=== PATIENT | female | born 1955 | race African-American/Black ===

== ENCOUNTER 2020-05-08 15:06 | Outpatient (REF) | payer MEDICARE, MEDICAID, SELFPAY ==
[2020-05-08 16:11] LABS: Estimated Average Glucose 160 mg/dL; Hemoglobin A1c % 7.2 %
== END 2020-05-08 15:07 | disposition home or self-care (01) ==
LOC: HO.LAB 15:06
PROVIDERS: Absent Provider Internal Medicine Endocrinology, Diabetes & Metabolism; PCP Internal Medicine; Visit Provider Internal Medicine
DX: E11.65 Type 2 diabetes mellitus with hyperglycemia (principal)
CPT/HCPCS: 36415; 83036

== ENCOUNTER 2020-09-12 16:25 | Outpatient (REF) | payer MEDICARE, MEDICAID, SELFPAY ==
[2020-09-12 16:48] LABS: MANUAL DIFF FLAG NO
[2020-09-12 16:51] LABS: Basophils Percent Auto 0.6 % (0-2); Eosinophils Absolute Auto 0.1 X10*3/uL (0.0-0.4); Eosinophils Percent Auto 2.8 % (0-4); Hematocrit 36.6 % (37-47); Hemoglobin 12.4 g/dl (12.0-16.0); Lymphocytes Absolute Auto 2.1 X10*3/uL (1.2-4.9); Lymphocytes Percent Auto 45.5 % (20-40); Mean Corpuscular HGB Conc 33.9 g/dl (31.0-35.0); Mean Corpuscular Hemoglobin 29.7 pg (27.0-33.0); Mean Corpuscular Volume 87.8 fL (80-98); Mean Platelet Volume 9.8 fL (9.4-12.3); Monocytes Absolute Auto 0.5 X10*3/uL (0.1-1.2); Neutrophils Absolute Auto 1.9 X10*3/uL (2.0-8.3); Neutrophils Percent Auto 40.1 % (45-73); Platelet Count 244 X10*3/uL (160-400); Red Blood Count 4.17 X10*6/uL (4.20-5.50); White Blood Count 4.6 X10*3/uL (4.8-10.8)
[2020-09-12 17:15] LABS: Alanine Aminotransferase 14 U/L (0-31); Albumin Level 4.3 g/dL (3.5-5.0); Alkaline Phosphatase 70 U/L (39-117); Anion Gap 12 (12-20); Aspartate Amino Transferase 17 U/L (5-31); Bilirubin Total 0.6 mg/dL (0.0-1.0); Calcium 9.9 mg/dL (8.4-10.2); Carbon Dioxide 26 mmol/L (22-29); Chloride 107 mmol/L (96-108); Cholesterol 180 mg/dL; Estimated Glomerular Filt Rate > 60; Glucose Fasting 125 mg/dL (60-99); HDL Cholesterol 74 mg/dL; LDL Cholesterol Calculated 92 mg/dl; Potassium 4.2 mmol/L (3.3-5.1); Sodium 141 mmol/L (135-145); Total Protein 7.2 g/dL (6.5-8.0); Triglycerides 73 mg/dL
[2020-09-12 17:24] LABS: Blood Urea Nitrogen 15 mg/dL (9-16)
== END 2020-09-12 16:26 | disposition home or self-care (01) ==
LOC: HO.LAB 16:25
PROVIDERS: PCP Internal Medicine; Visit Provider Nurse Practitioner Family
DX: I10 Essential (primary) hypertension (principal); E78.5 Hyperlipidemia, unspecified; Z13.1 Encounter for screening for diabetes mellitus
CPT/HCPCS: 36415; 80053; 80061; 85025

== ENCOUNTER 2021-01-09 10:29 | Outpatient (REF) | payer MEDICARE, MEDICAID, SELFPAY ==
--- NOTE | ~2021-01-09 | US_ITS ---
EXAMINATION: US ABDOMEN COMPLETE CLINICAL INFORMATION: Unspecified abdominal pain. COMPARISON: None TECHNIQUE: Real-time imaging of the abdominal viscera. FINDINGS: PANCREAS: Normal. ABDOMINAL AORTA: The proximal, mid, and distal segments are normal in caliber. INFERIOR VENA CAVA: Visualized portions are normal. LIVER: The liver is normal in size. The liver contour is normal. The liver echotexture is normal. No focal hepatic lesion. There is no intrahepatic biliary duct dilatation seen. GALLBLADDER: The gallbladder is physiologically distended without evidence of stones, sludge, polyps, wall thickening or pericholecystic fluid. COMMON BILE DUCT: Normal in caliber measuring 0.5 cm in diameter. RIGHT KIDNEY: Normal. No hydronephrosis. No renal calculi or focal parenchymal lesions. The kidney measures 11.0 cm in maximum dimension. LEFT KIDNEY: There is a 1.1 x 1 x 1.4 cm cyst in the lower pole. No hydronephrosis or renal calculi. The kidney measures 9.5 cm in maximum dimension. SPLEEN: Normal. The spleen measures 9.0 cm in maximum dimension. FREE FLUID: None. US/US abdomen complete IMPRESSION: Small left renal cyst otherwise unremarkable exam.
== END 2021-01-09 10:30 | disposition home or self-care (01) ==
LOC: HO.US 10:29
PROVIDERS: PCP Internal Medicine; Visit Provider Internal Medicine
DX: R10.9 Unspecified abdominal pain (principal)
CPT/HCPCS: 76700

== ENCOUNTER 2021-04-22 13:38 | Outpatient (REF) | payer MEDICARE, MEDICAID, SELFPAY ==
[2021-04-22 14:35] LABS: COVID-19 Test Negative (Negative); IDNOW Serial# 16C4AD1C
== END 2021-04-22 13:39 | disposition home or self-care (01) ==
LOC: HO.LAB 13:38
PROVIDERS: Visit Provider Internal Medicine
DX: Z20.822 Contact with and (suspected) exposure to COVID-19 (principal)
CPT/HCPCS: 87635; C9803

== ENCOUNTER 2021-04-24 13:11 | Outpatient (REF) | payer MEDICARE, MEDICAID, SELFPAY ==
[2021-04-24 14:11] LABS: Hematocrit 38.1 % (37.0-47.0); Hemoglobin 13.2 g/dl (12.0-16.0); Mean Corpuscular HGB Conc 34.6 g/dl (31.0-35.0); Mean Corpuscular Hemoglobin 30.3 pg (27.0-33.0); Mean Corpuscular Volume 87.4 fL (80.0-98.0); Mean Platelet Volume 10.2 fL (9.4-12.3); Platelet Count 247 X10*3/uL (160-400); Red Blood Count 4.36 X10*6/uL (4.20-5.50); Red Cell Distribution Width 12.5 % (11.0-16.0)
[2021-04-24 14:35] LABS: Estimated Average Glucose 151 mg/dL; Hemoglobin A1c % 6.9 %
[2021-04-24 14:45] LABS: Alanine Aminotransferase 11 U/L (0-31); Albumin Level 4.2 g/dL (3.5-5.0); Alkaline Phosphatase 67 U/L (39-117); Anion Gap 14 (12-20); Aspartate Amino Transferase 13 U/L (5-31); Bilirubin Direct 0.2 mg/dL (0.0-0.5); Bilirubin Total 0.5 mg/dL (0.0-1.0); Blood Urea Nitrogen 15 mg/dL (9-16); Calcium 9.8 mg/dL (8.4-10.2); Carbon Dioxide 24 mmol/L (22-29); Chloride 106 mmol/L (96-108); Cholesterol 223 mg/dL; Estimated Glomerular Filt Rate > 60; Glucose Random 131 mg/dL (60-115); HDL Cholesterol 81 mg/dL; LDL Cholesterol Calculated 127 mg/dl; Potassium 3.7 mmol/L (3.3-5.1); Sodium 140 mmol/L (135-145); Total Protein 7.4 g/dL (6.5-8.0); Triglycerides 78 mg/dL
[2021-04-30 15:51] LABS: Vitamin D 25-OH, D2 <4 ng/mL; Vitamin D 25-OH, D3 19 ng/mL; Vitamin D 25-OH, Total 19 ng/mL (30-100)
== END 2021-04-24 13:12 | disposition home or self-care (01) ==
LOC: HO.LAB 13:11
PROVIDERS: PCP Internal Medicine; Visit Provider Internal Medicine
DX: E11.65 Type 2 diabetes mellitus with hyperglycemia (principal); E78.2 Mixed hyperlipidemia; I10 Essential (primary) hypertension; R07.9 Chest pain, unspecified
CPT/HCPCS: 36415; 80048; 80061; 80076; 82306; 83036; 84443; 85027

== ENCOUNTER 2021-04-30 14:07 | Outpatient (REF) | payer MEDICARE, MEDICAID, SELFPAY ==
[2021-04-30 14:33] LABS: Binax Internal Control QC Valid; Binax Now Covid-19 Ag Negative (Negative)
[2021-04-30 15:48] LABS: Creatinine Urine 82.52 mg/dL; Microalbum/Creatinine Ratio Ur 13.3 ug/mg cr
== END 2021-04-30 14:08 | disposition home or self-care (01) ==
LOC: HO.LAB 14:07
PROVIDERS: Internal Medicine; Visit Provider Internal Medicine
DX: Z20.822 Contact with and (suspected) exposure to COVID-19 (principal); E11.65 Type 2 diabetes mellitus with hyperglycemia; E78.2 Mixed hyperlipidemia; I10 Essential (primary) hypertension
CPT/HCPCS: 82043; C9803

== ENCOUNTER 2021-11-24 13:46 | Outpatient (REF) | payer MEDICARE, MEDICAID, SELFPAY ==
[2021-11-24 14:44] LABS: COVID-19 Test Negative (Negative)
== END 2021-11-24 13:47 | disposition home or self-care (01) ==
LOC: HO.LAB 13:46
PROVIDERS: Visit Provider Internal Medicine
DX: Z20.822 Contact with and (suspected) exposure to COVID-19 (principal)
CPT/HCPCS: 87635; C9803

== ENCOUNTER 2021-12-12 12:01 | Outpatient (REF) | payer MEDICARE, MEDICAID, SELFPAY ==
[2021-12-12 13:20] LABS: COVID-19 Test Negative (Negative); IDNOW Serial# 9DB6401D
== END 2021-12-12 12:02 | disposition home or self-care (01) ==
LOC: HO.LAB 12:01
PROVIDERS: Visit Provider Internal Medicine
DX: Z20.822 Contact with and (suspected) exposure to COVID-19 (principal)
CPT/HCPCS: 87635; C9803

== ENCOUNTER 2022-04-21 14:46 | Outpatient (REF) | payer MEDICARE, MEDICAID, SELFPAY ==
[2022-04-21 15:25] LABS: Hematocrit 38.5 % (37.0-47.0); Hemoglobin 13.3 g/dl (12.0-16.0); Mean Corpuscular HGB Conc 34.5 g/dl (31.0-35.0); Mean Corpuscular Volume 86.7 fL (80.0-98.0); Mean Platelet Volume 9.8 fL (9.4-12.3); Platelet Count 310 X10*3/uL (160-400); Red Blood Count 4.44 X10*6/uL (4.20-5.50); Red Cell Distribution Width 12.6 % (11.0-16.0); White Blood Count 8.1 X10*3/uL (4.8-10.8)
[2022-04-21 16:08] LABS: Alanine Aminotransferase 10 U/L (0-31); Albumin Level 4.2 g/dL (3.5-5.0); Alkaline Phosphatase 71 U/L (39-117); Anion Gap 17 (12-20); Aspartate Amino Transferase 14 U/L (5-31); Bilirubin Direct 0.3 mg/dL (0.0-0.5); Bilirubin Total 0.7 mg/dL (0.0-1.0); Blood Urea Nitrogen 24 mg/dL (9-16); Calcium 9.7 mg/dL (8.4-10.2); Carbon Dioxide 26 mmol/L (22-29); Chloride 100 mmol/L (96-108); Cholesterol 189 mg/dL; Estimated Glomerular Filt Rate 50; Glucose Random 219 mg/dL (60-115); HDL Cholesterol 70 mg/dL; LDL Cholesterol Calculated 101 mg/dl; Potassium 3.8 mmol/L (3.3-5.1); Sodium 139 mmol/L (135-145); Total Protein 7.6 g/dL (6.5-8.0); Triglycerides 93 mg/dL
[2022-04-21 16:13] LABS: Thyroid Stimulating Hormone 0.41 uIU/mL (0.32-4.0)
== END 2022-04-21 14:47 | disposition home or self-care (01) ==
LOC: HO.LAB 14:46
PROVIDERS: PCP Internal Medicine; Visit Provider Internal Medicine
DX: E11.65 Type 2 diabetes mellitus with hyperglycemia (principal); I10 Essential (primary) hypertension; E78.2 Mixed hyperlipidemia; E78.5 Hyperlipidemia, unspecified
CPT/HCPCS: 36415; 80048; 80061; 80076; 84443; 85027

== ENCOUNTER 2022-10-14 16:03 | Emergency (ER) | payer MEDICARE, MEDICAID, SELFPAY ==
--- NOTE | ~2022-10-14 | XR_ITS ---
EXAMINATION: XR TIBIA AND FIBULA, LEFT CLINICAL INFORMATION: Mid calf swelling. COMPARISON: None available. TECHNIQUE: AP and lateral views of the left tibia and fibula were obtained. FINDINGS: The bones and soft tissues are normal. No fracture. No osseous lesions. XR/XR tibia fibula LT 2V IMPRESSION: Unremarkable left tibia and fibula.
--- NOTE | 2022-10-14 16:40 | ED_ITS ---
HPI - General Adult General Chief complaint: Extremity Injury, Lower Stated complaint: Bump on left leg Time Seen by Provider: 10/14/22 19:11 Source: patient Mode of arrival: ambulatory Limitations: no limitations History of Present Illness HPI narrative: Patient is a 67-year-old female with a past medical history of hypercholesterolemia, diabetes, hyperlipidemia presenting with left lower extremity pain. Patient reports that she hit her leg on her car approximately 3 weeks ago and developed a bump on her anterior shabazz of her left leg. Patient reports she is able to ambulate without issues but the bump is tender to palpation. Patient denies fever, chills, night sweats, headache, vision changes, nausea, vomiting, chest pain, shortness of breath, numbness, tingling. Related Data Home Medications Medication Instructions Recorded Confirmed glipizide 5 mg tablet 10 mg PO BID 04/24/21 10/07/22 Previous Rx's Medication Instructions Recorded metformin 1,000 mg tablet 1,000 mg PO BID #180 tabs 12/16/20 metoprolol succinate 50 mg 50 mg PO BID #180 tabs 05/13/22 tablet,extended release 24 hr hydrochlorothiazide 25 mg tablet 25 mg PO QAM #90 tabs 07/07/22 simvastatin 10 mg tablet 10 mg PO BEDTIME #90 tabs 07/07/22 ketorolac 10 mg tablet 10 mg PO TID PRN pain 5 days #15 10/14/22 tabs Allergies Allergy/AdvReac Type Severity Reaction Status Date / Time No Known Allergies Allergy Verified 10/14/22 16:41 Review of Systems Review of Systems: Constitutional : No Weight loss, No Fever, No Chills, No Fatigue, No Malaise ENT/Mouth : No sore throat, No Rhinorrhea Eyes: No Eye Pain, No Swelling, No Redness Cardiovascular : No Chest Pain, No SOB, No Dyspnea on Exertion, No Orthopnea, No Edema, No Palpitations Respiratory : No Cough, No Sputum, No Wheezing Gastrointestinal : No Nausea, No Vomiting, No Diarrhea, No Constipation, No abdominal Pain, No Hematochezia, No Melena Genitourinary : No Dysuria, No Urinary Frequency, No Hematuria, Musculoskeletal : No joint pain, No Myalgias, No Joint Swelling +shabazz pain Skin : No Skin Lesions, No rash Neuro : No Weakness, No Numbness, No Dizziness, No Headache Psych : No Anxiety/Panic, No Depression All other systems reviewed and are negative Yes all other systems are reviewed and are negative [facility] Past Medical History Attestation statement: The following information was validated with the patient. Source: old records reviewed and nursing notes reviewed Medical History (Updated 10/14/22 @ 19:28 by JUSTIN Guevara) Adult general medical exam Benign essential HTN Hypercholesterolemia with hypertriglyceridemia Hyperlipidemia Screening for diabetes mellitus Type 2 diabetes mellitus with hyperglycemia Surgical History History of colonoscopy History of eye surgery History of partial hysterectomy Family History Family History Father No problems noted. Mother No problems noted. Sister No problems noted. Social History Social History Housing: House Alcohol intake: never Patient Tobacco Use Status: Never used Tobacco e-Cigarette/Vaping Use: Never Used Second Hand Smoke Exposure: No Advance Directives: No Advance Directives Information Provided: Yes service: No Current occupational status: retired Cognitive needs: No Hearing needs: No Vision needs: No Physical Exam ED Vital Signs: Vital Signs - 24 hr 10/14/22 16:41 Temperature 97.3 F Pulse Rate 72 Respiratory Rate 16 Blood Pressure 134/72 Pulse Oximetry 99 Oxygen Delivery Method Room Air BMI result Body Mass Index 23.6 vss Appearance: Alert.? Oriented X3.? No acute distress.? Head: Normocephalic, atraumatic, no step-offs or deformities Eyes: Pupils equal, round and reactive to light.? ENT: External ears normal. No pain with manipulation of external ears bilaterally. No mastoid tenderness. Neck: Normal inspection.? Neck supple.? CVS: Normal heart rate and rhythm.? Pulses normal.? Respiratory: No respiratory distress.? Breath sounds normal.? Abdomen: Soft and nontender.? Skin: Skin warm and dry.? Normal skin color.? Normal skin turgor.? Extremities: No lower extremity edema.? No calf ttp. 5/5 strength to bilateral upper and lower extremities +small bump on left anterior shabazz ttp Neuro: Oriented X 3.? No motor deficit.? No sensory deficit. CN 2-12 intact Course Course Course Narrative: This is a rapid medical exam: Additional HPI, ROS, PE not included below will be deferred to primary provider. Patient is a 67-year-old female with history of T2DM, hypercholesterolemia, hypertriglyceridema, HTN presenting to the emergency department with complaint of pain and swelling to left lower leg for the past 3 weeks. She reports initially injuring her leg by bumping it against the edge of her car. States she iced the area for the first week, has not used any OTC medications. Denies any numbness or tingling. Ambulating without difficulty. Mild swelling to mid anterior lower leg on left side, area is tender to palpation. No ecchymosis, erythema or warmth. Plan: x-ray Reevaluation(s) Reevaluation #1: X-ray unremarkable. Patient discharged Toradol. Educated patient on diagnosis and treatment plan, answered all question, patient verbalizes understanding. At this time patient will be discharged home, advised to return with new or worsening symptoms. Educated on worrisome signs and symptoms and when to return. At this time I feel comfortable discharge home. Medications Administered Discontinued Medications Generic Name Dose Route Start Last Admin Trade Name Freq PRN Reason Stop Dose Admin Ketorolac Tromethamine 30 mg 10/14/22 19:27 10/14/22 19:44 Ketorolac Tromethamine 15 Mg/Ml Vial IM 10/14/22 19:28 30 mg ONCE ONE Administration Medical Decision Making Medical Decision Making MDM Narrative: 67-year-old female with left lower extremity pain. Physical exam revealed small bump on left anterior shabazz. Tender to palpation. 3/10 pain Likely bone contusion. Unlikely fracture, dislocation, threatened limb, neurovascular compromise. plan: X-ray Differential Diagnosis Differential Diagnoses: The differential diagnosis associated with the presentation includes Likely bone contusion. Unlikely fracture, dislocation, threatened limb, neurovascular compromise. Admission/Observation Consideration of admission/observation: Escalation of care including admission/observation considered Unlikely Independent Interpretation I performed an independent interpretation of an: Plain X-Ray (The bones and soft tissues are normal. No fracture. No osseous lesions.) Radiology Impression Discussion of test interpretation with radiology: I have reviewed the radiologist's reading. Radiologist Impression: The bones and soft tissues are normal. No fracture. No osseous lesions. Prescription Management I considered prescription management with: Pain Medication Core Measures AMI core measures followed: Yes Measure exclusions: not indicated Critical Care Time Critical Care Time Critical Care Time: No Discharge Plan Discharge Clinical Impression: Contusion, Pain in left shabazz Patient Disposition: Home, Self-Care Instructions: Leg Pain (ED), Bone Bruise (ED) Additional Instructions: Take your medications as prescribed. If you were prescribed antibiotics today, it is important that you take your medication to their entirety, do not skip any doses, do not finish them early. Follow-up with your primary care provider this week. Return to the emergency department with new or worsening symptoms. Such as fevers, chills, chest pain, shortness of breath, nausea, vomiting, dizziness, headache, vision changes, lethargy In case of emergency call 911 Toradol has been sent to your pharmacy, you tolerated this well in the department. Please take this as prescribed do not take this with ibuprofen, or other NSAIDs, do not mix this with alcohol. Side effects of this medication including increased risk for bleeding and possible kidney injury. XR/XR tibia fibula LT 2V IMPRESSION: Unremarkable left tibia and fibula. Prescriptions: New ketorolac 10 mg tablet 10 mg PO TID PRN (Reason: pain) 5 Days Qty: 15 0RF No Action metoprolol succinate 50 mg tablet extended release 24 hr 50 mg PO BID Qty: 180 1RF hydrochlorothiazide 25 mg tablet 25 mg PO QAM Qty: 90 1RF simvastatin 10 mg tablet 10 mg PO BEDTIME Qty: 90 1RF metformin 1,000 mg tablet 1,000 mg PO BID Qty: 180 1RF glipizide 5 mg tablet 10 mg PO BID Referrals: [facility] [place] [Provider Group] - 2 weeks Jeremy Yip MD [Primary Care Provider] - 2 days Interventions: ED Discharge Assessment Last Done: 10/14/22 19:48 Discharge Date/Time: 10/14/22 19:48
[2022-10-14 16:41] VITALS: BP 134/72; PULSE 72; RESP 16; TEMP 36.3; O2SAT 99; BMI 23.6
[2022-10-14] MEDS: Ketorolac Tromethamine 15 MG/ML VIAL 30 MG IM (19:44)
== END 2022-10-14 19:48 | disposition home or self-care (01) ==
PROVIDERS: Emergency Provider Emergency Medicine Emergency Medical Services; PCP Internal Medicine
DX: M79.662 Pain in left lower leg (principal); S80.12XA Contusion of left lower leg, initial encounter; W22.09XA Striking against other stationary object, initial encounter; Y93.89 Activity, other specified; Y92.810 Car as the place of occurrence of the external cause; Y99.9 Unspecified external cause status
CPT/HCPCS: 73590; 96372; 99283; 99284; J1885

== ENCOUNTER 2023-04-08 14:00 | Outpatient (AMB) | payer MEDICARE, MEDICAID, SELFPAY ==
--- NOTE | 2023-04-08 14:17 | MHC.PC.OV ---
Vital Signs 04/08/23 14:20 04/08/23 14:36 Height 5 ft 5 in Weight 140 lb 2 oz BMI 23.3 BP 142/62 H 122/60 Blood Pressure Location Lt brachial Lt brachial Position Sitting Sitting Pulse 85 Pulse Source Pulse Oximeter Pulse Oximetry (%) 99 Oxygen Delivery Method Room Air Intake Visit Reasons: 6mth f/u Intake Note: Patient is here to follow up on DM, HTN, Hyperlipidemia. Formwork Carpenter Required: No Radioactivity Technician: Not Required per policy Accompanied by: Self / Same As Patient Allergies No Known Allergies Allergy (Verified 04/11/23 09:02) Medication List - Last Reconciled 04/11/23 by Jeremy Yip MD glipizide 10 mg PO BID hydrochlorothiazide 25 mg PO QAM metformin 1,000 mg PO BID metoprolol succinate ER 50 mg PO BID simvastatin 10 mg PO BEDTIME Tobacco use date assessed: 04/08/23 Fall risk assessment: No Falls in past year Last assessed Fall Risk: 04/08/23 Dental Screening Dental Screen Date: 04/08/23 Did you have a dental visit in the last 12 months?: No Did you have a dental problem in the last 6 months where you did not have access to dental care?: No Was dental information given to patient?: No HPI 6mth f/u HPI Details 67-year-old female presents to the office to discuss her chronic medical conditions. Patient over the last month has been very lows with her diet. Has been consuming a lot of sugars and simple carbohydrates. She does not check her blood sugars routinely. Able to function and do her activities of daily living. Patient is scheduled for a colonoscopy. [facility] Medical History Adult general medical exam Screening for diabetes mellitus Hyperlipidemia Type 2 diabetes mellitus with hyperglycemia Hypercholesterolemia with hypertriglyceridemia Benign essential HTN Surgical History History of colonoscopy History of partial hysterectomy History of eye surgery Family History Father No problems noted. Mother No problems noted. Sister No problems noted. Social History Housing: House Alcohol intake: never Patient Tobacco Use Status: Never used Tobacco e-Cigarette/Vaping Use: Never Used Second Hand Smoke Exposure: No service: No Current occupational status: retired Cognitive needs: No Hearing needs: No Vision needs: No Questionnaire PHQ-9 Over the last 2 weeks, how often have you been bothered by any of the following problems? 1. Little interest or pleasure in doing things: not at all 2. Feeling down, depressed, or hopeless: not at all 3. Trouble falling or staying asleep, or sleeping too much: not at all 4. Feeling tired or having little energy: not at all 5. Poor appetite or overeating: not at all 6. Feeling bad about yourself - or that you are a failure or have let yourself or your family down: not at all 7. Trouble concentrating on things, such as reading the newspaper or watching television: not at all 8. Moving or speaking so slowly that other people could have noticed. Or the opposite - being so fidgety or restless that you have been moving around a lot more than usual: not at all 9. Thoughts that you would be better off or of hurting yourself in some way: not at all Total score: 0 Depression Screening Interpretation: Negative Depression Screening Done: Yes Source: Developed by Drs. Javier Marmolejo, Miya Abernathy, Blayne Price and colleagues, with an educational lindsay from [employer]. Thrive Questionnaire Date Thrive assessed: 04/08/23 I am a: Patient What is your living situation today?: I have a steady place to live Within the past 12 months, did the food you bought not last and you didn't have the money to get more?: Never true Within the past 12 months, did you worry whether your food would run out before you got money to buy more?: Never true Do you have trouble paying for medicines?: No Do you have trouble getting transportation to medical appointments?: No Do you have trouble paying your heating and electricity bill?: No Do you have trouble taking care of your child, family member or friend?: No Do you have trouble with day-to-day activities such as bathing, preparing meals, shopping, managing finances, etc.?: No Are you currently unemployed and looking for a job?: No Are you interested in more education?: No Currently or been in a relationship where the following occur: no concerns reported AUDIT C Alcohol Use Questionnaire (AUDIT-C) 1. How often do you have a drink containing alcohol?: Never Total Score: 0 JEROME-7 AMB Questionnaire JEROME-7 Date JEROME - 7 assessed: 04/08/23 Feeling nervous, anxious, or on edge: 0 = Not at all Not being able to stop or control worryin = Not at all Worrying too much about different things: 0 = Not at all Trouble relaxin = Not at all Being so restless that it is hard to sit still: 0 = Not at all Becoming easily annoyed or irritable: 0 = Not at all Feeling afraid as if something awful might happen: 0 = Not at all Total JEROME-7 score (0-4 normal; 5-9 mild; 10-14 moderate; 15-21 severe): 0 Source: Developed by Drs. Javier Marmolejo, Miya Abernathy, Blayne Price and colleagues, with an educational lindsay from [employer]. Physical exam (Primary Care) Vital Signs: Last Vital Signs Pulse 85 04/08/23 14:20 BP 122/60 04/08/23 14:36 Pulse Ox 99 04/08/23 14:20 Oxygen Delivery Method Room Air 04/08/23 14:20 Care Plan Goal for BP management: Blood pressure is in range. Continue current medications. BMI result Body Mass Index 23.3 Tobacco/Smoking Status: Tobacco use Status Tobacco use date assessed 04/08/23 04/08/23 14:37 Patient Tobacco Use Status Never used Tobacco 04/08/23 14:37 e-Cigarette/Vaping Use Never Used 04/08/23 14:37 PHQ-9: PHQ-9 Score PHQ-9: Total score 0 04/09/23 13:25 Depression Screening Interpretation: Negative Thrive Assessment: Date of Thrive Assessment Date Thrive assessed 04/08/23 04/08/23 14:37 Currently or been in a relationship where the following occur: no concerns reported Const General: cooperative and healthy appearing Nutritional Appearance: well nourished Orientation/consciousness: patient oriented x3 Limitations: no limitations HENMT Head: Yes normal to inspection Eyes General: appearance normal, both eyes and all related structures Neck Neck: Yes normal visual inspection Chest Chest palpation & inspection: normal palpation of entire chest wall Resp Effort & Inspection: normal respiratory effort Neuro General: patient oriented x3 Office Procedures Flu Questionnaire Does the patient have a severe egg allergy?: No Does the patient have severe life threatening allergies?: No Does the patient have a fever or illness today?: No Has the patient ever had Guillain-[place] Syndrome?: No Has the patient ever had any past reaction to a flu shot?: No Results AMB Hemoglobin A1c AMB Hemoglobin A1c 11.1 % Last Edit by PATRICIA Silva on 04/08/23 14:41 Immunizations flu vacc [id number] 6mos up(PF) 60 mcg(15 mcgx4)/0.5 mL IM syringe Performing Provider: Jeremy Yip MD [facility] Administered by: PATRICIA Devries on 04/08/23 15:03 Dose Route Admin Location Dispensed Lot Number Expiration Date NDC Carpenter Labor Supervisor 0.5 mL IM Left Deltoid 0.5 mL [id number] 10/03/23 26439-112-04 [employer] VIS Given Date VIS Provided VIS Publication Date 04/08/23 Single Vaccine 20 Eligibility Eligibility Date Funding Source Not [facility] Eligible 04/08/23 Private Results Reviewed Results Reviewed: Laboratory Last Values Hgb A1c (Clinic) 11.1 % (4.0-6.0) H 04/08/23 14:17 Assessment and Plan Assessment & Plan (1) Type 2 diabetes mellitus with hyperglycemia: Code(s): E11.65 - Type 2 diabetes mellitus with hyperglycemia Qualifiers: Diabetes mellitus long-term insulin use: without intermediate designer use Qualified Code(s): E11.65 - Type 2 diabetes mellitus with hyperglycemia Plan: Patient's hemoglobin A1c is greater than 11. This is very concerning. I offered her new medications. Patient is not interested in taking the weekly injection. Jardiance has been added to the regimen. Patient was warned about the risks of high sugars. She has promised to change her diet and exercise more. She is also agreed to check her blood sugars more often. 20 minutes was spent counseling the patient. Orders: Orders AMB Hemoglobin A1c 04/08/23 E11.65 - Type 2 diabetes mellitus with hyperglycemia Influenza Immunization 04/08/23 Z23 - Encounter for immunization Medications: Refilled hydrochlorothiazide 25 mg PO QAM 90 tabs 1RF simvastatin 10 mg PO BEDTIME 90 tabs 1RF Coding Level of Care Code Est Pt Level 4 (99446) Diagnoses Type 2 diabetes mellitus with hyperglycemia, without long-term current use of insulin E11.65 Diabetes mellitus long-term insulin use: without intermediate designer use
[2023-04-08 14:20] VITALS: BP 142/62; PULSE 85; O2SAT 99; BMI 23.3
[2023-04-08 14:36] VITALS: BP 122/60
== END 2023-04-08 15:03 | disposition home or self-care (01) ==
PROVIDERS: PCP Internal Medicine; Visit Provider Internal Medicine
DX: E11.65 Type 2 diabetes mellitus with hyperglycemia (principal); Z23 Encounter for immunization
CPT/HCPCS: 83036; 90471; 90686; 99214

== ENCOUNTER 2023-08-10 14:01 | Outpatient (REF) | payer MEDICARE, MEDICAID, SELFPAY ==
[2023-08-10 15:32] LABS: Creatinine Urine 53.85 mg/dL; Microalbum/Creatinine Ratio Ur 12.9 ug/mg cr (<30)
[2023-08-10 16:08] LABS: Estimated Average Glucose 206 mg/dL; Hemoglobin A1c % 8.8 % (<6.0)
[2023-08-10 17:01] LABS: Vitamin B12 285 pg/mL (200-900)
[2023-08-10 20:06] LABS: Alanine Aminotransferase 13 U/L (0-31); Anion Gap 18 (12-20); Aspartate Amino Transferase 14 U/L (5-31); Blood Urea Nitrogen 23 mg/dL (9-16); Calcium 9.8 mg/dL (8.4-10.2); Carbon Dioxide 25 mmol/L (22-29); Chloride 102 mmol/L (96-108); Estimated Glomerular Filt Rate 52; Glucose Random 168 mg/dL (60-115); Potassium 3.9 mmol/L (3.3-5.1); Sodium 141 mmol/L (135-145)
[2023-08-10 20:21] LABS: TSH reflex Free T4 0.47 uIU/mL (0.32-4.0)
== END 2023-08-10 14:02 | disposition home or self-care (01) ==
LOC: HO.LAB 14:01
PROVIDERS: PCP Internal Medicine; Visit Provider Internal Medicine Endocrinology, Diabetes & Metabolism
DX: E11.42 Type 2 diabetes mellitus with diabetic polyneuropathy (principal); E04.2 Nontoxic multinodular goiter
CPT/HCPCS: 36415; 80048; 82043; 82570; 82607; 83036; 84443; 84450; 84460

== ENCOUNTER 2023-08-24 14:20 | Outpatient (AMB) | payer MEDICARE, MEDICAID, SELFPAY ==
--- NOTE | 2023-08-24 14:23 | MHC.PC.OV ---
Vital Signs 08/24/23 14:25 Height 5 ft 5 in Weight 134 lb 4 oz BMI 22.3 BP 100/68 Blood Pressure Location Lt brachial Position Sitting Pulse 70 Pulse Source Pulse Oximeter Pulse Oximetry (%) 97 Oxygen Delivery Method Room Air Intake Visit Reasons: medication follow up Intake Note: Patient is here to follow up on DM, HTN, HLD. Tool Radial Drill Press Set Up Operator Required: No Coal Feeder Operator: Not Required per policy Accompanied by: Self / Same As Patient Allergies No Known Allergies Allergy (Verified 08/24/23 14:25) Tobacco use date assessed: 08/24/23 Fall risk assessment: No Falls in past year Last assessed Fall Risk: 08/24/23 Dental Screening Dental Screen Date: 04/08/23 HPI medication follow up HPI Details 68-year-old female presents to the office to discuss chronic medical conditions. Since last office visit patient has been compliant with metformin, glipizide, Jardiance. She has had 1 urinary tract infection after starting Jardiance. Patient reports the blood sugar she has been recording at home is in the 130-150 range. Able to function and do all activities of daily living. [facility] Medical History Adult general medical exam Screening for diabetes mellitus Hyperlipidemia Type 2 diabetes mellitus with hyperglycemia Hypercholesterolemia with hypertriglyceridemia Benign essential HTN Surgical History History of colonoscopy History of partial hysterectomy History of eye surgery Family History Father No problems noted. Mother No problems noted. Sister No problems noted. Social History Housing: House Alcohol intake: never Patient Tobacco Use Status: Never used Tobacco e-Cigarette/Vaping Use: Never Used Second Hand Smoke Exposure: No service: No Current occupational status: retired Cognitive needs: No Hearing needs: No Vision needs: No Questionnaire Thrive Questionnaire Date Thrive assessed: 04/08/23 JEROME-7 AMB Questionnaire JEROME-7 Date JEROME - 7 assessed: 04/08/23 Source: Developed by Drs. Javier Marmolejo, Miya Abernathy, Blayne Price and colleagues, with an educational lindsay from [employer]. Physical exam (Primary Care) Vital Signs: Last Vital Signs Pulse 70 08/24/23 14:25 BP 100/68 08/24/23 14:25 Pulse Ox 97 08/24/23 14:25 Oxygen Delivery Method Room Air 08/24/23 14:25 BMI result Body Mass Index 22.3 Tobacco/Smoking Status: Tobacco use Status Tobacco use date assessed 08/24/23 08/24/23 14:27 Patient Tobacco Use Status Never used Tobacco 08/24/23 14:27 e-Cigarette/Vaping Use Never Used 08/24/23 14:27 Thrive Assessment: Date of Thrive Assessment Date Thrive assessed 04/08/23 08/24/23 14:27 Const General: cooperative and healthy appearing Nutritional Appearance: well nourished Orientation/consciousness: patient oriented x3 Limitations: no limitations HENMT Head: Yes normal to inspection Eyes General: appearance normal, both eyes and all related structures Neck Neck: Yes normal visual inspection Chest Chest palpation & inspection: normal palpation of entire chest wall Resp Effort & Inspection: normal respiratory effort Neuro General: patient oriented x3 Assessment and Plan Assessment & Plan (1) Type 2 diabetes mellitus with hyperglycemia: Code(s): E11.65 - Type 2 diabetes mellitus with hyperglycemia Qualifiers: Diabetes mellitus snf insulin use: without snf use Qualified Code(s): E11.65 - Type 2 diabetes mellitus with hyperglycemia Plan: Hemoglobin has improved from 11to 8.8. Patient is still very reluctant to take injectables. Continue same medications and will check in 3 months. Orders: Orders MM screening mammo BI Today Z12.31 - Encounter for screening mammogram for malignant neoplasm of breast Referrals [facility] [employer]ILD[employer] DES[employer] [facility]IST Referral Z12.4 - Encounter for screening for malignant neoplasm of cervix Medications: Refilled metformin 1,000 mg PO BID 180 tabs 1RF metoprolol succinate ER 50 mg PO BID 180 tabs 1RF glipizide 10 mg (2 x 5 mg) PO BID 60 tabs 0RF Coding Level of Care Code Est Pt Level 4 (93738) Diagnoses Type 2 diabetes mellitus with hyperglycemia, without long-term current use of insulin E11.65 Diabetes mellitus snf insulin use: without superintendent container terminal use
[2023-08-24 14:25] VITALS: BP 100/68; PULSE 70; O2SAT 97; BMI 22.3
== END 2023-08-24 15:07 | disposition home or self-care (01) ==
PROVIDERS: PCP Internal Medicine; Visit Provider Internal Medicine
DX: E11.65 Type 2 diabetes mellitus with hyperglycemia (principal)
CPT/HCPCS: 99214

== ENCOUNTER 2023-11-18 12:08 | Emergency (ER) | payer MEDICARE, MEDICAID, SELFPAY ==
[2023-11-18 12:18] VITALS: BP 119/70; PULSE 97; RESP 16; TEMP 36.9; O2SAT 98; BMI 22.7
--- NOTE | 2023-11-18 12:18 | ED.URI ---
HPI - URI/Sore Throat General Chief Complaint: Upper Respiratory Symptoms Stated Complaint: covid test Time Seen by Provider: 11/18/23 12:48 Source: patient Mode of arrival: ambulatory History of Present Illness ED Provider: Onel Wise PA-C HPI Narrative: 68 yo female with history of DM2, HTN, HLD who presents to the ER for evaluation of fever 100.4, dry cough and runny nose that started yesterday. Nonsmoker, no pulmonary history. No chest pain or SOB. She was at a family function over the weekend and was around a lot of people, but no known sick contacts. She is concerned she may have COVID. MD elicited complaint: fever, cough and rhinorrhea Onset (ago): day(s) (1) Consistency: intermittent Severity: moderate Description of mucous: clear Able to tolerate fluids by mouth: Yes Exacerbating factors: nothing Relieving factors: nothing Associated symptoms: fever and rhinorrhea Treatments prior to arrival: none Related Data Previous Rx's ?Medication ?Instructions ?Recorded empagliflozin 25 mg tablet 25 mg PO DAILY #90 tabs 04/12/23 (Jardiance) hydrochlorothiazide 25 mg tablet 25 mg PO QAM #90 tabs 06/07/23 simvastatin 10 mg tablet 10 mg PO BEDTIME #90 tabs 06/07/23 glipizide 5 mg tablet 10 mg (2 x 5 mg) PO BID #60 tabs 08/24/23 metformin 1,000 mg tablet 1,000 mg PO BID #180 tabs 08/24/23 metoprolol succinate 50 mg 50 mg PO BID #180 tabs 09/16/23 tablet,extended release 24 hr Allergies Allergy/AdvReac Type Severity Reaction Status Date / Time No Known Allergies Allergy Verified 11/18/23 12:20 Review of Systems Review of Systems: Yes all other systems are reviewed and are negative [facility] Past Medical History Medical History Adult general medical exam Screening for diabetes mellitus Hyperlipidemia Type 2 diabetes mellitus with hyperglycemia Hypercholesterolemia with hypertriglyceridemia Benign essential HTN Surgical History History of colonoscopy History of partial hysterectomy History of eye surgery Family History Family History Father No problems noted. Mother No problems noted. Sister No problems noted. Social History Social History Housing: House Alcohol intake: never Patient Tobacco Use Status: Never used Tobacco e-Cigarette/Vaping Use: Never Used Second Hand Smoke Exposure: No Advance Directives: No Advance Directives Information Provided: No service: No Current occupational status: retired Cognitive needs: No Hearing needs: No Vision needs: No Physical Exam Vital Signs: Vital Signs: Last Vital Signs Temp 98.5 F 11/18/23 13:01 Pulse 97 11/18/23 13:01 Resp 16 11/18/23 13:01 BP 119/70 11/18/23 13:01 Pulse Ox 98 11/18/23 13:01 O2 Del Method Room Air 11/18/23 12:18 BMI result Body Mass Index 22.7 Appearance: Alert. Oriented X3. No acute distress. Head: normocephalic, atraumatic. Eyes: Pupils equal, round and reactive to light. ENT: Pharynx normal. No tonsillar swelling or exudate. Neck: Normal inspection. Neck supple. CVS: Normal heart rate and rhythm. Pulses normal. Respiratory: No respiratory distress. Breath sounds normal. Abdomen: Thin, Soft and nontender. +BS x4 Skin: Skin warm and dry. Normal skin color. Normal skin turgor. No rashes. Extremities: No lower extremity edema. No joint swelling. Neuro/psych: Oriented X 3. Grossly normal, nonfocal Medical Decision Making Medical Decision Making MDM Narrative: 68 yo female presenting to the ER for evaluation of fevers, cough, URI sxs since yesterday. VS are stable on arrival to the ER. No productive cough or abnormal breath sounds to suggest PNA. ok to hold off on CXR today. She is breathing comfortably and speaking in complete sentences. no coughing noted. exam is benign. no KENNY with ambulation observed. Found to be COVID + patient counseled on dx and management along with preturn precautions. comfortable with discharge home and outpatient follow up Differential Diagnosis Differential Diagnoses: The differential diagnosis associated with the presentation includes strep, covid, flu, rsv, other viral syndrome, bronchitis, pneumonia Admission/Observation Consideration of admission/observation: Escalation of care including admission/observation considered elderly female with covid, considered obs vs admit however no pulm history and VS are stable. Lab Data MDM Lab Attestation statement: I reviewed the patient's lab results. Labs: Lab Results 11/18/23 Range/Units 12:27 COVID-19 (LEAH) Positive A (Negative) COVID-19 Clin Com See Note External Record Review External record reviewed: Outpatient record and Prior outpatient labs Tests considered The following testing was considered but not selected: CXR considered Prescription Management I considered prescription management with: Pain Medication, Antiviral and Antibiotic Critical Care Time Critical Care Time Critical Care Time: No Discharge Plan Discharge Clinical Impression: COVID-19 Patient Disposition: Home, Self-Care Instructions: COVID-19 (Coronavirus Disease 2019) (ED) Additional Instructions: You were found to be COVID-19 POSITIVE today. Your exam and oxygen levels were normal. Rest. Drink plenty of fluids. Do not go out in public while you are not feeling well. Take over the counter cold/flu medications as needed for your symptoms. Take Tylenol and/or Motrin as needed for fevers and body aches. Follow up with your doctor as needed. If you develop new or worsening symptoms call 911 or come back to the ER for further evaluation. Prescriptions: No Action Jardiance 25 mg tablet 25 mg PO DAILY Qty: 90 1RF hydrochlorothiazide 25 mg tablet 25 mg PO QAM Qty: 90 1RF simvastatin 10 mg tablet 10 mg PO BEDTIME Qty: 90 1RF metoprolol succinate 50 mg tablet extended release 24 hr 50 mg PO BID Qty: 180 1RF metformin 1,000 mg tablet 1,000 mg PO BID Qty: 180 1RF glipizide 5 mg tablet 10 mg PO BID Qty: 60 0RF Interventions: ED Discharge Assessment Last Done: 11/18/23 13:01 Discharge Date/Time: 11/18/23 13:01 Print Language: Greenlandic
[2023-11-18 12:39] LABS: COVID-19 Test Positive (Negative); IDNOW Serial# 08D9AD1C
[2023-11-18 13:01] VITALS: BP 119/70; PULSE 97; RESP 16; TEMP 36.9; O2SAT 98
== END 2023-11-18 13:01 | disposition home or self-care (01) ==
PROVIDERS: Physician Assistant; Emergency Provider Emergency Medicine; PCP Internal Medicine
DX: U07.1 COVID-19 (principal); J02.9 Acute pharyngitis, unspecified; Z79.899 Other long term (current) drug therapy
CPT/HCPCS: 87635; 99282; 99283

== ENCOUNTER 2023-12-16 13:33 | Outpatient (AMB) | payer MEDICARE, MEDICAID, SELFPAY ==
--- NOTE | 2023-12-16 13:36 | AM.OFFVISMDC ---
Intake Vital Signs 12/16/23 13:43 Height 5 ft 4 in Weight 128 lb 6 oz BMI 22.0 BP 110/70 Blood Pressure Location Lt brachial Position Sitting Pulse 82 Pulse Source Pulse Oximeter Pulse Oximetry (%) 100 Oxygen Delivery Method Room Air Intake Visit Reasons: IFEOMA G0439 Intake Note: Patient is here for an Annual Wellness Visit. Quality Analyst/Technical Writer Required: No Ed Educational Aide: Ed Educational Aide offered & declined Accompanied by: Self / Same As Patient Allergies No Known Allergies Allergy (Verified 12/16/23 13:43) HPI SWV G0439 HPI Details 68-year-old female presents to the office requesting an annual wellness visit. In addition patient wishes to discuss her diabetes. She had declined the use of injectables in the last office visit. Patient reports that her blood sugars have improved. She is concerned about her losing weight. She also has irritation around her eye that is recent. Patient had stopped the Jardiance on her own 3 weeks ago. [facility] Medical History Adult general medical exam Screening for diabetes mellitus Hyperlipidemia Type 2 diabetes mellitus with hyperglycemia Hypercholesterolemia with hypertriglyceridemia Benign essential HTN Surgical History History of colonoscopy (~08/20/17) History of partial hysterectomy History of eye surgery Family History Father No problems noted. Mother No problems noted. Sister No problems noted. Social History Housing: House Alcohol intake: never Patient Tobacco Use Status: Never used Tobacco e-Cigarette/Vaping Use: Never Used Second Hand Smoke Exposure: No service: No Current occupational status: retired Cognitive needs: No Hearing needs: No Vision needs: No Questionnaire Medicare Wellness Checkup [age] What gender do you identify with?: female During the past 4 weeks, how much have you been bothered by emotional problems such as feeling anxious, depressed, irritable, sad or downhearted, and blue?: not at all During the past 4 weeks, has your physical & emotional health limited your social activities with family, friends, neighbors, or groups?: not at all During the past 4 weeks, how much bodily pain have you generally had?: very mild pain During the past 4 weeks, was someone available to help you if you needed & wanted help?: yes, as much as I wanted During the past 4 weeks, what was the hardest physical activity you could do for at least 2 minutes?: heavy Can you get to places out of walking distance without help? (For eg., can you travel alone on buses, taxis or drive your car?): Yes Can you go shopping for groceries or clothes without someone's help?: Yes Can you prepare your own meals?: Yes Can you do your housework without help?: Yes Because of any health problems, do you need the help of another person with your personal care needs such as eating, bathing, dressing or getting around the house?: No Can you handle your own money without help?: Yes During the past 4 weeks, how would you rate your health in general?: very good During the past 4 weeks how have things been going for you?: pretty well Are you having difficulties driving your car?: no Do you always fasten your seat belt when you are in a car?: yes, usually During past 4 weeks, have you been bothered by the following: never: Falling or dizzy when standing up, Sexual problems?, Trouble eating well?, Teeth or denture problems? and Problems using the telephone? and seldom: Tiredness or fatigue? Have you fallen 2 or more times in the past year?: No Are you afraid of falling?: Yes Are you a smoker?: no During the past 4 weeks, how many drinks of wine, beer, or other alcoholic beverages did you have?: no alcohol at all Do you exercise for about 20 minutes 3 or more times a week?: yes, some of the time Have you been given information to help with the following?: yes: Keeping track of your medications? and no: Hazards in your house that might hurt you? How often do you have trouble taking medicines the way you have been told to take them?: I always take medicine as prescribed How confident are you that you can control & manage most of your health problems?: very confident What is your race?: Black or Mini Mental State Exam (MMSE) Orientation What is the (year) (season) (date) (day) (month)?: year, season, date and day Where are we (state) (county) (town or city) (hospital) (floor)?: state, county and town or city Attention & Calculation (CHOOSE ONE) Ask pt to begin with 100 & count backward by 7. Stop after 5 repeats. If pt cannot ask them to spell the word WORLD backward.: 93, 86, 79 and 72 Score Score: 11 Activity of Daily Living Bathing - sponge bath, tub bath or shower: receives no assistance (gets in/out by self, if usual bathing means Dressing - getting clothes from closets & drawers, including inner/outer garments & fasteners.: gets clothes & gets completely dressed without help Toileting - going to the 'toilet room' for urine/bowel elimination & cleaning self/arranging clothes: goes to toilet room, cleans self, arranges clothes without help Transfer: moves in & out of bed and chair without help (may use support object) Continence: controls urination/bowel movements completely by self Feeding: feeds self without help Total Score: 0 Using telephone: independent Traveling: independent Shopping: independent Preparing meals: independent Housework: independent Taking medicine: independent Managing money: independent PHQ-9 Over the last 2 weeks, how often have you been bothered by any of the following problems? 1. Little interest or pleasure in doing things: not at all 2. Feeling down, depressed, or hopeless: not at all 3. Trouble falling or staying asleep, or sleeping too much: not at all 4. Feeling tired or having little energy: not at all 5. Poor appetite or overeating: not at all 6. Feeling bad about yourself - or that you are a failure or have let yourself or your family down: not at all 7. Trouble concentrating on things, such as reading the newspaper or watching television: not at all 8. Moving or speaking so slowly that other people could have noticed. Or the opposite - being so fidgety or restless that you have been moving around a lot more than usual: not at all 9. Thoughts that you would be better off or of hurting yourself in some way: not at all Total score: 0 Depression Screening Interpretation: Negative Depression Screening Done: Yes Source: Developed by Drs. Javier Marmolejo, Miya Abernathy, Blayne Price and colleagues, with an educational lindsay from [employer]. Thrive Questionnaire Date Thrive assessed: 12/16/23 I am a: Patient What is your living situation today?: I have a steady place to live Within the past 12 months, did the food you bought not last and you didn't have the money to get more?: Never true Within the past 12 months, did you worry whether your food would run out before you got money to buy more?: Never true Do you have trouble paying for medicines?: No Do you have trouble getting transportation to medical appointments?: No Do you have trouble paying your heating and electricity bill?: No Do you have trouble taking care of your child, family member or friend?: No Do you have trouble with day-to-day activities such as bathing, preparing meals, shopping, managing finances, etc.?: No Are you currently unemployed and looking for a job?: No Are you interested in more education?: No Currently or been in a relationship where the following occur: No concerns reported THRIVE Score: 0 JEROME-7 AMB Questionnaire JEROME-7 Date JEROME - 7 assessed: 04/08/23 Feeling nervous, anxious, or on edge: 0 = Not at all Not being able to stop or control worryin = Not at all Worrying too much about different things: 0 = Not at all Trouble relaxin = Not at all Being so restless that it is hard to sit still: 0 = Not at all Becoming easily annoyed or irritable: 0 = Not at all Feeling afraid as if something awful might happen: 0 = Not at all Total JEROME-7 score (0-4 normal; 5-9 mild; 10-14 moderate; 15-21 severe): 0 Source: Developed by Drs. Javier Marmolejo, Miya Abernathy, Blayne Price and colleagues, with an educational lindsay from [employer]. JEROME-7 Assessment Billing JEROME-7 Assessment Tool: pt declined-do not bill Physical Exam Vital Signs: Last Vital Signs Pulse 82 12/16/23 13:43 BP 110/70 12/16/23 13:43 Pulse Ox 100 12/16/23 13:43 Oxygen Delivery Method Room Air 12/16/23 13:43 BMI result Body Mass Index 22.0 Balance: Normal Romberg: Negative Tandem Walk: Able to Walk and Turn: Able to Rise from sit to stand: Able to Hearing Whisper test: Pass [place] of care and screening document given to the patient. Const General: cooperative and healthy appearing Nutritional Appearance: well nourished Orientation/consciousness: patient oriented x3 Limitations: no limitations HEENT Other: Right and left eyes: Conjunctival congestion. Corneas clear. Anterior chambers clear. Head: Yes normal to inspection Eyes General: appearance normal, both eyes and all related structures Neck Neck: Yes normal visual inspection Chest Chest palpation & inspection: normal palpation of entire chest wall Resp Effort & Inspection: normal respiratory effort Neuro General: patient oriented x3 Results AMB Hemoglobin A1c AMB Hemoglobin A1c 8.2 % Last Edit by PATRICIA Silva on 12/16/23 13:56 Results Reviewed Results Reviewed: Laboratory Last Values Hgb A1c (Clinic) 8.2 % (4.0-6.0) H 12/16/23 13:35 Assessment & Plan Assessment & Plan (1) Benign essential HTN: Code(s): I10 - Essential (primary) hypertension Plan: Blood pressure is in range. Continue current medications. (2) Hypercholesterolemia with hypertriglyceridemia: Code(s): E78.2 - Mixed hyperlipidemia Plan: Cholesterol is in range. Continue current medications. (3) Type 2 diabetes mellitus with hyperglycemia: Code(s): E11.65 - Type 2 diabetes mellitus with hyperglycemia Qualifiers: Diabetes mellitus technician terminal and repeater insulin use: without technician terminal and repeater use Qualified Code(s): E11.65 - Type 2 diabetes mellitus with hyperglycemia Plan: A1c has improved from 8.8-8.1. I encourage patient to take the metformin, glipizide and Jardiance. Our records indicate she has had 4 lb of weight loss. blood work has been ordered. Orders: Orders AMB Hemoglobin A1c Today E11.65 - Type 2 diabetes mellitus with hyperglycemia Basic Metabolic Panel Today E11.65 - Type 2 diabetes mellitus with hyperglycemia, E78.2 - Mixed hyperlipidemia, I10 - Essential (primary) hypertension Microalbumin, Random (w Creat) Today E11.65 - Type 2 diabetes mellitus with hyperglycemia, E78.2 - Mixed hyperlipidemia, I10 - Essential (primary) hypertension C Reactive Protein Today E11.65 - Type 2 diabetes mellitus with hyperglycemia, E78.2 - Mixed hyperlipidemia Complete Blood Count no Diff Today E11.65 - Type 2 diabetes mellitus with hyperglycemia, E78.2 - Mixed hyperlipidemia, I10 - Essential (primary) hypertension Liver Panel Today E11.65 - Type 2 diabetes mellitus with hyperglycemia, E78.2 - Mixed hyperlipidemia, I10 - Essential (primary) hypertension Lipid Panel Today E11.65 - Type 2 diabetes mellitus with hyperglycemia, E78.2 - Mixed hyperlipidemia, I10 - Essential (primary) hypertension Thyroid Stimulating Hormone Today E11.65 - Type 2 diabetes mellitus with hyperglycemia, E78.2 - Mixed hyperlipidemia, I10 - Essential (primary) hypertension UA and rflx microscopic Today E11.65 - Type 2 diabetes mellitus with hyperglycemia, E78.2 - Mixed hyperlipidemia, I10 - Essential (primary) hypertension Erythrocyte Sedimentation Rate Today E11.65 - Type 2 diabetes mellitus with hyperglycemia, E78.2 - Mixed hyperlipidemia Quality Reporting (2019) Depression/Bipolar (159/160/161/177) PHQ-9: Total score: 0 Coding Level of Care Code Medicare Subsequent (G0439) Est Pt Level 4 (19278) Diagnoses Benign essential HTN I10 Hypercholesterolemia with hypertriglyceridemia E78.2 Type 2 diabetes mellitus with hyperglycemia, without long-term current use of insulin E11.65 Diabetes mellitus technician terminal and repeater insulin use: without mcc use Advance Care Planning Advance Care Planning discussion: Exists, not on file Date of discussion: 12/16/23 Who was present: Patient Forms completed: Health Care Proxy and MOLST Actual minutes spent: 5
[2023-12-16 13:43] VITALS: BP 110/70; PULSE 82; O2SAT 100; BMI 22.0
== END 2023-12-16 14:12 | disposition home or self-care (01) ==
PROVIDERS: PCP Internal Medicine; Visit Provider Internal Medicine
DX: Z00.00 Encounter for general adult medical examination without abnormal findings (principal); I10 Essential (primary) hypertension; E78.2 Mixed hyperlipidemia; E11.65 Type 2 diabetes mellitus with hyperglycemia
CPT/HCPCS: 83036; G0439

== ENCOUNTER 2023-12-17 12:12 | Outpatient (REF) | payer MEDICARE, MEDICAID, SELFPAY ==
[2023-12-17 12:39] LABS: Hematocrit 35.8 % (37.0-47.0); Hemoglobin 12.5 g/dl (12.0-16.0); Mean Corpuscular HGB Conc 34.9 g/dl (31.0-35.0); Mean Corpuscular Hemoglobin 30.9 pg (27.0-33.0); Mean Corpuscular Volume 88.6 fL (80.0-98.0); Mean Platelet Volume 10.1 fL (9.4-12.3); Platelet Count 233 X10*3/uL (160-400); Red Blood Count 4.04 X10*6/uL (4.20-5.50); Red Cell Distribution Width 13.6 % (11.0-16.0); White Blood Count 5.7 X10*3/uL (4.8-10.8)
[2023-12-17 13:16] LABS: Alanine Aminotransferase 12 U/L (0-31); Alkaline Phosphatase 60 U/L (39-117); Anion Gap 14 (12-20); Aspartate Amino Transferase 12 U/L (5-31); Bilirubin Direct 0.1 mg/dL (0.0-0.5); Bilirubin Total 0.4 mg/dL (0.0-1.0); Blood Urea Nitrogen 19 mg/dL (9-16); C Reactive Protein < 0.10 mg/dL (< or = 0.50); Calcium 9.7 mg/dL (8.4-10.2); Carbon Dioxide 27 mmol/L (22-29); Chloride 106 mmol/L (96-108); Cholesterol 162 mg/dL (<200); Estimated Glomerular Filt Rate 57; Glucose Random 191 mg/dL (60-115); HDL Cholesterol 74 mg/dL (>40); LDL Cholesterol Calculated 71 mg/dL (<100); Sodium 143 mmol/L (135-145); Triglycerides 86 mg/dL (<150)
[2023-12-17 13:29] LABS: Erythrocyte Sedimentation Rate 25 MM/HR (0-20)
[2023-12-17 13:30] LABS: Thyroid Stimulating Hormone 0.77 uIU/mL (0.32-4.0)
== END 2023-12-17 12:13 | disposition home or self-care (01) ==
LOC: HO.LAB 12:12
PROVIDERS: PCP Internal Medicine; Visit Provider Internal Medicine
DX: E11.65 Type 2 diabetes mellitus with hyperglycemia (principal); E78.2 Mixed hyperlipidemia; I10 Essential (primary) hypertension
CPT/HCPCS: 36415; 80048; 80061; 80076; 84443; 85027; 85652; 86140

== ENCOUNTER 2023-12-22 13:16 | Outpatient (REF) | payer MEDICARE, MEDICAID, SELFPAY ==
[2023-12-22 13:36] LABS: Appearance Urine Clear; Color Urine Yellow; Glucose Urine UA Negative (Negative); Leukocyte Esterase Urine Negative (Negative); Nitrite Urine Negative (Negative); PH 5.5 (5.0-9.0); Specific Gravity - Urine 1.015 (1.005-1.025); Urine Blood Negative (Negative); Urine Ketones Negative (Negative); Urine Protein Negative (Neg-Trace)
[2023-12-22 14:34] LABS: Microalbum/Creatinine Ratio Ur 13.9 ug/mg cr (<30)
== END 2023-12-22 13:17 | disposition home or self-care (01) ==
LOC: HO.LNP 13:16
PROVIDERS: Visit Provider Internal Medicine
DX: E11.65 Type 2 diabetes mellitus with hyperglycemia (principal); E78.2 Mixed hyperlipidemia; I10 Essential (primary) hypertension
CPT/HCPCS: 81003; 82043; 82570

== ENCOUNTER 2023-12-23 10:44 | Outpatient (AMB) | payer MEDICARE, MEDICAID, SELFPAY ==
--- NOTE | 2023-12-23 10:47 | MHC.OFFVIS ---
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 No complaints. Last Pap/HPV was many years ago, no history of abnormal Pap smears the patient is status post hysterectomy for benign myomas and heavy menstrual cycles 30 years ago Last Mammogram was in 10/26 at the [facility] according to the patient no reports available Last Colonoscopy was in April of 2023 according to patient was negative and recommendation was to repeat in 5 years, no reports available No recent DEXA scan [facility] Medical History Adult general medical exam Screening for diabetes mellitus Hyperlipidemia Type 2 diabetes mellitus with hyperglycemia Hypercholesterolemia with hypertriglyceridemia Benign essential HTN Surgical History History of colonoscopy (~08/20/17) History of partial hysterectomy History of eye surgery Family History Father No problems noted. Mother No problems noted. Sister No problems noted. Social History Household Members: Family Housing: House Alcohol intake: never Patient Tobacco Use Status: Never used Tobacco e-Cigarette/Vaping Use: Never Used Second Hand Smoke Exposure: No service: No Current occupational status: retired Cognitive needs: No Hearing needs: No Vision needs: No Female Reproductive History Menstrual Menopause type: natural Total pregnancies: 0 Review of Systems Const All systems reviewed & are unremarkable except as noted in HPI and below Card Reports as per HPI and Reports no additional complaints Resp Reports as per HPI and Reports no additional complaints GI Reports as per HPI and Reports no additional complaints Reports as per HPI Physical Exam Vital Signs: Last Vital Signs BP 118/70 12/23/23 11:12 BMI result Body Mass Index 21.9 Const General: cooperative, healthy appearing and comfortable General: Yes bladder normal to palpation External Female Exam: No lesion Speculum Exam - Vagina: normal appearance of the vagina, normal vaginal discharge and not erythematous Speculum Exam - Cervix: Cervix absent Bimanual exam- vagina & uterus: bladder normal to palpation and uterus absent Bimanual Exam- Adnexa, other: Other (No masses detected) Assessment & Plan Assessment & Plan (1) Well woman exam: Code(s): Z01.419 - Encounter for gynecological examination (general) (routine) without abnormal findings Category: Medical Plan: Co testing not indicated since the patient 's age is above 65 with no history of abnormal Pap smears last 25 years and status post hysterectomy for benign disease. Counseled the patient about the recommended dietary allowance of 1200 mg of Calcium & 800 IU of vitamin D. Instructions given the patient to schedule next screening Mammogram in 10/27. Will order DEXA scan . The patient was instructed to perform monthly self-breast exams and to schedule a 2 week DEXA scan follow-up appointment and an annual exam in a year; All questions answered and the patient verbalized understanding. Orders: Orders XR DEXA axial skeleton Today Z78.0 - Asymptomatic menopausal state Coding Level of Care Code New Pt Prev Care >65yr (03412) Diagnoses Well woman exam Z01.419
[2023-12-23 11:12] VITALS: BP 118/70; BMI 21.9
== END 2023-12-23 11:50 | disposition home or self-care (01) ==
LOC: HO.HWS 10:44
PROVIDERS: PCP Internal Medicine; Visit Provider Obstetrics & Gynecology
DX: Z01.419 Encounter for gynecological examination (general) (routine) without abnormal findings (principal)
CPT/HCPCS: 99387; 99397

== ENCOUNTER → 2023-12-23 10:44 | Outpatient (BNVA) | payer MEDICARE, MEDICAID, SELFPAY | PROVIDERS: PCP Internal Medicine; Visit Provider Obstetrics & Gynecology | DX: Z01.419 Encounter for gynecological examination (general) (routine) without abnormal findings (principal) | CPT/HCPCS: 99387 ==

== ENCOUNTER 2024-01-20 13:27 | Emergency (ER) | payer MEDICARE, MEDICAID, SELFPAY ==
--- NOTE | 2024-01-20 14:16 | ED_ITS ---
HPI - Eye Problem General Chief complaint: Eye Problems Stated complaint: eye problem Time Seen by Provider: 01/20/24 16:36 Source: patient Mode of arrival: ambulatory Limitations: no limitations History of Present Illness ED Provider: trisha HPI Narrative: Patient's history of glaucoma has chronic inflamed both eyes left more than right for last 2 months seen concrete smoother prescribed Pataday which is not working still feeling red specially when she wakes up in the morning no injury no loss of vision patient has been using brimonidine eyedrops for glaucoma Related Data Home Medications ?Medication ?Instructions ?Recorded ?Confirmed brimonidine 0.2 % eye drops 1 drp ophthalmic (eye) 12/16/23 Previous Rx's ?Medication ?Instructions ?Recorded empagliflozin 25 mg tablet 25 mg PO DAILY #90 tabs 04/12/23 (Jardiance) glipizide 5 mg tablet 10 mg (2 x 5 mg) PO BID #60 tabs 08/24/23 metformin 1,000 mg tablet 1,000 mg PO BID #180 tabs 08/24/23 metoprolol succinate 50 mg 50 mg PO BID #180 tabs 09/16/23 tablet,extended release 24 hr hydrochlorothiazide 25 mg tablet 25 mg PO QAM #90 tabs 11/20/23 simvastatin 10 mg tablet 10 mg PO BEDTIME #90 tabs 11/20/23 olopatadine 0.2 % eye drops 1 drp ophthalmic (eye) BEDTIME 01/04/24 (Pataday Once Daily Relief) #2.5 mL latanoprost 0.005 % eye drops 1 drp ophthalmic (eye) QPM #2.5 mL 01/20/24 olopatadine 0.2 % eye drops 1 drp ophthalmic (eye) BEDTIME 01/20/24 (Pataday Once Daily Relief) #2.5 mL tobramycin 0.3 % eye drops 1 drp ophthalmic (eye) Q4H #5 mL 01/20/24 Allergies Allergy/AdvReac Type Severity Reaction Status Date / Time No Known Allergies Allergy Verified 01/20/24 14:21 Review of Systems Review of Systems: Yes all other systems are reviewed and are negative PMFSH Past Medical History Medical History Adult general medical exam Screening for diabetes mellitus Hyperlipidemia Type 2 diabetes mellitus with hyperglycemia Hypercholesterolemia with hypertriglyceridemia Benign essential HTN Surgical History History of colonoscopy (~08/20/17) History of partial hysterectomy History of eye surgery Family History Family History Father No problems noted. Mother No problems noted. Sister No problems noted. Social History Social History Household Members: Family Housing: House Alcohol intake: never Patient Tobacco Use Status: Never used Tobacco e-Cigarette/Vaping Use: Never Used Second Hand Smoke Exposure: No Advance Directives: Yes Advance Directives Information Provided: No Advance Directives on File: No Do you have a plan to hurt others: No Plan service: No Current occupational status: retired Cognitive needs: No Hearing needs: No Vision needs: No Physical Exam Vital Signs: Vital Signs: Last Vital Signs Temp 98.7 F 01/20/24 17:48 Pulse 96 01/20/24 17:48 Resp 18 01/20/24 17:48 BP 150/94 H 01/20/24 17:48 Pulse Ox 100 01/20/24 17:48 O2 Del Method Room Air 01/20/24 17:48 BMI result Body Mass Index 29.0 Appearance: Alert. Oriented X3. No acute distress. EYE: IOP right eye 35 left eye 26 inflamed palpabral conjunctival , no exudate ENT: Pharynx normal. Oral Mucosa moist Neck: Normal inspection. Neck supple. CVS: Normal heart rate and rhythm. Pulses normal. Respiratory: No respiratory distress. Equal air entry bilateral, no wheezing/rales/rhonchi Skin: Skin warm and dry. Normal skin color. Normal skin turgor. Extremities: No lower extremity edema. Neuro: Oriented X 3. Course Course Course Narrative: This is a Rapid Medical Examination (RME) performed by Onel Wise PA-C in triage. Full HPI, ROS, assessment and treatment plan per primary provider in the Main ED. 68 yo female with history of hypertensive retinopathy, glaucoma, hemiretinal vein occlusion 2020, glaucoma presents to the ER for evaluation of painless bilateral eye redness for the last 1.5 - 2 months. no vision changes. no discharge or crusting. she reports itching and feeling like there are leaves in there. redness is worse every morning. she is on drops for the eyes and is supposed to be following up with her eye doctors soon. primary doctor told to her to come to the ER for evaluation. [place] [facility] [place]ations Administered Discontinued Medications Generic Name Dose Route Start Last Admin Trade Name Ladan PRN Reason Stop Dose Admin Latanoprost 1 drop 01/20/24 17:12 01/20/24 17:50 Latanoprost 0.005 % Ophth Monica 2.5 Ml Drops EYE-BOTH 01/20/24 17:13 1 drop ONCE ONE Administration Tobramycin Sulfate 2 drop 01/20/24 17:10 01/20/24 17:49 Tobramycin Sulfate 0.3% Monica Op 5 Ml Btl EYE-BOTH 01/20/24 17:11 2 drop ONCE ONE Administration Medical Decision Making Medical Decision Making [facility] Narrative: Patient with chronic inflammatory conjunctivitis will prescribe tobramycin had IOP pressure high in both eyes already on brimonidine will start patient on latanoprost eyedrops and follow up with concrete smoother as scheduled next week Differential Diagnosis Differential Diagnoses: The differential diagnosis associated with the presentation includes Discharge Plan Discharge Clinical Impression: Bacterial conjunctivitis, Glaucoma Patient Disposition: Home, Self-Care Instructions: Glaucoma (ED), Conjunctivitis (ED) Additional Instructions: Continue your prescribed eyedrops Start using latanoprost eye drops 1 drop in each eye daily Tobramycin eye drops 2 drops every 6 hours Continue olopatadine eyedrops Follow up with your concrete smoother as scheduled Prescriptions: New olopatadine [Pataday Once Daily Relief] 0.2 % drops 1 drp ophthalmic (eye) BEDTIME Qty: 2.5 0RF tobramycin 0.3 % drops 1 drp ophthalmic (eye) Q4H Qty: 5 0RF latanoprost 0.005 % drops 1 drp ophthalmic (eye) QPM Qty: 2.5 0RF No Action Jardiance 25 mg tablet 25 mg PO DAILY Qty: 90 1RF metoprolol succinate 50 mg tablet extended release 24 hr 50 mg PO BID Qty: 180 1RF simvastatin 10 mg tablet 10 mg PO BEDTIME Qty: 90 1RF hydrochlorothiazide 25 mg tablet 25 mg PO QAM Qty: 90 1RF olopatadine [Pataday Once Daily Relief] 0.2 % drops 1 drp ophthalmic (eye) BEDTIME Qty: 2.5 0RF metformin 1,000 mg tablet 1,000 mg PO BID Qty: 180 1RF glipizide 5 mg tablet 10 mg PO BID Qty: 60 0RF brimonidine 0.2 % drops 1 drp ophthalmic (eye) Interventions: ED Discharge Assessment Last Done: 01/20/24 17:48 Discharge Date/Time: 01/20/24 17:54 Print Language: Luxembourger
[2024-01-20 14:17] VITALS: BP 145/83; PULSE 89; RESP 16; TEMP 36.1; O2SAT 99; BMI 29.0
--- NOTE | 2024-01-20 17:28 | PC.NURSE ---
Called pharmacy and spoke to Kathleen about obtaining Latanaprost for the pt. Waiting on pharmacy to bring medicine then pt can be dc.
[2024-01-20 17:48] VITALS: BP 150/94; PULSE 96; RESP 18; TEMP 37.1; O2SAT 100
[2024-01-20] MEDS: Tobramycin Sulfate 0.3% Sol Op 5 ML BTL 2 DROP EYE-BOTH (17:49)
[2024-01-20] MEDS: Latanoprost 0.005 % Ophth Sol 2.5 ML DROPS 1 DROP EYE-BOTH (17:50)
== END 2024-01-20 17:54 | disposition home or self-care (01) ==
PROVIDERS: Emergency Provider Internal Medicine; PCP Internal Medicine
DX: H10.33 Unspecified acute conjunctivitis, bilateral (principal); H57.13 Ocular pain, bilateral; H40.9 Unspecified glaucoma; Z79.899 Other long term (current) drug therapy
CPT/HCPCS: 99282; 99283

== ENCOUNTER 2024-01-26 09:58 | Outpatient (REF) | payer MEDICARE, MEDICAID, SELFPAY ==
--- NOTE | ~2024-01-26 | MM_ITS ---
EXAMINATION: BONE DENSITOMETRY CLINICAL INDICATION: Menopause. COMPARISON: This is the patient's baseline examination. TECHNIQUE: Using a Hello[employer]ax DXA System (software version: 13.1) manufactured by [employer], dual-energy x-ray absorptiometry was performed of the lumbar spine and left hip. The images are of good technical quality. Summary results are attached. FINDINGS: LEFT FEMUR, NECK: BMD 0.802 g/cm2, Z-score -0.8, T-score -1.7, osteopenia. LEFT FEMUR, TOTAL: BMD 0.793 g/cm2, Z-score -1.0, T-score -1.7, osteopenia. AP SPINE L1-L4: BMD 1.153 g/cm2, Z-score 1.0, T-score -0.2, normal. IDENTIFIED RISK FACTORS: Early menopause, hysterectomy, right oophorectomy, secondary osteoporosis, thiazide. HISTORY OF FRACTURE: None listed. MEDICATIONS: None listed. MM/XR DEXA axial skeleton IMPRESSION: 1. DIAGNOSIS: Osteopenia based on the lowest T-score value of -1.7 in the femur neck and total femur applying World Health Organization criteria. 2. 10-YEAR FRACTURE RISK PREDICTION, FRAX: Major osteoporotic fracture (clinical spine, forearm, hip or shoulder) 4.4%. Hip fracture 0.8%. 3. Treatment Recommendations: NOF guidelines recommend consideration for treatment in postmenopausal women and men age 50 and older presenting with the following: -A hip or vertebral (clinical or morphometric) fracture. -T-score less than or equal to -2.5 at the femoral neck or spine after appropriate evaluation to exclude secondary causes. -Low bone mass at the hip or spine and a 10-year fracture probability by FRAX of greater than or equal to 3% for hip fracture or greater than or equal to 20% for major osteoporotic fracture based on the [place] adapted WHO algorithm. 4. Other Recommendations: All treatment decisions require clinical judgment and consideration of individual patient factors, including patient preferences, comorbidities, previous drug use, risk factors not captured in the FRAX model (e.g. frailty, falls, vitamin D deficiency, increased bone turnover, interval significant decline in bone density) and possible under or overestimation of fracture risk by FRAX. Additional medical evaluation for secondary cause of low bone mineral density may be appropriate. FUTURE SCAN RECOMMENDATION: People with diagnosed cases of osteoporosis or at high risk for fracture should have regular bone mineral density tests. For patients eligible for Medicare, routine testing is allowed once every 2 years. The testing frequency can be increased to one year for patients who have rapidly progressing disease, those who are receiving or discontinuing medical therapy to restore bone mass, or have additional risk factors. Electronically signed by: Mikal Napier MD 01/27/2024 12:34 PM EDT
== END 2024-01-26 09:59 | disposition home or self-care (01) ==
LOC: HO.MAMMO 09:58
PROVIDERS: PCP Internal Medicine; Visit Provider Obstetrics & Gynecology
DX: Z13.820 Encounter for screening for osteoporosis (principal); Z78.0 Asymptomatic menopausal state
CPT/HCPCS: 77080

== ENCOUNTER 2024-03-23 08:00 | Outpatient (AMB) | payer MEDICARE, MEDICAID, SELFPAY ==
--- NOTE | 2024-03-23 08:03 | A.OFFPC_ITS ---
Vital Signs 03/23/24 08:05 Height 5 ft 6 in Weight 123 lb 8 oz BMI 19.9 BP 120/72 Blood Pressure Location Lt brachial Position Sitting Pulse 98 Pulse Source Pulse Oximeter Pulse Oximetry (%) 97 Oxygen Delivery Method Room Air Intake Visit Reasons: 3 Month F/U Intake Note: Patient is here to follow up on DM, HLD, HTN. Complaint of red eyes Gaming Host Required: No Sewing Department Supervisor: Not Required per policy Accompanied by: Self / Same As Patient Allergies No Known Allergies Allergy (Verified 03/23/24 08:28) Medication List - Last Reconciled 03/23/24 by Jeremy Yip MD brimonidine 0.2% 1 drp ophthalmic (eye) empagliflozin (Jardiance) 25 mg PO DAILY glipizide 10 mg (2 x 5 mg) PO BID hydrochlorothiazide 25 mg PO QAM latanoprost 0.005% 1 drp ophthalmic (eye) QPM metformin 1,000 mg PO BID metoprolol succinate ER 50 mg PO BID olopatadine 0.2% (Pataday Once Daily Relief) 1 drp ophthalmic (eye) BEDTIME olopatadine 0.2% (Pataday Once Daily Relief) 1 drp ophthalmic (eye) BEDTIME simvastatin 10 mg PO BEDTIME tobramycin 0.3% 1 drp ophthalmic (eye) Q4H Tobacco use date assessed: 03/23/24 Fall risk assessment: No Falls in past year Last assessed Fall Risk: 03/23/24 Dental Screening Dental Screen Date: 04/08/23 [facility] Medical History (Updated 03/23/24 @ 08:29 by Jeremy Yip MD) Allergic conjunctivitis Adult general medical exam Screening for diabetes mellitus Hyperlipidemia Type 2 diabetes mellitus with hyperglycemia Hypercholesterolemia with hypertriglyceridemia Benign essential HTN Surgical History History of colonoscopy (~08/20/17) History of partial hysterectomy History of eye surgery Family History Father No problems noted. Mother No problems noted. Sister No problems noted. Social History Household Members: Family Housing: House Alcohol intake: never Patient Tobacco Use Status: Never used Tobacco e-Cigarette/Vaping Use: Never Used Second Hand Smoke Exposure: No service: No Current occupational status: retired Cognitive needs: No Hearing needs: No Vision needs: No Questionnaire Thrive Questionnaire Date Thrive assessed: 12/16/23 JEROME-7 AMB Questionnaire JEROME-7 Date JEROME - 7 assessed: 04/08/23 Source: Developed by Drs. Javier Marmolejo, Miya Abernathy, Blayne Price and colleagues, with an educational lindsay from [employer]. Physical exam (Primary Care) Vital Signs: Last Vital Signs Pulse 98 03/23/24 08:05 BP 120/72 03/23/24 08:05 Pulse Ox 97 03/23/24 08:05 Oxygen Delivery Method Room Air 03/23/24 08:05 BMI result Body Mass Index 19.9 Tobacco/Smoking Status: Tobacco use Status Tobacco use date assessed 03/23/24 03/23/24 08:10 Patient Tobacco Use Status Never used Tobacco 03/23/24 08:10 e-Cigarette/Vaping Use Never Used 03/23/24 08:10 Thrive Assessment: Date of Thrive Assessment Date Thrive assessed 12/16/23 03/23/24 08:10 Office Procedures Flu Questionnaire Does the patient have a severe egg allergy?: No Does the patient have severe life threatening allergies?: No Does the patient have a fever or illness today?: No Has the patient ever had Guillain-Betterton Syndrome?: No Has the patient ever had any past reaction to a flu shot?: No Results AMB Hemoglobin A1c AMB Hemoglobin A1c 8.1 % Last Edit by PATRICIA Silva on 03/23/24 08:16 Immunizations Fluarix Triv [id number] (PF) 45 mcg (15 mcg x 3)/0.5 mL IM syringe Performing Provider: Jeremy Yip MD [facility] [place] [facility] Administered by: Julissa Mann RN on 03/23/24 08:27 Dose Route Admin Location Dispensed Lot Number Expiration Date [facility] Sealing [employer] Canceling Machine Operator 0.5 mL IM Right Deltoid 0.5 mL [id number] 10/02/24 [id number] [employer] VIS Given Date VIS Provided VIS Publication Date 03/23/24 Single Vaccine 20 Eligibility Eligibility Date Funding Source Not [facility] Eligible 03/23/24 Private Results Reviewed Results Reviewed: Laboratory Last Values Hgb A1c (Clinic) 8.1 % (4.0-6.0) H 03/23/24 08:03 Coding Level of Care Code Est Pt Level 4 (23664) Complex EM visit Add On G2211 Diagnoses Benign essential HTN I10 Hypercholesterolemia with hypertriglyceridemia E78.2 Type 2 diabetes mellitus with hyperglycemia, without long-term current use of insulin E11.65 Diabetes mellitus retirement insulin use: without exterminator termite use Allergic conjunctivitis H10.10 Assessment & Plan Assessment & Plan (1) Benign essential HTN: Code(s): I10 - Essential (primary) hypertension Category: Medical Plan: BP is in range. Continue medications at same dosage. (2) Hypercholesterolemia with hypertriglyceridemia: Code(s): E78.2 - Mixed hyperlipidemia Category: Medical Plan: LDL in range. Continue meds at same dosage. (3) Type 2 diabetes mellitus with hyperglycemia: Code(s): E11.65 - Type 2 diabetes mellitus with hyperglycemia Category: Medical Qualifiers: Diabetes mellitus exterminator termite insulin use: without retirement use Qualified Code(s): E11.65 - Type 2 diabetes mellitus with hyperglycemia Plan: A1c is 8.1. Patient unwilling to consider insulin. (4) Allergic conjunctivitis: Code(s): H10.10 - Acute atopic conjunctivitis, unspecified eye Category: Medical Plan: Continue current regimen of olopatadine. Plan History of Present Illness The patient is a 68-year-old female presenting with diabetes management concerns. She reported good adherence to her medication regimen and noted that her blood glucose levels remain well-controlled, with occasional slight elevations in the morning. Despite this, she has experienced unintentional weight loss, specifically a reduction to approximately 123-125 pounds, raising her concern given her previous weight of 127 pounds a few tests earlier. Concurrently, the patient reported bilateral redness in her eyes persisting over three months. An emergency room evaluation indicated a bacterial presence, which was confirmed by an pin maker with no significant findings beyond potential allergic conjunctivitis. The redness persists, although without discharge, except for some residual crusting attributed possibly to eye drops. Previous interventions include antibiotic and non-antibiotic eye drops. Social History - Reports taking all prescribed medications as directed. - Monitors blood glucose levels regularly, adhering to diabetes management guidelines. - Expresses concern over weight management due to recent unintentional weight loss. Review of Systems - General: Denies sleep disturbances, appetite changes noted with concerns about weight loss. - Eyes: Reports redness but denies discharge other than sleep crusting. Physical Exam General: Appearance normal, redness in both eyes, likely due to allergies Nutritional Appearance: Well nourished, but patient reports weight loss Orientation/consciousness: Patient oriented x3 Limitations: No limitations Head: Normal to inspection Neck: Normal visual inspection Chest: Normal palpation of entire chest wall Respiratory: Normal respiratory effort Neurology: Patient oriented x3 Results - Labs: Blood work from December showed normal results. - Tests: Reports that mammogram was done this year. Plan - Conduct diabetes management follow-up and continue current medication regimen. Reinforce adherence to diet and exercise recommendations. - For weight loss, assess caloric intake and consider dietary supplementation to ensure adequate nutrition. - Prescribe non-antibiotic eye drops to address allergic conjunctivitis symptoms, with instructions to use for one month. - Note that COVID-19 vaccination can be administered; recommend visiting a pharmacy for this service. - Administer influenza vaccination as discussed during the visit. Patient was informed and verbally consented to the use of an ambient scribe for clinic note documentation during this visit. Discussion Notes I discussed with the patient that her diabetes management is effective, with morning blood glucose elevations being minimal and not a major concern. she is still reluctant to start insulin. I reassured her that the unintentional weight loss does not appear to be associated with any underlying sinister pathology. Regarding her ocular symptoms, I indicated that allergic conjunctivitis is a probable diagnosis given the lack of bacterial infection and proposed non- antibiotic eye drops might alleviate the redness, emphasizing that bacterial infections typically resolve more rapidly. We discussed her upcoming influenza vaccination and the COVID-19 vaccine process, explaining the need to visit a pharmacy for the latter. Our follow-up is scheduled in three months to reassess her condition. Patient Instructions - Continue diabetes medications as prescribed. - Monitor and record daily blood glucose levels. - Use prescribed non-antibiotic eye drops daily as directed. - Increase dietary calorie intake to stabilize weight. - Receive influenza vaccination today and plan for COVID-19 vaccination at a pharmacy. - Return for a follow-up appointment in three months to reassess condition. - Contact me if symptoms worsen or there are any new concerns. Orders: Orders AMB Hemoglobin A1c Today E11.65 - Type 2 diabetes mellitus with hyperglycemia Influenza [id number] Immunization Today Z23 - Encounter for immunization
[2024-03-23 08:05] VITALS: BP 120/72; PULSE 98; O2SAT 97; BMI 19.9
== END 2024-03-23 08:31 | disposition home or self-care (01) ==
PROVIDERS: PCP Internal Medicine; Visit Provider Internal Medicine
DX: I10 Essential (primary) hypertension (principal); E78.2 Mixed hyperlipidemia; E11.65 Type 2 diabetes mellitus with hyperglycemia; H10.10 Acute atopic conjunctivitis, unspecified eye; Z23 Encounter for immunization

== ENCOUNTER → 2024-03-23 08:00 | Outpatient (BNVA) | payer MEDICARE, MEDICAID, SELFPAY | PROVIDERS: PCP Internal Medicine; Visit Provider Internal Medicine | DX: Z23 Encounter for immunization (principal); I10 Essential (primary) hypertension; E78.2 Mixed hyperlipidemia; E11.65 Type 2 diabetes mellitus with hyperglycemia; H10.10 Acute atopic conjunctivitis, unspecified eye | CPT/HCPCS: 83036; 90471; 90656; 99212 ==

== ENCOUNTER 2024-05-11 11:37 | Outpatient (REF) | payer MEDICARE, MEDICAID, SELFPAY ==
--- OUTSIDE RECORDS SUMMARY | 2024-05-11 11:48 | XMS_ITS | Clinical Summary ---
Author Organization [facility] ity Address [address] [place] [address] Care Team Providers Care Can Washer Name Role Phone Ale Ledezma Primary Care Provider [phone] Social History Tobacco Use Types Packs/Day Years Used Date Smoking Tobacco: Never Assessed Sex and Gender Information Value Date Recorded Sex Assigned at Not on file Gender Identity Not on file Sexual Orientation Not on file Plan of Treatment Health Maintenance Due Date Last Done Comments Breast Cancer Screening 1955 DTaP,Tdap,and Td Vaccines (1 - Tdap) 1972 Zoster Vaccines (1 of 2) 08/10/2003 Pneumococcal Vaccine: 65+ Ye ars (1 of 1 - PCV) 2018 Colorectal Cancer Screening: Colonoscopy 03/04/2022 Depression Screening 03/04/2022 Falls Risk Assessment 03/04/2022 Hepatitis C Screening 03/04/2022 Osteoporosis Screening (Bone Density Screening) 03/04/2022 Social Influencers of Health Screening 03/04/2022 COVID-19 Vaccine ( - 2023-2 5 season) 2023 Influenza Vaccine (#1) 2023 02/08/2019 RSV Immunization Patients 60 + Years Old (1 - 1-dose 75+ series) 2028 HIB Vaccines Aged Out No longer eligi ble based on patient's age to complete this topic HPV Vaccines Aged Out No longer eligi ble based on patient's age to complete this topic Hepatitis A Vaccines Aged Out No long er eligible based on patient's age to complete this topic Hepatitis B Vaccines Aged Out No long er eligible based on patient's age to complete this topic IPV Vaccines Aged Out No longer eligi ble based on patient's age to complete this topic MMR Vaccines Aged Out No longer eligi ble based on patient's age to complete this topic Meningococcal ACWY Vaccine Aged Out N o longer eligible based on patient's age to complete this topic RSV Immunization Patients Un sabrina 20 months Aged Out No longer eligible b ased on patient's age to complete this topic Varicella Vaccines Aged Out No longer eligible based on patient's age to complete this topic Care Teams Can Washer Relationship Specialty Start Date End Date Ale Ledezma [address] [place] [address] Dr Qian MA PCP - General Internal Medicine 04/13/11
[2024-05-11 12:06] LABS: MANUAL DIFF FLAG NO
[2024-05-11 12:44] LABS: Basophils Percent Auto 0.5 % (0-2); Eosinophils Percent Auto 0.3 % (0-4); Hematocrit 41.2 % (37.0-47.0); Hemoglobin 14.6 g/dl (12.0-16.0); Lymphocytes Percent Auto 31.7 % (20-40); Mean Corpuscular HGB Conc 35.4 g/dl (31.0-35.0); Mean Corpuscular Hemoglobin 31.1 pg (27.0-33.0); Mean Corpuscular Volume 87.8 fL (80.0-98.0); Mean Platelet Volume 9.6 fL (9.4-12.3); Monocytes Absolute Auto 0.4 X10*3/uL (0.1-1.2); Monocytes Percent Auto 6.7 % (2-11); Neutrophils Absolute Auto 3.9 x10*3/uL (2.0-8.3); Neutrophils Percent Auto 60.8 % (45-73); Platelet Count 306 X10*3/uL (160-400); Red Blood Count 4.69 X10*6/uL (4.20-5.50); Red Cell Distribution Width 12.9 % (11.0-16.0); White Blood Count 6.4 X10*3/uL (4.8-10.8)
[2024-05-11 13:04] LABS: C Reactive Protein < 0.10 mg/dL (< or = 0.50); Rheumatoid Factor 74.9 IU/mL (<15.0)
[2024-05-11 13:21] LABS: Erythrocyte Sedimentation Rate 18 MM/HR (0-20)
[2024-05-16 12:43] LABS: Neutrophil Cyto Ab Screen NEGATIVE (NEGATIVE)
[2024-05-16 19:47] LABS: Treponema pallidum Ab FTA ABS Nonreactive (Nonreactive)
[2024-05-16 21:09] LABS: Angiotensin Converting Enzyme 49 U/L (9-67)
[2024-05-17 11:58] LABS: Anti Nuclear Antibody Screen NEGATIVE (NEGATIVE)
== END 2024-05-11 11:38 | disposition home or self-care (01) ==
LOC: HO.LAB 11:37
PROVIDERS: Visit Provider Ophthalmology
DX: H20.9 Unspecified iridocyclitis (principal)
CPT/HCPCS: 36415; 82164; 85025; 85652; 86036; 86038; 86140; 86431; 86780

== ENCOUNTER 2024-05-15 13:35 | Outpatient (REF) | payer MEDICARE, MEDICAID, SELFPAY ==
[2024-05-15 14:26] LABS: Estimated Average Glucose 157 mg/dL; Hemoglobin A1C 199.5682 umol/L; Hemoglobin A1c % 7.1 % (<6.0); Total Hemoglobin (HGBA1C) 3664.2122 umol/L
--- OUTSIDE RECORDS SUMMARY | 2024-05-15 14:47 | XMS_ITS | Clinical Summary ---
Author Organization [facility] ity Address [address] [place] [address] Care Team Providers Care Tawer Name Role Phone Ale Ledezma Primary Care Provider [phone] Social History Tobacco Use Types Packs/Day Years Used Date Smoking Tobacco: Never Assessed Comments Unknown Sex and Gender Information Value Date Recorded Sex Assigned at Not on file Legal Sex Female 1:08 AM EST Gender Identity Not on file Sexual Orientation Not on file Plan of Treatment Health Maintenance Due Date Last Done Comments Breast Cancer Screening 1955 DTaP,Tdap,and Td Vaccines (1 - Tdap) 1960 Pneumococcal Vaccine: 50+ Ye ars (1 of 1 - PCV) 08/10/2003 Zoster Vaccines (1 of 2) 08/10/2003 Colorectal Cancer Screening: Colonoscopy 03/04/2022 Depression Screening [...] patient's age to complete this topic Meningococcal B Vacine Aged Out No lo nger eligible based on patient's age to complete this topic RSV Immunization Patients Un sabrina 20 months Aged Out No longer eligible b ased on patient's age to complete this topic Varicella Vaccines Aged Out No longer eligible based on patient's age to complete this topic Care Teams Tawer Relationship Specialty Start Date End Date Ale Ledezma [address] [place] [address] Dr Qian MA PCP - General Internal Medicine 04/13/11
[2024-05-15 14:57] LABS: Alanine Aminotransferase 15 U/L (0-31); Anion Gap 16 (12-20); Aspartate Amino Transferase 19 U/L (5-31); Blood Urea Nitrogen 22 mg/dL (9-16); Calcium 9.8 mg/dL (8.4-10.2); Carbon Dioxide 28 mmol/L (22-29); Chloride 102 mmol/L (96-108); Estimated Glomerular Filt Rate 49; Glucose Random 171 mg/dL (60-115); Sodium 142 mmol/L (135-145)
[2024-05-15 15:15] LABS: TSH reflex Free T4 0.47 uIU/mL (0.32-4.0)
[2024-05-15 15:19] LABS: Vitamin B12 501 pg/mL (200-900)
== END 2024-05-15 13:36 | disposition home or self-care (01) ==
LOC: HO.LAB 13:35
PROVIDERS: PCP Internal Medicine; Visit Provider Internal Medicine Endocrinology, Diabetes & Metabolism
DX: E11.42 Type 2 diabetes mellitus with diabetic polyneuropathy (principal); E04.2 Nontoxic multinodular goiter
CPT/HCPCS: 36415; 80048; 82607; 83036; 84443; 84450; 84460

== ENCOUNTER 2024-05-26 14:33 | Outpatient (AMB) | payer MEDICARE, MEDICAID, SELFPAY ==
--- NOTE | 2024-05-26 14:36 | MHC.PC.OV ---
Vital Signs 05/26/24 14:42 Height 5 ft 6 in Weight 121 lb 2 oz BMI 19.5 BP 112/76 Blood Pressure Location Lt brachial Position Sitting Pulse 110 H Pulse Source Pulse Oximeter Temp 97.8 F Temp Source Temporal Artery Scan Pulse Oximetry (%) 99 Oxygen Delivery Method Room Air Intake Visit Reasons: f/u LABS Dr Lees General Inspector Required: No Accompanied by: Self / Same As Patient Allergies No Known Allergies Allergy (Verified 05/26/24 16:32) Medication List - Last Reconciled 05/26/24 by Hanh Jacobs PA-C blood sugar diagnostic (FreeStyle Lite Strips) As directed empagliflozin (Jardiance) 25 mg PO DAILY glipizide 10 mg (2 x 5 mg) PO BID hydrochlorothiazide 25 mg PO QAM metformin 1,000 mg PO BID metoprolol succinate ER 50 mg PO BID prednisolone acetate 1% drps ophthalmic (eye) simvastatin 10 mg PO BEDTIME Tobacco use date assessed: 03/23/24 Dental Screening Dental Screen Date: 04/08/23 [facility] Medical History Decreased hearing of left ear Tachycardia Rheumatoid factor positive Allergic conjunctivitis Adult general medical exam Screening for diabetes mellitus Hyperlipidemia Type 2 diabetes mellitus with hyperglycemia Hypercholesterolemia with hypertriglyceridemia Benign essential HTN Surgical History History of colonoscopy (~08/20/17) History of partial hysterectomy History of eye surgery Family History Father No problems noted. Mother No problems noted. Sister No problems noted. Social History Household Members: Family Housing: House Alcohol intake: never Patient Tobacco Use Status: Never used Tobacco e-Cigarette/Vaping Use: Never Used Second Hand Smoke Exposure: No service: No Current occupational status: retired Cognitive needs: No Hearing needs: No Vision needs: No Questionnaire PHQ-9 Over the last 2 weeks, how often have you been bothered by any of the following problems? 1. Little interest or pleasure in doing things: not at all 2. Feeling down, depressed, or hopeless: not at all 3. Trouble falling or staying asleep, or sleeping too much: not at all 4. Feeling tired or having little energy: not at all 5. Poor appetite or overeating: not at all 6. Feeling bad about yourself - or that you are a failure or have let yourself or your family down: not at all 7. Trouble concentrating on things, such as reading the newspaper or watching television: not at all 8. Moving or speaking so slowly that other people could have noticed. Or the opposite - being so fidgety or restless that you have been moving around a lot more than usual: not at all 9. Thoughts that you would be better off or of hurting yourself in some way: not at all Total score: 0 Depression Screening Interpretation: Negative Depression Screening Done: Yes 83183 - PHQ-9 Billing: Yes Source: Developed by Drs. Javier Marmolejo, Miya Abernathy, Blayne Price and colleagues, with an educational lindsay from [employer]. Thrive Questionnaire Date Thrive assessed: 05/26/24 I am a: Patient What is your living situation today?: I have a steady place to live Within the past 12 months, did the food you bought not last and you didn't have the money to get more?: Never true Within the past 12 months, did you worry whether your food would run out before you got money to buy more?: Never true Do you have trouble paying for medicines?: No Do you have trouble getting transportation to medical appointments?: No Do you have trouble paying your heating and electricity bill?: No Do you have trouble taking care of your child, family member or friend?: No Do you have trouble with day-to-day activities such as bathing, preparing meals, shopping, managing finances, etc.?: No Are you currently unemployed and looking for a job?: No Are you interested in more education?: No Please select the resources that you would like help with: None Currently or been in a relationship where the following occur: No concerns reported THRIVE Score: 0 AUDIT C Alcohol Use Questionnaire (AUDIT-C) 1. How often do you have a drink containing alcohol?: Never 3. How often do you have six or more drinks on one occasion?: Never Total Score: 0 Score Reviewed/Action Taken: Yes JEROME-7 AMB Questionnaire JEROME-7 Date JEROME - 7 assessed: 05/26/24 Feeling nervous, anxious, or on edge: 0 = Not at all Not being able to stop or control worryin = Not at all Worrying too much about different things: 0 = Not at all Trouble relaxin = Not at all Being so restless that it is hard to sit still: 0 = Not at all Becoming easily annoyed or irritable: 0 = Not at all Feeling afraid as if something awful might happen: 0 = Not at all Total JEROME-7 score (0-4 normal; 5-9 mild; 10-14 moderate; 15-21 severe): 0 Source: Developed by Drs. Javier Marmolejo, Miya Abernathy, Blayne Price and colleagues, with an educational lindsay from [employer]. JEROME-7 Assessment Billing JEROME-7 Assessment Tool: JEROME-7 Assessment 38686 Physical exam (Primary Care) Vital Signs: Last Vital Signs Temp 97.8 F 05/26/24 14:42 Pulse 110 H 05/26/24 14:42 BP 112/76 05/26/24 14:42 Pulse Ox 99 05/26/24 14:42 Oxygen Delivery Method Room Air 05/26/24 14:42 BMI result Body Mass Index 19.5 Tobacco/Smoking Status: Tobacco use Status Tobacco use date assessed 03/23/24 05/26/24 14:37 Patient Tobacco Use Status Never used Tobacco 05/26/24 14:37 e-Cigarette/Vaping Use Never Used 05/26/24 14:37 PHQ-9: PHQ-9 Score PHQ-9: Total score 0 05/26/24 15:31 Depression Screening Interpretation: Negative Thrive Assessment: Date of Thrive Assessment Date Thrive assessed 05/26/24 05/26/24 14:49 Currently or been in a relationship where the following occur: No concerns reported Office Procedures EKG Details: EKG sinus tachycardia with ventricular rate of 90. No acute ischemic change are noted. Reviewed by Dr. Schmitz [id number], Complete Coding Level of Care Code Est Pt Level 4 (39746) Complex EM visit Add On G2211 Diagnoses Rheumatoid factor positive R76.8 Tachycardia R00.0 Decreased hearing of left ear H91.92 Hyperlipidemia, unspecified hyperlipidemia type E78.5 Hyperlipidemia type: unspecified Type 2 diabetes mellitus with hyperglycemia, without long-term current use of insulin E11.65 Diabetes mellitus senior care insulin use: without senior care use Benign essential HTN I10 Hypercholesterolemia with hypertriglyceridemia E78.2 CPT Codes EKG - CPT: 73415-[id number], Complete ([id number]) Additional Codes JEROME-7 Assessment Billing - JEROME-7 Assessment Tool: JEROME-7 Assessment 69141 ([id number]) PHQ-9 - 67126 - PHQ-9 Billing: Yes ([id number]) Assessment & Plan Assessment & Plan (1) Rheumatoid factor positive: Code(s): R76.8 - Other specified abnormal immunological findings in serum Category: Medical Plan: Patient denies any other complaints related to this. Will refer to Rheumatology. Condition is chronic and stable continue to monitor. (2) Tachycardia: Code(s): R00.0 - Tachycardia, unspecified Category: Medical Plan: Sinus tachycardia with EKG. Dr. Glass reviewed this EKG with myself. No acute ischemic change are noted. Condition is chronic and stable continue to monitor. (3) Decreased hearing of left ear: Code(s): H91.92 - Unspecified hearing loss, left ear Category: Medical Plan: No cerumen impaction on my exam. Will refer to ENT for further evaluation management. Condition is chronic and stable continue to monitor. (4) Hyperlipidemia: Code(s): E78.5 - Hyperlipidemia, unspecified Category: Medical Qualifiers: Hyperlipidemia type: unspecified Qualified Code(s): E78.5 - Hyperlipidemia, unspecified Plan: LDL<70 patient currently on simvastatin 10 mg at bedtime. Condition is chronic and stable continue to monitor. (5) Type 2 diabetes mellitus with hyperglycemia: Code(s): E11.65 - Type 2 diabetes mellitus with hyperglycemia Category: Medical Qualifiers: Diabetes mellitus senior care insulin use: without intermodal truck driver use Qualified Code(s): E11.65 - Type 2 diabetes mellitus with hyperglycemia Plan: Patient currently on Jardiance 25 mg daily, glipizide 10 mg p.o. b.i.d., metformin 1000 mg p.o. b.i.d., baby aspirin 81 mg daily. Goal a1c <7.0 today at 7.1 will keep same regimen. Condition is chronic and stable continue to monitor. (6) Benign essential HTN: Code(s): I10 - Essential (primary) hypertension Category: Medical Plan: Patient currently on hydrochlorothiazide 25 mg daily, metoprolol 50 mg extended release p.o. b.i.d.. Goal 130/80. Condition is chronic and stable continue to monitor. (7) Hypercholesterolemia with hypertriglyceridemia: Code(s): E78.2 - Mixed hyperlipidemia Category: Medical Plan: Patient currently on simvastatin 10 mg at bedtime. Goal LDL <70. Condition is chronic and stable continue to monitor. Plan Plan Patient was informed and verbally consented to the use of an ambient scribe for clinic note documentation during this visit. 1. Type 2 Diabetes Mellitus Glycemic control to be managed with Jardiance 25 mg, glipizide 10 mg twice daily, and metformin 1000 mg twice daily. HbA1c noted improved to 7.1% from prior levels. 2. Presbyopia Continuation of current ophthalmic drops; prednisone drops were the only active prescription. Other drops were or discontinued as confirmed. 3. Hyperlipidemia Managed with simvastatin 10 mg daily. 4. Rheumatoid Factor Elevation Referral to rheumatology for further evaluation given elevated rheumatoid factor; urgent referral requested to expedite rheumatology evaluation. 5. Tachycardia EKG was obtained revealed sinus tachycardia. Reviewed by Dr. Glass. No acute ischemic change are noted. Condition is chronic and stable continue to monitor. 6. For decreased hearing to the left ear will refer to ENT for further evaluation and management. Orders: Orders AMB EKG-In Office Today R00.0 - Tachycardia, unspecified Referrals Rheumatology Referral R76.8 - Other specified abnormal immunological findings in serum Ear/Nose/Throat Referral H91.92 - Unspecified hearing loss, left ear Medications: New ferrous sulfate 325 mg PO DAILY 90 tabs 0RF aspirin (Adult Low Dose Aspirin) 81 mg PO DAILY 90 tabs 1RF Refilled empagliflozin (Jardiance) 25 mg PO DAILY 90 tabs 1RF empagliflozin (Jardiance) 25 mg PO DAILY 90 tabs 0RF Patient Instructions: Patient Instructions - Expect a call from rheumatology for scheduling your consultation. - Continue with your current medication regimen as prescribed. - Monitor your heart rate and seek immediate care if you experience any unusual palpitations or symptoms. - Report any changes in your joint or body pain. - For your medications, ensure [facility] delivers them and report any discrepancies. - Follow up as scheduled with Dr. De Luna. - Maintain a record of your ocular symptoms and report any new changes to your eye dog day care attendant. - follow-up with ear nose and throat doctor for decreased hearing of your left ear Scribe Plan - Not visible on output: History of Present Illness The patient is a 68-year-old female presenting with concerns related to recent laboratory findings. She was previously evaluated with extensive laboratory tests on May 11, which revealed an elevated rheumatoid facto obtain by Dr. Bhatia the machine tank operator. He recommended having the patient follow-up with PCP regarding this blood work. Despite this laboratory finding, the patient denies any joint or body pains. The tests, conducted due to ocular complaints, also involved assessments for lupus, syphilis, and vitamin levels. Her antinuclear antibodies (NOELLE) test was negative, ruling out lupus. Syphilis serology was negative, while vitamin B12, thyroid-stimulating hormone (TSH), and angiotensin-converting enzyme levels were within normal limits. C-reactive protein (CRP) and liver function tests (ALT, AST) were also normal. Hemoglobin A1c was 7.1, which had improved from 8.8 in the previous year. She was not under hospital tray service worker care previously. The ocular issue possibly incited the rheumatology workup model of care. Patient also reported decreased hearing from the left ear and was concerned for possible cerumen impaction. Social History - Relies on [employer] service for medication deliveries and refills. Review of Systems - Cardiovascular: Reports intermittent palpitations. - Gastrointestinal: Denies constipation. - Musculoskeletal: Denies joint pain or body pain. - Ocular: Reports past issues with vision. Physical Exam Appearance: Alert. Oriented X3. No acute distress. Head: Normal external exam. Normocephalic. Atraumatic. Eyes: Pupils are equal, round, and reactive to light. Extraocular movements intact. Conjunctiva and sclera normal. Eyelids normal. Ears: External auditory canal normal. Tympanic membranes normal. Bilateral ears have cerumen although they are not impacted at this time. Throat: Pharynx normal. Uvula midline. Moist mucous membranes. Neck: Normal inspection. Neck supple. Full range of motion. No adenopathy. Thyroid Normal. No meningeal signs. No neck mass noted. Cardiovascular: Heart rate is 110. Heart sounds slightly irregular. No murmurs noted. Pulses normal throughout. Respiratory: No respiratory distress. Painless inspiration. Breath sounds normal. No wheezes/rales/rhonchi noted. Chest nontender. No accessory muscle usage noted or decreased air movement noted. Abdomen: Soft and nontender. Bowel sounds normal in all 4 quadrants. No distention noted. No organomegaly noted. No visible injury noted. Back: No costovertebral angle tenderness. Full range of motion noted. Skin: Skin warm and dry. Normal skin color. Normal skin turgor. No rashes/lesions/lacerations noted. Extremities: No lower extremity edema. Extremities exhibit normal range of motion. Extremities nontender. Neuro: Oriented X 3. No motor deficit. No sensory deficit. Reflexes normal. Results - Labs: Elevated rheumatoid factor, negative NOELLE and syphilis serology, normal B12, TSH, CRP, ALT, AST. - Glycemic Control: HbA1c at 7.1%. - EKG sinus tachycardia with a ventricular rate of 90. No acute ischemic change are noted. Plan Patient was informed and verbally consented to the use of an ambient scribe for clinic note documentation during this visit. 1. Type 2 Diabetes Mellitus Glycemic control to be managed with Jardiance 25 mg, glipizide 10 mg twice daily, and metformin 1000 mg twice daily. HbA1c noted improved to 7.1% from prior levels. 2. Presbyopia Continuation of current ophthalmic drops; prednisone drops were the only active prescription. Other drops were or discontinued as confirmed. 3. Hyperlipidemia Managed with simvastatin 10 mg daily. 4. Rheumatoid Factor Elevation Referral to rheumatology for further evaluation given elevated rheumatoid factor; urgent referral requested to expedite rheumatology evaluation. 5. Tachycardia EKG was obtained revealed sinus tachycardia. Reviewed by Dr. Glass. No acute ischemic change are noted. Condition is chronic and stable continue to monitor. 6. For decreased hearing to the left ear will refer to ENT for further evaluation and management. Discussion Notes I informed the patient about the concerns regarding elevated rheumatoid factor, and I have referred her to rheumatology for further evaluation since the factor was high and symptomatic rheumatologic conditions were ruled out. Discussions included her improved glycemic control shown by the reduced HbA1c levels. I recommended an EKG due to the apparent irregular heartbeat and tachycardia to exclude atrial fibrillation. EKG was negative for ischemia or atrial fibrillation revealed tachycardia otherwise no acute ischemic changes. Reviewed by Dr. Glass. I assured her that once the tests and consultations are completed, we will address all emergent needs. We discussed the continuation of her current medications and the importance of compliance. Patient Instructions - Expect a call from rheumatology for scheduling your consultation. - Continue with your current medication regimen as prescribed. - Monitor your heart rate and seek immediate care if you experience any unusual palpitations or symptoms. - Report any changes in your joint or body pain. - For your medications, ensure [facility] delivers them and report any discrepancies. - Follow up as scheduled with Dr. De Luna. - Maintain a record of your ocular symptoms and report any new changes to your eye dog day care attendant. - follow-up with ear nose and throat doctor for decreased hearing of your left ear
[2024-05-26 14:42] VITALS: BP 112/76; PULSE 110; TEMP 36.6; O2SAT 99; BMI 19.5
--- OUTSIDE RECORDS SUMMARY | 2024-05-26 14:53 | XMS_ITS | Clinical Summary ---
Author Organization [facility] ity Address [address] [place] [address] Care Team Providers Care Oil Well Directional Surveyor Name Role Phone Ale Ledezma Primary Care Provider [phone] Social History Tobacco Use Types Packs/Day Years [...] DTaP,Tdap,and Td Vaccines (1 - Tdap) 1972 Pneumococcal Vaccine: 50+ Ye ars (1 of [...] age to complete this topic Care Teams Oil Well Directional Surveyor Relationship Specialty Start Date End Date Ale Ledezma [address] [place] [address] Dr Qian MA PCP - General Internal Medicine 04/13/11
== END 2024-05-26 15:28 | disposition home or self-care (01) ==
PROVIDERS: PCP Internal Medicine; Visit Provider Physician Assistant Medical
DX: R00.0 Tachycardia, unspecified (principal)

== ENCOUNTER → 2024-05-26 14:33 | Outpatient (BNVA) | payer MEDICARE, MEDICAID, SELFPAY | PROVIDERS: PCP Internal Medicine; Visit Provider Physician Assistant Medical | DX: R76.8 Other specified abnormal immunological findings in serum (principal); R00.0 Tachycardia, unspecified; H91.92 Unspecified hearing loss, left ear; E78.5 Hyperlipidemia, unspecified; E11.65 Type 2 diabetes mellitus with hyperglycemia; E78.2 Mixed hyperlipidemia; I10 Essential (primary) hypertension | CPT/HCPCS: 93005; 96127; 99212 ==

== ENCOUNTER 2024-07-20 13:32 | Outpatient (AMB) | payer MEDICARE, MEDICAID, SELFPAY ==
--- NOTE | 2024-07-20 13:33 | A.OFFPC_ITS ---
Vital Signs 07/20/24 13:34 Height 5 ft 6 in Weight 125 lb 8 oz BMI 20.3 BP 112/60 Blood Pressure Location Lt brachial Position Sitting Pulse 64 Pulse Source Pulse Oximeter Temp 96.9 F Temp Source Temporal Artery Scan Pulse Oximetry (%) 96 Oxygen Delivery Method Room Air Intake Visit Reasons: 3 month f/u - see comments Intake Note: Patient is here to follow up on DM. Engine Repairer Required: No Nurse Anesthesia Program Director: Not Required per policy Accompanied by: Self / Same As Patient Allergies No Known Allergies Allergy (Verified 07/20/24 13:34) Tobacco use date assessed: 07/20/24 Fall risk assessment: No Falls in past year Last assessed Fall Risk: 07/20/24 Dental Screening Dental Screen Date: 07/20/24 Did you have a dental visit in the last 12 months?: Yes Did you have a dental problem in the last 6 months where you did not have access to dental care?: No Was dental information given to patient?: Patient has dentist [facility] Medical History Decreased hearing of left ear Tachycardia Rheumatoid factor positive Allergic conjunctivitis Adult general medical exam Screening for diabetes mellitus Hyperlipidemia Type 2 diabetes mellitus with hyperglycemia Hypercholesterolemia with hypertriglyceridemia Benign essential HTN Surgical History History of colonoscopy (~08/20/17) History of partial hysterectomy History of eye surgery Family History Father No problems noted. Mother No problems noted. Sister No problems noted. Social History Household Members: Family Housing: House Alcohol intake: never Patient Tobacco Use Status: Never used Tobacco e-Cigarette/Vaping Use: Never Used Second Hand Smoke Exposure: No service: No Current occupational status: retired Cognitive needs: No Hearing needs: No Vision needs: No Questionnaire Thrive Questionnaire Date Thrive assessed: 05/26/24 JEROME-7 AMB Questionnaire JEROME-7 Date JEROME - 7 assessed: 05/26/24 Source: Developed by Drs. Javier Marmolejo, Miya Abernathy, Blayne Price and colleagues, with an educational lindsay from [employer]. Physical exam (Primary Care) Vital Signs: Last Vital Signs Temp 96.9 F 07/20/24 13:34 Pulse 64 07/20/24 13:34 BP 112/60 07/20/24 13:34 Pulse Ox 96 07/20/24 13:34 Oxygen Delivery Method Room Air 07/20/24 13:34 BMI result Body Mass Index 20.3 Tobacco/Smoking Status: Tobacco use Status Tobacco use date assessed 07/20/24 07/20/24 13:49 Patient Tobacco Use Status Never used Tobacco 07/20/24 13:49 e-Cigarette/Vaping Use Never Used 07/20/24 13:49 Thrive Assessment: Date of Thrive Assessment Date Thrive assessed 05/26/24 07/20/24 13:49 Coding Level of Care Code Est Pt Level 4 (73049) Complex EM visit Add On G2211 Diagnoses Urinary incontinence R32 Assessment & Plan Assessment & Plan (1) Urinary incontinence: Code(s): R32 - Unspecified urinary incontinence Plan: Advised her to keep the appt with the urologist. Continue Jardiance. Benefits from medication surpass the side effects including frequent urination Plan History of Present Illness The patient is a 68-year-old female presenting with routine management concerns for her current health issues. She experiences elevated intraocular pressure, managed through ophthalmologic care, requiring glaucoma eye drops. She reports urinary incontinence involving frequent urination, which is partially managed by fluid intake control and wearing absorbent pads during outings. Her diabetes is managed, with her medication, Jardiance, benefiting both her glycemic control and cardiovascular health. She associates her occasional abdominal pain, likely linked to diverticulitis, with dietary indiscretions. Preventive care is up-to-date with a pending mammogram in August or September. Social History - Patient actively manages her diabetes and sees healthcare providers regularly. - Employs strategies such as managing fluid intake to partially mitigate urinary incontinence. - Driving is self-reported as part of regular activity. Review of Systems - Ophthalmology: Reports increased intraocular pressure. - Genitourinary: Reports urinary incontinence, characterized by frequency. - Endocrinology: Denies any excessive blood sugar levels. - Gastrointestinal: Reports history of diverticulitis with occasional associated pain. - Overall systems: Denies any current abdominal pain. Physical Exam General: Cooperative and healthy appearing Nutritional Appearance: Well nourished Orientation/consciousness: Patient oriented x3 Limitations: No limitations Head: Normal to inspection General: Appearance normal, both eyes and all related structures Neck: Normal visual inspection Chest: Normal palpation of entire chest wall Respiratory: Normal respiratory effort Neurology: Patient oriented x3 Results Plan I advised continuation of glaucoma management with eye drops, emphasizing their necessity due to increased intraocular pressure. The patient will consult with a university demonstrator to evaluate her urinary incontinence, temporarily managing the condition through fluid control. Jardiance remains part of her diabetes management plan due to its benefits for heart and blood glucose control. A routine mammogram is scheduled for August or September, ensuring preventive health care compliance. No current medication refills were necessary, and we will re- evaluate her condition in six months. Patient was informed and verbally consented to the use of an ambient scribe for clinic note documentation during this visit. Discussion Notes I explained that the increased intraocular pressure necessitates resuming glaucoma drops, as advised by her options advisor. For her urinary incontinence, we agreed on awaiting further assessment by her university demonstrator but advised managing symptoms with controlled fluid intake. We reviewed the benefits of continuing Jardiance for her diabetes and heart health. I confirmed that her blood sugar levels are in good range. We discussed the importance of maintaining her preventive care schedule, including the upcoming mammogram. Follow-up in six months was agreed upon to assess any changes or needs for medication adjustments. Patient Instructions - Continue using glaucoma eye drops as previously instructed by the eye doctor. - Manage fluid intake to help control urinary incontinence until upcoming university demonstrator visit. - Continue Jardiance for diabetes and cardiovascular health as prescribed. - Schedule and attend a mammogram in August or September. - Follow-up in six months for routine evaluation and care management.
[2024-07-20 13:34] VITALS: BP 112/60; PULSE 64; TEMP 36.1; O2SAT 96; BMI 20.3
--- OUTSIDE RECORDS SUMMARY | 2024-07-20 16:34 | XMS_ITS | Clinical Summary ---
Author Organization [facility] ity Address [address] [place] [address] Care Team Providers Care Transportation Museum Helper Name Role Phone Ale eLdezma Primary Care Provider [phone] Social History Tobacco Use Types Packs/Day Years [...] Influencers of Health Screening 03/04/2022 COVID-19 Vaccine (2023-2 5 season) 2023 Influenza Vaccine (Season Ended) 2024 02/09/20 19 RSV Immunization Adult Patie nts (1 - 1-dose 75+ series) 2028 HIB [...] age to complete this topic Meningococcal B Vaccine Aged Out No l onger eligible based on patient's age to complete this topic RSV Immunization Patients Un sabrina 20 months Aged Out No longer eligible b ased on patient's age to complete this topic Varicella Vaccines Aged Out No longer eligible based on patient's age to complete this topic Care Teams Transportation Museum Helper Relationship Specialty Start Date End Date Ale Ledezma [address] [place] [address] Dr Qian MA PCP - General Internal Medicine 04/13/11
== END 2024-07-20 14:02 | disposition home or self-care (01) ==
LOC: HO.HMCH 13:32
PROVIDERS: PCP Internal Medicine; Visit Provider Internal Medicine
DX: R32 Unspecified urinary incontinence (principal)

== ENCOUNTER → 2024-07-20 13:32 | Outpatient (BNVA) | payer MEDICARE, MEDICAID, SELFPAY | PROVIDERS: PCP Internal Medicine; Visit Provider Internal Medicine | DX: R32 Unspecified urinary incontinence (principal); E11.9 Type 2 diabetes mellitus without complications | CPT/HCPCS: 99212 ==

== ENCOUNTER 2024-07-27 08:25 | Outpatient (AMB) | payer MEDICARE, MEDICAID, SELFPAY ==
--- NOTE | 2024-07-27 08:27 | A.OFFVIS_ITS ---
Vital Signs 07/27/24 08:34 Height 5 ft 6 in Weight 126 lb 12.253 oz BMI 20.5 BP 112/64 Blood Pressure Location Lt brachial Position Sitting Pulse 69 Pulse Source Pulse Oximeter Pulse Oximetry (%) 99 Oxygen Delivery Method Room Air Intake Visit Reasons: abnormal labs/New Patient Intake Note: Patient presents for abnormal labs. Allergies No Known Allergies Allergy (Verified 07/27/24 08:31) Medication List - Last Reconciled 07/27/24 by Mabel Mann MD aspirin (Adult Low Dose Aspirin) 81 mg PO DAILY blood sugar diagnostic (FreeStyle Lite Strips) As directed empagliflozin (Jardiance) 25 mg PO DAILY ferrous sulfate 325 mg PO DAILY glipizide 10 mg (2 x 5 mg) PO BID hydrochlorothiazide 25 mg PO QAM metformin 1,000 mg PO BID metoprolol succinate ER 50 mg PO BID simvastatin 10 mg PO BEDTIME timolol 0.5% 1 drp ophthalmic (eye) DAILY HPI Comments Details: Patient is a 68-year-old female with diabetes, hypertension, hyperlipidemia, and glaucoma here today for evaluation of a positive rheumatoid factor Patient is currently seeing Dr. Jed Bhatia for hemiretinal vein occlusion, glaucoma and cataracts. Was being treated for her glaucoma and developed red eye. There was no pain associated with the right eye. Initially this was thought to be due to an allergy. She was subsequently given steroid eyedrops for the red eye improvement however her glaucoma worsened and there were stopped. Because of her red eye she was sent to do testing and her rheumatoid factor was positive and so she was referred to Rheumatology for further evaluation. Patient denies prolonged morning stiffness, joint pain involving the hands, feet or any other joints. She says sometimes that she gets shoulder pain but the pain is usually intermittent in nature. No family history of autoimmune disease such as rheumatoid arthritis or lupus [facility] Medical History Decreased hearing of left ear Tachycardia Rheumatoid factor positive Allergic conjunctivitis Adult general medical exam Screening for diabetes mellitus Hyperlipidemia Type 2 diabetes mellitus with hyperglycemia Hypercholesterolemia with hypertriglyceridemia Benign essential HTN Surgical History History of colonoscopy (~08/20/17) History of partial hysterectomy History of eye surgery Family History Father No problems noted. Mother No problems noted. Sister No problems noted. Social History Household Members: Family Housing: House Alcohol intake: never Patient Tobacco Use Status: Never used Tobacco e-Cigarette/Vaping Use: Never Used Second Hand Smoke Exposure: No service: No Current occupational status: retired Cognitive needs: No Hearing needs: No Vision needs: No Review of Systems Const Details: Review of Systems Constitutional: Denies fever, chills, weight loss ENT: Denies vision changes, dental caries, dry mouth GI: Denies nausea, vomiting, diarrhea, abdominal pain, change in BM Pulm: Denies SOB, KENNY, hemoptysis, wheezing Cards: Denies chest pain, palpitations Skin: Denies Raynaud's, rash, nail changes, photosensitivity, ADMINISTRATIVE SUPPORT TECHNICIAN: Denies headaches, weakness, paresthesias, recurrent falls MSK: as per HPI All other systems reviewed and are unremarkable except noted above Physical Exam Vital Signs: Last Vital Signs Pulse 69 07/27/24 08:34 BP 112/64 07/27/24 08:34 Pulse Ox 99 07/27/24 08:34 Oxygen Delivery Method Room Air 07/27/24 08:34 BMI result Body Mass Index 20.5 Vital signs reviewed Physical Examination CONSTITUITIONAL Patient alert and cooperative. Well appearing and in no apparent painful distress HEENT Conjunctiva and sclera clear. ?Pupils equal round and reactive to light. ?No lymphadenopathy. ? CHEST/RESPIRATORY SYSTEM Normal respiratory effort and able to speak in complete sentences. ?Clear to auscultation bilaterally. ?No crackles, rales, rhonchi, wheezes heard. CARDIAC SYSTEM Regular rate and rhythm. ?S1 and S2 heard no murmurs. ?Radial pulses intact bilaterally MSK Hands: ?Able to make a fist. No synovitis noted to the MCPs, PIPs or DIPs. ?No tenderness to palpation of these joints. Heberden nodes noted? Wrists: ?Full range of motion at the wrists without pain. ?No tenderness to palpation or synovitis noted to the wrists. Elbows: Full range of motion without pain. No tenderness, weakness, swelling, increased warmth or erythema. Shoulders: Full range of active range of motion without pain. No tenderness, weakness, swelling, increased warmth or erythema. Hips: Full range of motion without pain. Hip bursa: No tenderness to palpation Knees: ?Full range of motion. ?No tenderness, swelling, increased warmth or erythema.? Crepitations felt bilaterally Ankles: Full range of motion. ?No tenderness, swelling, increased warmth or erythema.? Feet: ?Negative squeeze test. ?No tenderness to palpation or swelling of the MTPs. Tender points:?No tenderness to palpation of the bilateral trapezius, supraspinatus, greater trochanters, anterior costochondral junctions, bilateral gluteal areas, bilateral suboccipital muscle insertions SKIN Skin intact without rashes. Results Reviewed Results Reviewed: Laboratory Tests 12/17/23 05/11/24 05/15/24 12:24 12:05 13:50 WBC 6.4 RBC 4.69 Hgb 14.6 Hct 41.2 Plt Count 306 D ESR 25 H 18 Sodium 142 Potassium 4.0 Chloride 102 Carbon Dioxide 28 BUN 22 H Creatinine 1.11 AST 19 ALT 15 C-Reactive Protein < 0.10 Angiotensin Convert Enz 49 Immunology Labs 05/11/24 12:05 Rheumatoid Factor 74.9 H NOELLE Screen NEGATIVE DEXA 01/2024 FINDINGS: LEFT FEMUR, NECK: BMD 0.802 g/cm2, Z-score -0.8, T-score -1.7, osteopenia. LEFT FEMUR, TOTAL: BMD 0.793 g/cm2, Z-score -1.0, T-score -1.7, osteopenia. AP SPINE L1-L4: BMD 1.153 g/cm2, Z-score 1.0, T-score -0.2, normal. 10-YEAR FRACTURE RISK PREDICTION, FRAX: Major osteoporotic fracture (clinical spine, forearm, hip or shoulder) 4.4%. Hip fracture 0.8%. Assessment & Plan Assessment & Plan (1) Rheumatoid factor positive: Code(s): R76.8 - Other specified abnormal immunological findings in serum Category: Medical Plan: #RF positive Patient is a 68-year-old female with a several ocular issues including sloan retinal vein occlusion, glaucoma and cataracts who is here today for evaluation of a positive rheumatoid factor in the setting of red eye. At this time I need more information on her red eye given that she has a known joint symptoms concerning for active rheumatoid arthritis. I will say it is unusual to have eye manifestations in the absence of joint manifestations for rheumatoid arthritis. We will reach out to her ophthalmologists and have patient follow up in 2 weeks Plan - Reach out to Ophthalmology - XR hands, wrists and shoulders - RTC 2 weeks Plan I spent 45 minutes reviewing the record and labs, taking a history, examining the patient, discussing the treatment plan, ordering diagnostic work up, contacting ophthalmology and documenting in the medical record Orders: Orders XR hand LT min 3V Today R76.8 - Other specified abnormal immunological findings in serum XR hand RT min 3V Today R76.8 - Other specified abnormal immunological findings in serum XR wrist RT min 3V Today R76.8 - Other specified abnormal immunological findings in serum XR wrist LT min 3V Today R76.8 - Other specified abnormal immunological findings in serum XR shoulder RT min 2V Today M25.519 - Pain in unspecified shoulder XR shoulder LT min 2V Today M25.519 - Pain in unspecified shoulder Coding Level of Care Code New Pt Level 4 (50639) Diagnoses Rheumatoid factor positive R76.8
[2024-07-27 08:34] VITALS: BP 112/64; PULSE 69; O2SAT 99; BMI 20.5
--- OUTSIDE RECORDS SUMMARY | 2024-07-27 08:46 | XMS_ITS | Clinical Summary ---
Author Organization [facility] ity Address [address] [place] [address] Care Team Providers Care Planishing Hammer Operator Name Role Phone Ale Ledezma Primary Care Provider [phone] Social History Tobacco Use Types Packs/Day Years [...] age to complete this topic Care Teams Planishing Hammer Operator Relationship Specialty Start Date End Date Ale Ledezma [address] [place] [address] Dr Qian MA PCP - General Internal Medicine 04/13/11
== END 2024-07-27 09:02 | disposition home or self-care (01) ==
LOC: HO.RHE 08:26
PROVIDERS: PCP Internal Medicine; Visit Provider Student in an Organized Health Care Education/Training Program
DX: R76.8 Other specified abnormal immunological findings in serum (principal)
CPT/HCPCS: 99204

== ENCOUNTER → 2024-07-27 08:25 | Outpatient (BNVA) | payer MEDICARE, MEDICAID, SELFPAY | PROVIDERS: PCP Internal Medicine; Visit Provider Student in an Organized Health Care Education/Training Program | DX: R76.8 Other specified abnormal immunological findings in serum (principal) | CPT/HCPCS: 99202 ==

== ENCOUNTER 2024-08-07 14:45 | Outpatient (REF) | payer MEDICARE, MEDICAID, SELFPAY ==
--- NOTE | ~2024-08-07 | XR_ITS ---
EXAMINATION: XR HAND, RIGHT XR HAND, LEFT CLINICAL INFORMATION: R76.8 - Other specified abnormal immunological findings in serum COMPARISON: None TECHNIQUE: PA, lateral, and oblique views of the each hand. FINDINGS: RIGHT HAND/WRIST: No fracture, dislocation, or suspicious bone lesion. There is normal alignment. There is normal bone mineralization. No periarticular osteopenia. There is no periarticular erosion identified. Joint spaces are maintained. No chondrocalcinosis present. Normal soft tissues. LEFT HAND/WRIST: No fracture, dislocation, or suspicious bone lesion. There is normal alignment. There is normal bone mineralization. No periarticular osteopenia. There is no periarticular erosion identified. Joint spaces are maintained. No chondrocalcinosis present. Normal soft tissues. XR/XR Hand Bilat min 3v IMPRESSION: Normal radiographs of the hands. There is no evidence of inflammatory arthropathy. Electronically signed by: Lokesh Beck MD 08/07/2024 03:36 PM EDT
--- NOTE | ~2024-08-07 | XR_ITS ---
EXAMINATION: XR SHOULDER 2 OR MORE VIEWS BILATERAL HISTORY: M25.519 - Pain in unspecified shoulder COMPARISON: There are no prior studies available for comparison. FINDINGS: Ten views of the bilateral shoulders are submitted. Osseous mineralization is normal. There is no fracture or dislocation. The glenohumeral and acromioclavicular joint spaces are maintained. There are surgical clips in the left neck. The soft tissues are otherwise unremarkable. XR/XR Shoulder Daryl min 2V IMPRESSION: Unremarkable examination of the bilateral shoulders. Electronically signed by: Javier Wu MD 08/07/2024 03:31 PM EDT
--- NOTE | ~2024-08-07 | XR_ITS ---
EXAMINATION: XR WRIST, RIGHT XR WRIST, LEFT CLINICAL INFORMATION: R76.8 - Other specified abnormal immunological findings in serum COMPARISON: None TECHNIQUE: PA, lateral, oblique, and scaphoid views of the each wrist. FINDINGS: RIGHT WRIST: No fracture, dislocation, or suspicious bone lesion. There is normal alignment. There is normal bone mineralization. No periarticular osteopenia. There is no periarticular erosion identified. There is no erosion of the ulnar styloid. Joint spaces are maintained. No chondrocalcinosis present. Normal soft tissues. LEFT WRIST: No fracture, dislocation, or suspicious bone lesion. There is normal alignment. There is normal bone mineralization. No periarticular osteopenia. There is no periarticular erosion identified. There is no erosion of the ulnar styloid. Joint spaces are maintained. No chondrocalcinosis present. Normal soft tissues. XR/XR Wrist Daryl min 3V IMPRESSION: 1. Normal right wrist radiographs. No evidence of inflammatory arthropathy. 2. Normal left wrist radiographs. No evidence of arthropathy. Electronically signed by: Lokesh Beck MD 08/07/2024 03:33 PM EDT
--- OUTSIDE RECORDS SUMMARY | 2024-08-07 16:20 | XMS_ITS | Clinical Summary ---
Author Organization [facility] ity Address [address] [place] [address] Care Team Providers Care Paint Spray Tender Name Role Phone Ale Ledezma Primary Care Provider [phone] Social History Tobacco Use Types Packs/Day Years [...] age to complete this topic Care Teams Paint Spray Tender Relationship Specialty Start Date End Date Ale Ledezma [address] [place] [address] Dr Qian MA PCP - General Internal Medicine 04/13/11
== END 2024-08-07 14:46 | disposition home or self-care (01) ==
LOC: HO.XRAY 14:45
PROVIDERS: PCP Internal Medicine; Visit Provider Student in an Organized Health Care Education/Training Program
DX: R76.8 Other specified abnormal immunological findings in serum (principal)
CPT/HCPCS: 73030; 73110; 73130

== ENCOUNTER → 2024-08-07 14:49 | Outpatient (BNV) | payer MEDICARE, MEDICAID, SELFPAY | PROVIDERS: PCP Internal Medicine; Visit Provider Radiology Diagnostic Radiology | DX: M25.511 Pain in right shoulder (principal); M25.512 Pain in left shoulder; R76.8 Other specified abnormal immunological findings in serum | CPT/HCPCS: 73110; 73130 ==

== ENCOUNTER 2024-08-10 11:40 | Outpatient (AMB) | payer MEDICARE, MEDICAID, SELFPAY ==
--- NOTE | 2024-08-10 11:44 | MHC.OFFVIS ---
Vital Signs 08/10/24 11:49 Height 5 ft 6 in Weight 124 lb 12.506 oz BMI 20.1 BP 112/62 Blood Pressure Location Lt brachial Position Sitting Pulse 80 Pulse Source Pulse Oximeter Pulse Oximetry (%) 98 Oxygen Delivery Method Room Air Intake Visit Reasons: abnormal labs/ 2 wk f/u Intake Note: Patient presents for abnormal labs/2 weeks follow up. Allergies No Known Allergies Allergy (Verified 08/10/24 11:48) HPI Comments Details: Patient is a 68-year-old female with diabetes, hypertension, hyperlipidemia, and glaucoma here today for follow up evaluation of a positive rheumatoid factor in the setting of eye disease Interval History: Patient last seen 07/27/2024 with me. At that time she was establishing care for the evaluation of a positive rheumatoid factor in the setting of eye disease. Patient did not have any clinical evidence of synovitis, and her history did not include prolonged morning stiffness or joint pain. After the visit I reached out to her ophthalmologists and there was no concern for scleritis or iritis or any other inflammatory disease based on the notes received. No change in her symptoms Current Rheumatology Medication(s): [facility] Medical History Decreased hearing of left ear Tachycardia Rheumatoid factor positive Allergic conjunctivitis Adult general medical exam Screening for diabetes mellitus Hyperlipidemia Type 2 diabetes mellitus with hyperglycemia Hypercholesterolemia with hypertriglyceridemia Benign essential HTN Surgical History History of colonoscopy (~08/20/17) History of partial hysterectomy History of eye surgery Family History Father No problems noted. Mother No problems noted. Sister No problems noted. Social History Household Members: Family Housing: House Alcohol intake: never Patient Tobacco Use Status: Never used Tobacco e-Cigarette/Vaping Use: Never Used Second Hand Smoke Exposure: No service: No Current occupational status: retired Cognitive needs: No Hearing needs: No Vision needs: No Review of Systems Const Details: Review of Systems Constitutional: Denies fever, chills, weight loss ENT: Denies vision changes, eye pain or eye redness, dental caries, dry mouth GI: Denies nausea, vomiting, diarrhea, abdominal pain, change in BM Pulm: Denies SOB, KENNY, hemoptysis, wheezing Cards: Denies chest pain, palpitations Skin: Denies Raynaud's, rash, nail changes, photosensitivity, REVERSE UNIT OPERATOR: Denies headaches, weakness, paresthesias, recurrent falls MSK: as per HPI All other systems reviewed and are unremarkable except noted above Physical Exam Vital signs reviewed Physical Examination CONSTITUITIONAL Patient alert and cooperative. Well appearing and in no apparent painful distress HEENT Conjunctiva and sclera clear. ?Pupils equal round and reactive to light. ?No lymphadenopathy. ? CHEST/RESPIRATORY SYSTEM Normal respiratory effort and able to speak in complete sentences. ?Clear to auscultation bilaterally. ?No crackles, rales, rhonchi, wheezes heard. CARDIAC SYSTEM Regular rate and rhythm. ?S1 and S2 heard no murmurs. ?Radial pulses intact bilaterally MSK Hands: ?Able to make a fist. No synovitis noted to the MCPs, PIPs or DIPs. ?No tenderness to palpation of these joints. Heberden nodes noted? Wrists: ?Full range of motion at the wrists without pain. ?No tenderness to palpation or synovitis noted to the wrists. Elbows: Full range of motion without pain. No tenderness, weakness, swelling, increased warmth or erythema. Shoulders: Full range of active range of motion without pain. No tenderness, weakness, swelling, increased warmth or erythema. Hips: Full range of motion without pain. Hip bursa: No tenderness to palpation Knees: ?Full range of motion. ?No tenderness, swelling, increased warmth or erythema.? Crepitations felt bilaterally Ankles: Full range of motion. ?No tenderness, swelling, increased warmth or erythema.? Feet: ?Negative squeeze test. ?No tenderness to palpation or swelling of the MTPs. Tender points:?No tenderness to palpation of the bilateral trapezius, supraspinatus, greater trochanters, anterior costochondral junctions, bilateral gluteal areas, bilateral suboccipital muscle insertions SKIN Skin intact without rashes. Results Reviewed Results Reviewed: Laboratory Tests 05/11/24 05/15/24 12:05 13:50 WBC 6.4 RBC 4.69 Hgb 14.6 Hct 41.2 Plt Count 306 D ESR 18 Sodium 142 Potassium 4.0 Chloride 102 Carbon Dioxide 28 BUN 22 H Creatinine 1.11 AST 19 ALT 15 C-Reactive Protein < 0.10 Angiotensin Convert Enz 49 Immunology labs 05/11/24 12:05 Rheumatoid Factor 74.9 H NOELLE Screen NEGATIVE ANCA Immunofluorescen NEGATIVE XR Bilateral Shoulders 08/2024 FINDINGS: Ten views of the bilateral shoulders are submitted. Osseous mineralization is normal. There is no fracture or dislocation. The glenohumeral and acromioclavicular joint spaces are maintained. There are surgical clips in the left neck. The soft tissues are otherwise unremarkable. IMPRESSION: Unremarkable examination of the bilateral shoulders. XR Bilateral Wrists 08/2024 FINDINGS: RIGHT WRIST: No fracture, dislocation, or suspicious bone lesion. There is normal alignment. There is normal bone mineralization. No periarticular osteopenia. There is no periarticular erosion identified. There is no erosion of the ulnar styloid. Joint spaces are maintained. No chondrocalcinosis present. Normal soft tissues. LEFT WRIST: No fracture, dislocation, or suspicious bone lesion. There is normal alignment. There is normal bone mineralization. No periarticular osteopenia. There is no periarticular erosion identified. There is no erosion of the ulnar styloid. Joint spaces are maintained. No chondrocalcinosis present. Normal soft tissues. IMPRESSION: 1. Normal right wrist radiographs. No evidence of inflammatory arthropathy. 2. Normal left wrist radiographs. No evidence of arthropathy. XR Bilateral Hands 08/2024 FINDINGS: RIGHT HAND/WRIST: No fracture, dislocation, or suspicious bone lesion. There is normal alignment. There is normal bone mineralization. No periarticular osteopenia. There is no periarticular erosion identified. Joint spaces are maintained. No chondrocalcinosis present. Normal soft tissues. LEFT HAND/WRIST: No fracture, dislocation, or suspicious bone lesion. There is normal alignment. There is normal bone mineralization. No periarticular osteopenia. There is no periarticular erosion identified. Joint spaces are maintained. No chondrocalcinosis present. Normal soft tissues. IMPRESSION: Normal radiographs of the hands. There is no evidence of inflammatory arthropathy. Assessment & Plan Assessment & Plan (1) Rheumatoid factor positive: Code(s): R76.8 - Other specified abnormal immunological findings in serum Category: Medical Plan: #RF positive Patient is a 68-year-old female with a several ocular issues including sloan retinal vein occlusion, glaucoma and cataracts who is here today for follow up evaluation of a positive rheumatoid factor in the setting of red eye. At this time this patient does not have any clinical evidence of RA. Plan - RTC prn Plan I spent 20 minutes reviewing the record and labs, taking a history, examining the patient, discussing the treatment plan, and documenting in the medical record Coding Level of Care Code Est Pt Level 3 (27864) Diagnoses Rheumatoid factor positive R76.8
[2024-08-10 11:49] VITALS: BP 112/62; PULSE 80; O2SAT 98; BMI 20.1
--- OUTSIDE RECORDS SUMMARY | 2024-08-10 13:13 | XMS_ITS | Clinical Summary ---
Author Organization [facility] ity Address [address] [place] [address] Care Team Providers Care Coke Drawer Hand Name Role Phone Ale Ledezma Primary Care Provider [phone] Social History Tobacco Use Types Packs/Day Years [...] age to complete this topic Care Teams Coke Drawer Hand Relationship Specialty Start Date End Date Ale Ledezma [address] [place] [address] Dr Qian MA PCP - General Internal Medicine 04/13/11
== END 2024-08-10 12:01 | disposition home or self-care (01) ==
LOC: HO.RHE 11:40
PROVIDERS: PCP Internal Medicine; Visit Provider Student in an Organized Health Care Education/Training Program
DX: R76.8 Other specified abnormal immunological findings in serum (principal)
CPT/HCPCS: 99213

== ENCOUNTER → 2024-08-10 11:40 | Outpatient (BNVA) | payer MEDICARE, MEDICAID, SELFPAY | PROVIDERS: PCP Internal Medicine; Visit Provider Student in an Organized Health Care Education/Training Program | DX: R76.8 Other specified abnormal immunological findings in serum (principal) | CPT/HCPCS: 99212 ==

== ENCOUNTER 2024-12-26 11:47 | Outpatient (AMB) | payer MEDICARE, MEDICAID, SELFPAY ==
--- NOTE | 2024-12-26 11:52 | MHC.OFFVIS ---
Vital Signs 12/26/24 11:57 Height 5 ft 6 in Weight 124 lb BMI 20.0 Intake Visit Reasons: annual Director Of Student Services: Director Of Student Services Present (mis) Accompanied by: Self / Same As Patient Allergies No Known Allergies Allergy (Verified 12/26/24 11:58) HPI Comments Details: Presenting for annual exam. Complaining of urinary frequency , urgency and urge incontinence, no dysuria Last Pap/HPV was many years ago, no history of abnormal Pap smears the patient is status post hysterectomy for benign myomas and heavy menstrual cycles 30 years ago Last Mammogram was in 10/[address] [facility] according to the patient no reports available Last Colonoscopy was in April of 2023 according to patient was negative and recommendation was to repeat in 5 years, no reports available Last DEXA scan was in 03/28 [facility] Medical History Decreased hearing of left ear Tachycardia Rheumatoid factor positive Allergic conjunctivitis Adult general medical exam Screening for diabetes mellitus Hyperlipidemia Type 2 diabetes mellitus with hyperglycemia Hypercholesterolemia with hypertriglyceridemia Benign essential HTN Surgical History History of colonoscopy (~08/20/17) History of partial hysterectomy History of eye surgery Family History Father No problems noted. Mother No problems noted. Sister No problems noted. Social History Household Members: Family Housing: House Alcohol intake: never Patient Tobacco Use Status: Never used Tobacco e-Cigarette/Vaping Use: Never Used Second Hand Smoke Exposure: No service: No Current occupational status: retired Cognitive needs: No Hearing needs: No Vision needs: No Review of Systems Const All systems reviewed & are unremarkable except as noted in HPI and below Card Reports as per HPI and Reports no additional complaints Resp Reports as per HPI and Reports no additional complaints GI Reports as per HPI and Reports no additional complaints Reports as per HPI Physical Exam Vital Signs: BMI result Body Mass Index 20.0 Const General: cooperative, healthy appearing and comfortable General: Yes bladder normal to palpation External Female Exam: No lesion Speculum Exam - Vagina: normal appearance of the vagina, normal vaginal discharge and not erythematous Speculum Exam - Cervix: Cervix absent Bimanual exam- vagina & uterus: bladder normal to palpation and uterus absent Bimanual Exam- Adnexa, other: Other (No masses detected) Assessment & Plan Assessment & Plan (1) Well woman exam: Code(s): Z01.419 - Encounter for gynecological examination (general) (routine) without abnormal findings Category: Medical Plan: Cotesting not indicated. Instructions given the patient to schedule next screening Mammogram. Counseled the patient about the recommended dietary allowance of 1000 mg of Calcium & 600 IU of vitamin D. The patient was instructed to perform monthly self-breast exams and to schedule an annual exam in a year; All questions answered and the patient verbalized understanding. Instructed the patient to schedule annual exam in a year (2) Urgency incontinence: Code(s): N39.41 - Urge incontinence Category: Medical Plan: Discussed with the patient the different types of Urine incontinence, stress urinary incontinence, intrinsic sphincter deficiency, overactive bladder and its work up. We will refer to Urology. All questions answered, the patient verbalized understanding. Orders: Referrals Urology Referral R32 - Unspecified urinary incontinence Coding Level of Care Code Est Pt Prev Care >65y(29980) Diagnoses Well woman exam Z01.419 Urgency incontinence N39.41
--- OUTSIDE RECORDS SUMMARY | 2024-12-26 14:37 | XMS_ITS | Clinical Summary ---
Author Organization [facility] it Address [address] [place] [address] Care Team Providers Care Manager Case Name Role Phone Ale Ledezma Primary Care Provider [phone] Social History Tobacco Use Types Packs/Day Years [...] 2) 08/10/2003 Colorectal Cancer Screening: Colonoscopy 03/04/2022 Falls Risk Assessment 03/04/2022 Hepatitis C Screening 03/04/2022 Osteoporosis Screening (Bone Density Screening) 03/04/2022 Social Influencers of Health Screening 03/04/2022 Depression Screening 04/05/2024 COVID-19 Vaccine (2023-2 5 season) 2024 Influenza Vaccine (#1) 2024 02/08/2019 RSV Immunization Adult Patie nts (1 - [...] age to complete this topic Care Teams Manager Case Relationship Specialty Start Date End Date Ale Ledezma [address] [place] [address] Dr Qian [place] PCP - General Internal Medicine 04/13/11
--- OUTSIDE RECORDS SUMMARY | 2024-12-26 14:37 | XMS_ITS | Clinical Summary ---
Author Organization [facility] Address [address] [place] [phone] Phone Care Team Providers Care Starter Mechanic Name Role Phone Jeremy Yip MD Primary Care Provid er Allergies No known active allergies Medications hydroCHLOROthia zide (HYDRODIURIL) 25 MG tablet 3 Active metoprolol succinate (TOPROL-XL) 50 MG 24 hr tablet Take 1 tablet by mouth 2 (two) times a day. 3 Active simvastatin (ZOCOR) 10 MG tablet 3 Active aspirin 81 MG EC tablet Take 81 mg by mouth 3 (three) times a week on Wednesday, Wednesday, Wednesday. Active ferrous sulfate 325 mg (65 mg [place] iron) tablet Take 325 mg by mouth daily with breakfast. Active FREESTYLE LITE METER meter kit by Other route as needed. Use as instructed Active JARDIANCE 25 mg tablet Take 25 mg by mouth daily. 4 Active brimonidine (ALPHAGAN) 0.2 % ophthalmic solution Place 1 drop into each eye 2 (two) times a day. 4 Active cyanocobalamin, vitamin B-12, 250 MCG tabletIndicatio ns:Low vitamin B12 level Take 1 tablet (250 mcg total) by mouth daily. 30 tablet 11 4 Active FREESTYLE LITE Strp stripsIndicatio ns:Type 2 diabetes mellitus with peripheral neuropathy USE TO TEST BLOOD SUGAR ONCE EVERY MORNING 100 strip 3 5 Active FREESTYLE 28 gauge lancetsIndicati ons:Type 2 diabetes mellitus with peripheral neuropathy Use 1 lancet twice daily. 200 each 3 5 Active glipiZIDE (GLUCOTROL XL) 5 MG 24 hr tabletIndicatio ns:Type 2 diabetes mellitus with peripheral neuropathy TAKE 1 TO 2 TABLETS BY MOUTH 2 (TWO) TIMES DAILY WITH MEALS 360 tablet 1 5 Active metFORMIN (GLUCOPHAGE) 1000 MG tabletIndicatio ns:Type 2 diabetes mellitus with peripheral neuropathy Take 1 tablet by mouth twice daily with meals. 180 tablet 1 5 Active Active Problems Problem Noted Date Diagnosed Date Low vitamin B12 level 09/03/2023 Assessment & Plan (03/15/2024 1:15 PM EST): On OTC rx. Assessment & Plan (09/03/2023 1:46 PM EDT): Low normal B12, on metformin which can impair absorption. Will add 250 mcg daily. Type 2 diabetes mellitus with peripheral neuropa thy Assessment & Plan (03/15/2024 1:13 PM EST): Control had deteriorate, has improved with the addition of jardiance and improvement in diet. No frequent or severe hypoglycemia. Will be seeing PCP soon/having labs, asked for them to be cc'd here. If control remains sub-optimal, could consider a GPP4 inhibitor in addition to current rx. Could trial a GLP1, in addition to current medications, but would be concerned @ excessive weight loss given she is not overweight. She may ultimately need insulin to optimize control. Continue to work on eating healthy & keeping active.To call or send in BG with problems with glycemic control. Up to date w/ ophtho. Umalb/creat up to date, normal. BP under good control. Assessment & Plan (10/04/2023 5:02 PM EDT): Control has deteriorated based on labs, has improved with the addition of jardiance and improvement in diet. Some hypoglycemia, most often fasting. She is doing ok after most breakfasts & evening meals & spiking up significantly after mid-day meal. Advised to be cautious with carbohydrates mid day. Advised to add snack w/ carb/protein @ hs to avoid spike in glucose. Advised to shift 2nd dose of glipizide to before mid-day meal. If ongoing lows overnight will lower pm dose of glipizide from 2 to 1 tablet daily. Could trial a GLP1, in addition to current medications, but would be concerned @ excessive weight loss given she is not overweight. Continue to work on eating healthy & keeping active.To call or send in BG with problems with glycemic control. Assessment & Plan (09/20/2023 8:20 AM EDT): Placed the freestyle be pro sensor to the back of the patient's right arm. No bleeding or redness at the injection site. Reviewed care of the sensor. Reviewed that if the sensor falls off within 3 days to call the office and will place another one. If the sensor falls off after that period to bring in the sensor in a zip lock bag and we will download the data that is available on the sensor at that time. Will continue with current SMBG testing and current medication regimen. To call or message with any issues managing glucose levels. Assessment & Plan (09/03/2023 1:45 PM EDT): Control has deteriorated based on labs, with some improvement with the addition of jardiance and improvement in diet. No frequent or severe hypoglycemia. Reported SMBG readings are currently good despite HbA1c last month still being high. Will do a be pro 14 day CGM to better evaluate control/guide rx adjustments. Reviewed rationale & goals for control. Reviewed progressive nature of disease. Reviewed options to improve control with risks/benefits. Certainly could trial a GLP1, in addition to current medications, but would be concerned @ excessive weight loss given she is not overweight, however insulin might be preferred agent. Will hold off on further changed until after CGM trial. Continue to work on eating healthy & keeping active. To call or send in BG with problems with glycemic control. Up to date with ophtho. Foot & nail care good. BP under reasonable control. Assessment & Plan (09/02/2022 2:10 PM EDT): Control reasonable, not optimal. No frequent or severe hypoglycemia. Reviewed rationale & goals for control. Given she is close to target, would advise working on improving diet/activity tosee if can get control better w/o adding a 3rd medication. Continue to work on eating healthy & keeping active. To call or send in BG with problems with glycemic control. Up to date with ophtho. Foot & nail care good. Has labs done via PCP, would have results forwarded here. BP under reasonable control. Multinodular goiter Overview (09/02/2022): multiple small nodules w/o suspicious appearance; u/s stable 2019 - [facility] Assessment & Plan (03/15/2024 1:14 PM EST): Has had multiple small (subcm) nodules w/o suspicious appearance; u/s stable 2019 - [facility]. Has been euthyroid. Will continue to monitor exam. Assessment & Plan (10/04/2023 4:57 PM EDT): Has been euthyroid. Will continue to monitor. Assessment & Plan (09/03/2023 1:40 PM EDT): Remains euthyroid. Exam unremarkable. Would monitor TFTs q1-2 yrs. Assessment & Plan (09/02/2022 2:09 PM EDT): Will obtain report of most recent ultrasound & determine if needs ongoing surveillance. Exam unremarkable. Would include TFTs q1-2 yrs with routine labs from PCP. Hyperlipidemia Hypertension Encounters Date Type Department Care Team Description 10/10/2024 Refill [facility] [address] [place] [address] Jessie Burkett MD Medication Refill from Last 3 Months Family History Medical History Relation Comments Diabetes mellitus Maternal Aunt Diabetes mellitus Nephew Thyroid disease Neg Hx Relation Status Comments Maternal Aunt Alive Nephew Alive Social History Tobacco Use Types Packs/Day Years Used Date Smoking Tobacco: Never Passive Smoke Exposure: Past Smokeless Tobacco: Never Tobacco Cessation:Counseling Given: Not Answered Alcohol Use Standard Drinks/Week Comments Never 0 (1 standard drink = 0.6 oz pur e alcohol) Education Answer Date Recorded Are you interested in more education? Not on henri e 08/01/2022 Are you concerned about learning? Not on file 08/01/2022 No 08/01/2022 No 08/01/2022 Digital Access Answer Date Recorded No 09/01/2022 No 09/01/2022 Reliable internet access at home? Not on file 09/01/2022 Device with a working camera? Not on file Comments Unknown Sex and Gender Information Value Date Recorded Sex Assigned at Not on file Legal Sex Female 1:12 PM EDT Gender Identity Not on file Sexual Orientation Not on file Last Filed Vital Signs Vital Sign Reading Time Taken Comments Blood Pressure 102/64 03/15/2024 11:13 AM EST Pulse 83 03/15/2024 11:13 AM EST Temperature 36.7 C (98.1 F) 09/02/2022 10:07 AM EDT Respiratory Rate 18 09/02/2022 10:07 AM EDT Oxygen Saturation 99% 03/15/2024 11:13 AM EST Inhaled Oxygen Concentration - - Weight 56.8 kg (125 lb 3.2 oz) 03/15/2024 11:13 AM EST Height 165.1 cm (5' 5 ) 03/15/2024 11:13 AM EST Body Mass Index 20.83 03/15/2024 11:13 AM EST Plan of Treatment Upcoming Encounters Date Type Department Care Team (Late st Contact Info) Description 06/07/2025 10:40 AM EST Office Visit [facility] [address] [place] [phone] Jessie Burkett MD [address] [place] [phone] [email or web address] Health Maintenance Due Date Last Done Comments Adult Td,Tdap Booster 1953 HEMOGLOBIN A1C 1953 DEPRESSION SCREENING 1965 HEPATITIS C SCREENING 08/10/1971 LIPID PANEL 08/10/1971 PNEUMOCOCCAL VACCINES (50+ years) (1 of 2 - PCV) 1972 MAMMOGRAM 1993 COLOGUARD 1998 COLONOSCOPY 1998 COLORECTAL CANCER SCREENING 1998 FIT TEST 1998 FOBT 1998 SIGMOIDOSCOPY 1998 VIRTUAL COLONOSCOPY 1998 ZOSTER VACCINES (1 of 2) 08/10/2003 RSV VACCINE (1 - Risk 60-74 years 1-dose series) 2013 OSTEOPOROSIS SCREENING INITI AL (ONE-TIME) 2018 DIABETIC EYE EXAM 09/02/2022 URINE MICROALBUMIN/CREATININ E RATIO 09/02/2022 BLOOD PRESSURE 09/13/2024 03/15/2024 INFLUENZA VACCINE (#1) 2024 COVID-19 VACCINE (1 - 2023-2 5 season) 2024 CREATININE LEVEL 05/16/2025 05/16/2024, 08/10/2023, 10/01/2022 POTASSIUM LEVEL 05/16/2025 05/16/2024, 08/10/2023, 10/01/2022 SMOKING STATUS SCREENING (On ce After 26 Yrs) Completed 03/15/2024 HEPATITIS A VACCINES Aged Out No long er eligible based on patient's age to complete this topic HIB VACCINES Aged Out No longer eligi ble based on patient's age to complete this topic MENINGOCOCCAL VACCINES (ACWY) Aged Out No longer eligible based on patient's age to complete this topic MENINGOCOCCAL VACCINES (B) Aged Out N o longer eligible based on patient's age to complete this topic Medical Devices Not on file Procedures Procedure Name Priority Date/Time Associated Diagnosis Comments BASIC METABOLIC PANEL Routine 05/16/2024 11:30 AM EST Type 2 diabetes mellitus with peripheral neuropathy from Last 3 Months or Most Recently Relevant to Health Maintenance Results * Basic metabolic panel (05/16/2024 11:30 AM EST) Blood us Jessie Burkett MD LAB BLOOD ORDERABLES F inal Result [facility] [address] [place] [address] from Last 3 Months or Most Recently Relevant to Health Maintenance Insurance MEDICARE PART A & B FULL Member Subscriber Plan / Payer (Ef fective 2023-Present) Name:Charis Sebastian Relation to Subscriber:Self Name:Charis Sebastian Payer ID:Not on file Group ID:Not on file Type:Medicaid Address: [address] MEDICARE PART A & B HEALTH SAFETY NET FULL Member Subscriber Plan / Payer (Ef fective 2023-Present) Name:Charis Sebastian Relation to Subscriber:Self Name:Charis Sebastian Payer ID:Not on file Group ID:Not on file Type:Medicaid Address: [address] MED[address] PART A & B HEALTH SAFETY NET FULL Member Subscriber Plan / Payer (Ef fective 2023-Present) Name:Charis Sebastian Relation to Subscriber:Self Name:Charis Sebastian Payer ID:Not on file Group ID:Not on file Type:Medicaid Address: [address] MEDICARE PART A & B [facility] NET FULL B MEDICARE PART A & B [employer] SAFETY NET FULL Member Subscriber Plan / Payer (Ef fective 2023-Present) Name:Charis Sebastian Relation to Subscriber:Self Name:Charis Sebastian Payer ID:Not on file Group ID:Not on file Type:Medicaid Address: [address] MEDICARE PART A & B [employer] [facility] NET FULL Member Subscriber Plan / Payer (Ef fective 2023-Present) Name:Charis Sebastian Relation to Subscriber:Self Name:Charis Sebastian Payer ID:Not on file Group ID:Not on file Type:Medicaid Address: [address] [employer] Care Teams Starter Mechanic Relationship Specialty Start Date End Date Jeremy Yip MD [address] [place] [phone] PCP - General Internal Medicine 09/02/22 Additional Source Comments The information contained in this document represents components of the legal health record. It is not the complete legal health record.[facility]
== END 2024-12-26 12:17 | disposition home or self-care (01) ==
LOC: HO.HWS 11:47
PROVIDERS: PCP Internal Medicine; Visit Provider Obstetrics & Gynecology
DX: Z01.419 Encounter for gynecological examination (general) (routine) without abnormal findings (principal); N39.41 Urge incontinence
CPT/HCPCS: 99397; 99459

== ENCOUNTER → 2024-12-26 11:47 | Outpatient (BNVA) | payer MEDICARE, MEDICAID, SELFPAY | PROVIDERS: PCP Internal Medicine; Visit Provider Obstetrics & Gynecology | DX: Z01.419 Encounter for gynecological examination (general) (routine) without abnormal findings (principal); N39.41 Urge incontinence | CPT/HCPCS: 99397 ==

== ENCOUNTER 2025-02-23 11:36 | Emergency (ER) | payer MEDICARE, MEDICAID, SELFPAY ==
--- NOTE | ~2025-02-23 | US_ITS ---
EXAMINATION: US TRIPLEX LOWER EXTREMITY, LEFT CLINICAL INFORMATION: left ankle swelling. DVT COMPARISON: None available. TECHNIQUE: Color-flow triplex imaging with spectral analysis and compression Doppler were performed on the left lower extremity. FINDINGS: Respiratory variation, normal compression and augmented flow are noted throughout the left lower extremity. The visualized common femoral vein, greater saphenous vein, femoral vein, profunda femoral vein, popliteal vein and midcalf peroneal and posterior tibial venous segments show no evidence of deep venous thrombosis. Contralateral right common femoral vein is patent, compressible and with preserved respiratory variation. Incidental note is made of a benign appearing lymph node in the left groin measuring 1.2 x 0.4 x 0.8 cm. Targeted ultrasound was also performed at the location of the clinical concern/pain in the left lateral foot. Local parenchyma has edematous appearance. US/US venous duplex LE IMPRESSION: 1. No evidence of deep venous thrombosis involving the left lower extremity. 2. Local edema in the area of concern/pain in the left lateral foot. Electronically signed by: Kulwinder Ventura MD 02/23/2025 12:43 PM ARIA
--- NOTE | ~2025-02-23 | XR_ITS ---
EXAMINATIONS: 1. XR ANKLE 3 OR MORE VIEWS LEFT 2. XR FOOT 3 OR MORE VIEWS LEFT CLINICAL INFORMATION: swelling pain COMPARISON: None available. TECHNIQUE: AP, lateral, and mortise views of the left ankle. AP, lateral and oblique views of the left foot FINDINGS: Left ankle: Normal alignment. No fracture or destructive bone lesion. Joint spaces are preserved. Ankle mortise is maintained. Overlying soft tissues are unremarkable. Left foot: Mild hallux valgus. No dislocation. Early degenerative changes at the first metatarsophalangeal joint with joint space narrowing and subchondral sclerotic changes. No fracture or destructive bone lesion. Mild soft tissue swelling on the lateral aspect of the foot, without abnormal lucency. No radiopaque foreign body. XR/XR foot LT min 3V IMPRESSION: Left ankle: No fracture or destructive bone lesion. Left foot: No fracture or destructive bone lesion. Electronically signed by: Kulwinder Ventura MD 02/23/2025 12:51 PM EST
--- NOTE | ~2025-02-23 | XR_ITS ---
EXAMINATIONS: 1. XR ANKLE 3 OR MORE VIEWS LEFT 2. XR FOOT 3 OR MORE VIEWS LEFT CLINICAL INFORMATION: swelling pain COMPARISON: None available. TECHNIQUE: AP, lateral, and mortise views of the left ankle. AP, lateral and oblique views of the left foot FINDINGS: Left ankle: Normal alignment. No fracture or destructive bone lesion. Joint spaces are preserved. Ankle mortise is maintained. Overlying soft tissues are unremarkable. Left foot: Mild hallux valgus. No dislocation. Early degenerative changes at the first metatarsophalangeal joint with joint space narrowing and subchondral sclerotic changes. No fracture or destructive bone lesion. Mild soft tissue swelling on the lateral aspect of the foot, without abnormal lucency. No radiopaque foreign body. XR/XR ankle LT min 3V IMPRESSION: Left ankle: No fracture or destructive bone lesion. Left foot: No fracture or destructive bone lesion. Electronically signed by: Kulwinder Ventura MD 02/23/2025 12:51 PM EST
[2025-02-23 11:41] VITALS: BP 134/69; PULSE 79; RESP 16; TEMP 36.6; O2SAT 99; BMI 21.6
--- NOTE | 2025-02-23 11:47 | ED.GENADULT ---
HPI - General Adult General Chief complaint: Extremity Injury, Lower Stated complaint: Knee Leg Pain Time Seen by Provider: 02/23/25 12:29 Source: patient Mode of arrival: ambulatory Limitations: no limitations History of Present Illness ED Provider: Remy Brush HPI narrative: 69 yold female with pmh of HTN, DM, high cholesterol presents to the ED for left larteral ankle/foot swelling for a couple of days without any trauma. patient denies any chest pain, shortness of breath, redness, fever, or chills. Related Data Home Medications ?Medication ?Instructions ?Recorded ?Confirmed blood sugar diagnostic (FreeStyle #10 ea 05/26/24 05/26/24 Lite Strips) timolol 0.5 % eye drops 1 drp ophthalmic (eye) DAILY 07/27/24 07/27/24 Previous Rx's ?Medication ?Instructions ?Recorded glipizide 5 mg tablet 10 mg (2 x 5 mg) PO BID #60 tabs 08/24/23 metformin 1,000 mg tablet 1,000 mg PO BID #180 tabs 08/24/23 aspirin 81 mg tablet,delayed 81 mg PO DAILY #90 tabs 05/26/24 release (Adult Low Dose Aspirin) empagliflozin 25 mg tablet 25 mg PO DAILY #90 tabs 05/26/24 (Jardiance) metoprolol succinate 50 mg 50 mg PO BID #180 tabs 09/06/24 tablet,extended release 24 hr ferrous sulfate 325 mg (65 mg 325 mg PO DAILY #90 tabs 11/09/24 iron) tablet (FeroSul) hydrochlorothiazide 25 mg tablet 25 mg PO QAM #90 tabs 11/09/24 simvastatin 10 mg tablet 10 mg PO BEDTIME #90 tabs 11/09/24 acetaminophen 325 mg capsule 650 mg (2 x 325 mg) PO Q6H PRN 02/23/25 pain #28 caps Allergies Allergy/AdvReac Type Severity Reaction Status Date / Time No Known Allergies Allergy Verified 02/23/25 11:45 Review of Systems Review of Systems: left ankle pain Yes all other systems are reviewed and are negative PMFSH Past Medical History Medical History Decreased hearing of left ear Tachycardia Rheumatoid factor positive Allergic conjunctivitis Adult general medical exam Screening for diabetes mellitus Hyperlipidemia Type 2 diabetes mellitus with hyperglycemia Hypercholesterolemia with hypertriglyceridemia Benign essential HTN Surgical History History of colonoscopy (~08/20/17) History of partial hysterectomy History of eye surgery Family History Family History Father No problems noted. Mother No problems noted. Sister No problems noted. Social History Social History Household Members: Family Housing: House Alcohol intake: never Patient Tobacco Use Status: Never used Tobacco e-Cigarette/Vaping Use: Never Used Second Hand Smoke Exposure: No Advance Directives: No Advance Directives Information Provided: Yes service: No Current occupational status: retired Cognitive needs: No Hearing needs: No Vision needs: No Physical Exam ED Vital Signs: Vital Signs - 24 hr 02/23/25 11:41 Temperature 98 F Pulse Rate 79 Respiratory Rate 16 Blood Pressure 134/69 Pulse Oximetry 99 Oxygen Delivery Method Room Air BMI result Body Mass Index 21.6 Const General: cooperative, healthy appearing, comfortable, no acute distress, well developed, alert, awake and Physically active Orientation/consciousness: patient oriented x3 HENMT Head: Yes normal to inspection, Yes No palpable skull fracture present, Yes normocephalic and Yes atraumatic Eyes General: appearance normal, both eyes and all related structures Neck Neck: Yes normal visual inspection, Yes full ROM, Yes no lymphadenopathy, Yes no meningeal signs, Yes trachea midline, Yes supple, No anterior neck swelling and No tender Chest Chest palpation & inspection: normal inspection of the chest and normal palpation of entire chest wall Resp Effort & Inspection: normal respiratory effort and able to speak in complete sentences Auscultation: clear to auscultation bilaterally Cardio Jugular venous distension: no JVD Heart sounds: S1 normal heart sound present and S2 normal heart sound present GI Inspection: Yes normal to inspection Palpation (GI): Soft to palpation, not firm, nontender, no guarding and not rigid General: Yes no CVA tenderness Back/Spine/Pelvis Back: no CVA tenderness and No back tenderness Skin General skin exam: no rashes or lesions noted, elasticity normal and turgor normal Neuro General: patient oriented x3, gait normal, tone normal, moves all extremities, Normal light touch and pain sensation, no meningeal signs, no focal motor deficits, CN's II-XI intact bilaterally and normal sensation to monofilament Extrem General: Yes normal to inspection, Yes full ROM and Yes capillary refill normal Ankle/foot/toe images:  1. positive for slight swelling and tenderness on palpation. negative for erythema, fluctulance, ecchymosis, deformity, crepitus, or open wounds. rest of extremity is normal. motor, neuro, and vasscula exam is intact. Psych Appearance: grossly normal, well kempt and not disheveled Course Course Course Narrative: RME; Presents to the ED for left ankle swelling and pain since yesterday without any trauma. Physical exam positive for left lateral ankle swelling. Vascular, motor, and nuero exam is intact. xray and ultrasound ordere. Medical Decision Making Medical Decision Making [facility] Narrative: 69 yold male presents to the ED for left ankle/foot slight swelling and pain without any trauma. History physical exam does not indicate cellulitis, necrotizing fasciitis, osteomyelitis, compartment syndrome, arterial occlusion, diabetic foot, any other life-threatening etiology. Ultrasound negative DVT. Labs reassuring. X-ray negative for any fracture or dislocation. Not suspecting osteomyelitis, DVT, arterial occlusion, necrotizing fasciitis, osteomyelitis, compartment syndrome, cellulilits, or any other life-threatening etiology. Patient explained worrisome signs informed return to the ED immediately. Differential Diagnosis Differential Diagnoses: The differential diagnosis associated with the presentation includes (DVT, cellulitis, fracture) Lab Data [facility] Lab Attestation statement: I reviewed the patient's lab results. 02/23/25 11:59 02/23/25 11:59 Labs: Lab Results 02/23/25 Range/Units 11:59 WBC 7.8 (4.8-10.8) X10*3/uL RBC 4.73 (4.20-5.50) X10*6/uL Hgb 14.1 (12.0-16.0) g/dl Hct 41.1 (37.0-47.0) % MCV 86.9 (80.0-98.0) fL MCH 29.8 (27.0-33.0) pg MCHC 34.3 (31.0-35.0) g/dl RDW 12.9 (11.0-16.0) % Plt Count 275 (160-400) X10*3/uL MPV 9.6 (9.4-12.3) fL Immature Gran % (Auto) 0.3 (0.0-0.4) % Neut % (Auto) 63.4 (45-73) % Lymph % (Auto) 25.8 (20-40) % [place] % (Auto) 9.5 (2-11) % Eos % (Auto) 0.6 (0-4) % Baso % (Auto) 0.4 (0-2) % Lymph # (Auto) 2.0 (1.2-4.9) X10*3/uL [place] # (Auto) 0.7 (0.1-1.2) X10*3/uL Eos # (Auto) 0.1 (0.0-0.4) X10*3/uL Baso # (Auto) 0.0 (0.0-0.2) X10*3/uL Abs Immat Gran (auto) 0.02 (0.00-0.03) X10*3/uL Absolute Neuts (auto) 4.9 (2.0-8.3) x10*3/uL Absolute Nucleated RBC 0.000 (0.0-0.012) X10*3/uL Nucleated RBC % (auto) 0.0 (0.0-0.2) /100WBC PT 12.4 (11.2-13.5) SEC INR 1.0 (0.9-1.1) APTT 29.8 (26.7-34.1) SEC Sodium 142 (135-145) mmol/L Potassium 3.6 (3.3-5.1) mmol/L Chloride 102 (96-108) mmol/L Carbon Dioxide 28 (22-29) mmol/L Anion Gap 16 (12-20) BUN 24 H (9-16) mg/dL Creatinine 0.98 (0.5-1.4) mg/dL Estim Creat Clear Calc 45.4 Estimated GFR 56 Random Glucose 140 H (60-115) mg/dL Uric Acid 7.3 H (2.4-5.7) mg/dL Calcium 10.2 (8.4-10.2) mg/dL Total Bilirubin 0.7 (0.0-1.0) mg/dL AST 20 (5-31) U/L ALT 13 (0-31) U/L Alkaline Phosphatase 83 (39-117) U/L Total Protein 8.2 H (6.5-8.0) g/dL Albumin 4.7 (3.5-5.0) g/dL Independent Interpretation I performed an independent interpretation of an: Plain X-Ray Radiology Impression Discussion of test interpretation with radiology: I have reviewed the radiologist's reading. Independent Historian Clinical information obtained from an independent historian. History obtained from or confirmed by: Other (patient) Prescription Management I considered prescription management with: Pain Medication Discharge Plan Discharge Clinical Impression: Swelling of ankle, Osteoarthritis Patient Disposition: Home, Self-Care Instructions: Osteoarthritis (ED), Leg Edema (ED) Additional Instructions: Your labs and images came back reassuring. Recommend follow up with primary care provider. Return to the ED for any worsening swelling, calf pain, chest pain, shortness of breath, weakness, dizziness, bluish black discoloration, red streaks, fever, chills, or any other concerning symptoms. Ordering Physician: Remy Brush Date of Service: 02/23/25 Procedure(s): XR ankle LT min 3V Accession Number(s): [id number] cc: Remy Brush; Jeremy Yip MD~ Reason for Exam: swelling pain EXAMINATIONS: 1. XR ANKLE 3 OR MORE VIEWS LEFT 2. XR FOOT 3 OR MORE VIEWS LEFT CLINICAL INFORMATION: swelling pain COMPARISON: None available. TECHNIQUE: AP, lateral, and mortise views of the left ankle. AP, lateral and oblique views of the left foot FINDINGS: Left ankle: Normal alignment. No fracture or destructive bone lesion. Joint spaces are preserved. Ankle mortise is maintained. Overlying soft tissues are unremarkable. Left foot: Mild hallux valgus. No dislocation. Early degenerative changes at the first metatarsophalangeal joint with joint space narrowing and subchondral sclerotic changes. No fracture or destructive bone lesion. Mild soft tissue swelling on the lateral aspect of the foot, without abnormal lucency. No radiopaque foreign body. XR/XR ankle LT min 3V IMPRESSION: Left ankle: No fracture or destructive bone lesion. Left foot: No fracture or destructive bone lesion. Electronically signed by: Kulwinder Ventura MD 02/23/2025 12:51 PM [facility] Ordering Physician: Remy Brush Date of Service: 02/23/25 Procedure(s): US venous duplex LE LT Accession Number(s): [id number] cc: Remy Brush; Jeremy Yip MD~ Reason for Exam: left ankle swelling. DVT EXAMINATION: US TRIPLEX LOWER EXTREMITY, LEFT CLINICAL INFORMATION: left ankle swelling. DVT COMPARISON: None available. TECHNIQUE: Color-flow triplex imaging with spectral analysis and compression Doppler were performed on the left lower extremity. FINDINGS: Respiratory variation, normal compression and augmented flow are noted throughout the left lower extremity. The visualized common femoral vein, greater saphenous vein, femoral vein, profunda femoral vein, popliteal vein and midcalf peroneal and posterior tibial venous segments show no evidence of deep venous thrombosis. Contralateral right common femoral vein is patent, compressible and with preserved respiratory variation. Incidental note is made of a benign appearing lymph node in the left groin measuring 1.2 x 0.4 x 0.8 cm. Targeted ultrasound was also performed at the location of the clinical concern/pain in the left lateral foot. Local parenchyma has edematous appearance. US/US venous duplex LE LT IMPRESSION: 1. No evidence of deep venous thrombosis involving the left lower extremity. 2. Local edema in the area of concern/pain in the left lateral foot. Electronically signed by: Kulwinder Ventura MD 02/23/2025 12:43 PM [facility] Prescriptions: New acetaminophen 325 mg capsule 650 mg PO Q6H PRN (Reason: pain) Qty: 28 0RF No Action metoprolol succinate 50 mg tablet extended release 24 hr 50 mg PO BID Qty: 180 1RF ferrous sulfate [FeroSul] 325 mg (65 mg iron) tablet 325 mg PO DAILY Qty: 90 3RF simvastatin 10 mg tablet 10 mg PO BEDTIME Qty: 90 1RF hydrochlorothiazide 25 mg tablet 25 mg PO QAM Qty: 90 1RF metformin 1,000 mg tablet 1,000 mg PO BID Qty: 180 1RF glipizide 5 mg tablet 10 mg PO BID Qty: 60 0RF (DME) FreeStyle Lite Strips Strip See Rx Instructions .ROUTE QAM Qty: 10 Rx Instructions: As directed aspirin [Adult Low Dose Aspirin] 81 mg tablet,delayed release (DR/EC) 81 mg PO DAILY Qty: 90 1RF Jardiance 25 mg tablet 25 mg PO DAILY Qty: 90 1RF timolol 0.5 % drops 1 drp ophthalmic (eye) DAILY Referrals: Jeremy Yip MD [Primary Care Provider, Internal Medicine] - 2 days Referral Note: Ankle pain edema Clinical Impression: Swelling of ankle; Osteoarthritis Interventions: ED Discharge Assessment Last Done: 02/23/25 15:12 Discharge Date/Time: 02/23/25 15:14 Print Language: Maori
[2025-02-23 12:03] LABS: MANUAL DIFF FLAG NO
[2025-02-23 12:06] LABS: Hematocrit 41.1 % (37.0-47.0); Hemoglobin 14.1 g/dl (12.0-16.0); Imm Gran Abs Auto 0.02 X10*3/uL (0.00-0.03); Imm Gran Pct Auto 0.3 % (0.0-0.4); Lymphocytes Absolute Auto 2.0 X10*3/uL (1.2-4.9); Mean Corpuscular HGB Conc 34.3 g/dl (31.0-35.0); Mean Corpuscular Hemoglobin 29.8 pg (27.0-33.0); Mean Corpuscular Volume 86.9 fL (80.0-98.0); NRBC Abs Auto 0.000 X10*3/uL (0.0-0.012); NRBC Pct Auto 0.0 /100WBC (0.0-0.2); Platelet Count 275 X10*3/uL (160-400); Red Blood Count 4.73 X10*6/uL (4.20-5.50); White Blood Count 7.8 X10*3/uL (4.8-10.8)
[2025-02-23 12:23] LABS: Alanine Aminotransferase 13 U/L (0-31); Albumin Level 4.7 g/dL (3.5-5.0); Alkaline Phosphatase 83 U/L (39-117); Anion Gap 16 (12-20); Aspartate Amino Transferase 20 U/L (5-31); Blood Urea Nitrogen 24 mg/dL (9-16); Calcium 10.2 mg/dL (8.4-10.2); Carbon Dioxide 28 mmol/L (22-29); Chloride 102 mmol/L (96-108); Creatinine Clr Calc Pharmacy 45.4; Estimated Glomerular Filt Rate 56; Potassium 3.6 mmol/L (3.3-5.1); Sodium 142 mmol/L (135-145); Total Protein 8.2 g/dL (6.5-8.0)
[2025-02-23 12:27] LABS: INTERNATIONAL NORM RATIO 1.0 (0.9-1.1); Prothrombin Time 12.4 SEC (11.2-13.5)
[2025-02-23 12:30] LABS: Partial Thromboplastin Time 29.8 SEC (26.7-34.1)
--- OUTSIDE RECORDS SUMMARY | 2025-02-23 12:37 | XMS_ITS | Clinical Summary ---
Author Organization [facility] Address [address] [place] [id number] Phone Care Team Providers Care Starch Cooker Name Role Phone Jeremy Yip MD Primary [...] Active ferrous sulfate 325 mg (65 mg emmonak iron) tablet Take 325 mg by mouth [...] with routine labs from PCP. Hyperlipidemia Hypertension Family History Medical History Relation Comments Diabetes [...] 10:40 AM EST Office Visit [facility] [address] [place] [address] Jessie Burkett MD [address] [place] [phone] 10/26/2025 10:00 AM EDT Office Visit [facility] [address] [place] [address] Jessie Burkett MD [address] [place] [phone] Health Maintenance Due Date Last Done Comments Adult Td,Tdap Booster 1953 HEMOGLOBIN A1C 1953 DEPRESSION SCREENING 1965 HEPATITIS C SCREENING 08/10/1971 LIPID PANEL 08/10/1971 PNEUMOCOCCAL VACCINES (50+ years) (1 of 2 - PCV) 1972 MAMMOGRAM 1993 COLOGUARD 1998 COLONOSCOPY 1998 COLORECTAL CANCER SCREENING 1998 FIT TEST 1998 FOBT 1998 SIGMOIDOSCOPY 1998 VIRTUAL COLONOSCOPY 1998 RSV VACCINE (1 - Risk 50-74 years 1-dose series) 08/10/2003 ZOSTER VACCINES (1 of 2) 08/10/2003 OSTEOPOROSIS SCREENING INITI AL (ONE-TIME) 2018 DIABETIC EYE EXAM 09/02/2022 URINE MICROALBUMIN/CREATININ E RATIO 09/02/2022 BLOOD PRESSURE 09/13/2024 03/15/2024 INFLUENZA VACCINE (#1) 2024 COVID-19 VACCINE (1 - 2024-2 6 season) 2024 CREATININE LEVEL 05/16/2025 05/16/2024, 08/10/2023, [...] Date/Time Associated Diagnosis Comments BASIC METABOLIC PANEL (BMP) Routine 05/16/2024 11:30 AM EST Type 2 diabetes mellitus with peripheral neuropathy from Last 3 Months or Most Recently Relevant to Health Maintenance Results * Basic metabolic panel (05/16/2024 11:30 AM EST) Blood Jessie Burkett MD LAB BLOOD BKR ORDERABL ES Final Result [address] [address] from Last 3 Months or Most Recently Relevant to Health Maintenance Insurance MEDICARE PART A & B [facility] MEDICARE PART A & B HEALTH SAFETY NET FULL MEDICARE PART A & B [employer] S[employer] NET [facility] A & B [facility] MEDICARE PART A & B Member Subscriber Plan / Payer (Ef fective 2018-Present) Name:Charis Sebastian Member ID:[id number] Relation to Subscriber:Self Name:Charis Sebastian Subscriber ID:[id number] Payer ID:[id number] Group ID:Not on file Type:Medicare [facility] [address] [place] [address] [facility] FULL MEDICARE PART A & B HEALTH SAFETY NET FULL Member Subscriber Plan / Payer (Ef fective 2023-Present) Name:Charis Sebastian Relation to Subscriber:Self Name:Charis Sebastian Payer ID:Not on file Group ID:Not on file Type:Medicaid Address: [address] [employer] Care Teams Starch Cooker Relationship Specialty Start Date End Date Jeremy Yip MD [address] [place] [phone] PCP - General Internal Medicine 09/02/22 Additional Source Comments The information contained in this document represents components of the legal health record. It is not the complete legal health record.[facility]
--- OUTSIDE RECORDS SUMMARY | 2025-02-23 12:38 | XMS_ITS | Data Portability ---
Author Organization [place] - [facility], Allergy Address [address] [address] Care Team Providers Care Airveyor Operator Name Role Phone ALEXX SALAZAR Primary Care Provider ANGELINA GUERRERO Referring Provider Assessment Encounter Date Assessment Date Assessment LastModified by Organization Details LastModified Time 02/13/2025 02/13/2025 Follow up with referring provider. [email or web address] Not available 02/13/2025 15:18:51 02/13/2025 02/13/2025 Bilateral severe cerumen impaction, cleaned today under the binocular microscope. Patient noted improvement in the hearing following disimpaction. Patient was subsequently sent for audiometric testing. This showed mild asymmetric high-frequency sensorineural hearing loss mostly consistent with presbycusis. There was a significant asymmetry in the speech discrimination in the left ear compared to the right which is not explained by her audiometric testing. Recommend MRI scan of the brain and internal auditory canals to rule out retrocochlear pathology as the cause of this asymmetry. We will order this and contact her through the portal with these results. [email or web address] Not available 02/13/2025 15:56:20 Plan of Treatment Reminders Order Date Submit Date Provider Last Modified By Organization Details Last Modified Time Details Appointments None recorded. Lab None recorded. Referral None recorded. Procedures None recorded. Surgeries None recorded. Imaging MRI, brain + internal auditory canal, w/wo contrast - MRI, BRAIN + INTERNAL AUDITORY CANAL, W/WO CONTRAST 2024 025 [email or web address] [facility] ([facility] [address] [facility] [place], [address], 5 16:35:49 Medication Orders None recorded. Patient TargetsNo targets recorded. Patient Instructions Encounter Date Encounter Id Patient Instructions Last Modified By Organization Details Last Modified Time 02/13/2025 [id number] - Follow up afte r the hearing test for further evaluation. - Monitor ear health and report any new symptoms or concerns. [email or web address] Not available 02/13/2025 14:54:26 Please note: Parts of this encounter note have been generated by AI based on audio conversation. Patient consent was required prior to utilizing this technology. Content review was required prior to finalizing the note. Not available 02/13/2025 14:54:26 Reason for Referral None Reported. Results Created Date Observation Date Name Description Value Unit Range Abnormal Flag Note LastModifiedBy Organization Detail LastModifiedTime 02/14/20 25 audio gram No observ ation record ed. BARCODE Not Available 2024 18:17:44 Result Notes None recorded. Problems Name Problem SNOMED Code Status Onset Date Resolution Date Notes Provider Name and Address Organization Details Recorded Time Impacted cerumen of bilateral ears 08198429495 28655 Active 2016 Impacted cerumen, bilateral ; Note: Date Diagnosed : 08/04/2016 10:37 AM (H61.23) KEO PHAM MD [address] [place] [address], [place], [address] , [facility] 5 14:55:19 Sensorine ural hearing loss of bilateral ears 591023976 Active 2016 Sensorine ural hearing loss, bilateral ; Note: Date Diagnosed : 08/04/2016 9:58 AM (H90.3) Not Available [facility] 02:48:53 Sensorine ural hearing loss of bilateral ears 330542763 Active 2024 JORDIN PUENTES [address] [place] [address], [place], [address] , [facility] 5 15:19:26 Problem Notes None recorded. Procedures Surgical History Date Name Laterality Status Provider Name and Address Organization Details Recorded Time 02/14/20 25 Comp Audio with Tymps - 07313 & 09654 completed JORDIN PUENTES [address] [facility],[place] [address], [place], [address], [place] - [facility] 02/13/2025 15:18:51 02/14/20 25 Cerumen removal with microscope bilateral completed KEO PHAM MD 100 [facility],[address], [address], [facility] - [facility] 02/13/2025 14:55:11 hysterectomy completed Reyna Solorio [place] - [facility] 02/13/2025 14:51:23 Eye Surgery completed Reyna Solorio [facility] 02/13/2025 14:51:31 Imaging Results None recorded. Procedure Notes None recorded. Medical Equipment None Reported. Allergies No known drug allergies Medications Name Sig Start Date Stop Date Status Note LastModified by Organization Details LastModified Time latanopro st 0.005 % eye drops INSTILL 1 DROP IN BOTH EYES AT BEDTIME 02/13 completed Not Available Not Available Not Available metformin 500 mg tablet 02/13 completed Medicati on ID: [id number] D uration Value: 30 Brand Name: metformi n Send Method: E-Prescr ibed Sub s Allowed: subs OK Speci al Instruct ion: TAKE 1 TABLET BY MOUTH TWICE A DAY Medi cationGe nericNam e: metformi n Not Available Not Available Not Available metoprolo l succinate ER 50 mg tablet,ex tended release 24 hr 50 MG ORALLY 2 TIMES A DAY active Not Available Not Available No t Available lisinopri l 20 mg tablet 02/13 completed Medicati on ID: [id number] D uration Value: 30 Brand Name: lisinopr il Send Method: E-Prescr ibed Sub s Allowed: subs OK Speci al Instruct ion: TAKE 1 TABLET BY MOUTH DAILY Me dication GenericN edwin: lisinopr il Not Available Not Available Not Available simvastat in 10 mg tablet active Not Available Not Available Not Available glipizide ER 5 mg tablet, extended release 24 hr TAKE 1 TO 2 TABLETS BY MOUTH 2 (TWO) TIMES DAILY WITH MEALS active Not Available Not Available No t Available cyanocoba terrell (vit B-12) 250 mcg tablet TAKE 1 TABLET BY MOUTH DAILY 02/13 completed Not Available Not Available Not Available aspirin 81 mg tablet,de layed release TAKE 1 TABLET BY MOUTH ONCE DAILY 02/13 completed Not Available Not Available Not Available prednisol one acetate 1 % eye drops,chela pension SHAKE LIQUID AND INSTILL 1 DROP IN BOTH EYES FOUR TIMES DAILY 02/13 completed Not Available Not Available Not Available cephalexi n 500 mg capsule TAKE 1 CAPSULE BY MOUTH TWICE A DAY FOR 7 DAYS 02/13 completed Not Available Not Available Not Available ferrous sulfate 325 mg (65 mg iron) tablet Take 1 tablet every day by oral route. active Not Available Not Available No t Available metformin 1,000 mg tablet active Not Available Not Available Not Available tobramyci n 0.3 % eye drops 02/13 completed Not Available Not Available Not Available brimonidi ne 0.2 % eye drops INSTILL 1 DROP IN BOTH EYES TWICE DAILY 12 HOURS APART 02/13 completed Not Available Not Available Not Available hydrochlo rothiazid e 25 mg tablet active Not Available Not Available Not Available timolol maleate 0.5 % eye drops 1 DROP INTO BOTH EYES EVERY MORNING 02/13 completed Not Available Not Available Not Available timolol maleate 0.5 % eye gel forming solution INSTILL 1 DROP IN BOTH EYES EVERY MORNING 02/13 completed Not Available Not Available Not Available glipizide 5 mg tablet TAKE 2 TABLETS BY MOUTH TWICE A DAY 02/13 completed Not Available Not Available Not Available olopatadi ne 0.2 % eye drops 02/13 completed Not Available Not Available Not Available FreeStyle Lite Strips USE TO TEST BLOOD SUGAR ONCE EVERY MORNING 02/13 completed Not Available Not Available Not Available Jardiance 25 mg tablet active Not Available Not Available Not Available Vitals None Recorded Social History None recorded. Functional Status None recorded. Mental Status None recorded. Family History Nothing Reported. Medical History Condition Response Allergies/Hayfever Y Diabetes Y Hyperlipidemia Y Hearing Loss Y Hypertension Y High Cholesterol Y Gynecological HistoryNo gynecological history recorded. Obstetrics History GPAL:G 0 P 0 0 0 0 Past Encounters Encounter ID Performer Location Encounter Start Date Encounter Closed Date Diagnosis/Indication Diagnosis SNOMED-CT Code Diagnosis ICD10 Code Diagnosis IMO Codes Diagnosis Note [id number] KEO PHAM MD [facility] [address] [address] 02/13/2025 14:30:24 02/13/2025 16:35:49 Impacted cerumen of bilateral ears [id number] 463800 H61.23 511615 Sensorineu ral hearing loss of bilateral ears 152987228 H90.3 [id number] Audiologic al evaluation results: Normal sloping to moderately -severe high frequency sensorineu ral hearing loss with bilaterall y. Word recognitio n was excellent in the right ear and fair in the left ear. Tympanomet ry: Right Ear:Type A Left Ear:Type A [id number] JORDIN PUENTES [facility] [address] [address] 02/13/2025 15:18:40 02/14/2025 09:14:06 Sensorineural hearing loss of bilateral ears 151237782 H90.3 [id number] Audiologic al evaluation results: Normal sloping to moderately -severe high frequency sensorineu ral hearing loss with bilaterall y. Word recognitio n was excellent in the right ear and fair in the left ear. Tympanomet ry: Right Ear:Type A Left Ear:Type A Health Concerns Section Related Observation LastModified by Organization Detai ls LastModified Time None Recorded Concern Status LastModified by Organization Details LastModified Time None Recorded Advance Directives Directive None Recorded Payers Insurance Date Sequence Insurance Name Policy Number Policy Alcantara Covered Member ID Alcantara Member ID Guarantor Name 02/13/2025 2 [place] [facility] Charis Sebastian [id number] Charis Sebastian 02/13/2025 1 [place]IC[place] B-[place]: [employer] Charis Sebastian [id number] Charis Sebastian Notes Date Note Type Note Provider Name and Address Organization Details Recorded Time 02/13/2025 text/html Charis Sebastian is a 69-year-old female who presents with concerns regarding her hearing and ear health. She reports that her left ear has been worse than her right ear for approximately two years. She associates the onset of symptoms with a flight experience where her ears became plugged and did not fully resolve despite attempts to pop them. She describes the sensation as mild and suspects that her ears may need cleaning. KEO PHAM MD [address] [facility],[place] [address], [place], [address], [place] - [facility] 02/13/2025 15:56:44 02/13/2025 text/html Audiological Evaluation HPIReported by PatientHearing LossFor hearing loss perceived, patient reportsnone (no loss of audibility). JORDIN PUENTES [address] [facility],[place] [address], [place], [address], [place] - [facility] 02/13/2025 15:21:49 OBGyn Episode No OBEpisode recorded.
--- OUTSIDE RECORDS SUMMARY | 2025-02-23 12:38 | XMS_ITS | Clinical Summary ---
Author Organization [facility] ity Address [address] [place] [address] Care Team Providers Care Sales Representative Womens Health Name Role Phone Ale Ledezma Primary Care Provider [phone] Social History Tobacco Use Types Packs/Day Years Used Date Smoking Tobacco: Never Assessed Comments Unknown Sex and Gender Information Value Date Recorded Sex Assigned at Not on file Legal Sex Female 1:08 AM EST Gender Identity Not on file Sexual Orientation Not on file Plan of Treatment Health Maintenance Due Date Last Done Comments Breast Cancer Screening 1955 Colorectal Cancer Screening: Colonoscopy 1955 DTaP,Tdap,and Td Vaccines (1 - Tdap) 1972 Pneumococcal Vaccine: 50+ Ye ars (1 of 1 - PCV) 08/10/2003 Zoster Vaccines (1 of 2) 08/10/2003 Falls Risk Assessment 03/04/2022 Hepatitis C Screening 03/04/2022 Osteoporosis Screening (Bone Density Screening) 03/04/2022 Social Influencers of Health Screening 03/04/2022 Depression Screening 04/05/2024 COVID-19 Vaccine ( - 2024-2 6 season) 2024 Influenza Vaccine (#1) 2024 02/08/2019 [...] age to complete this topic Care Teams Sales Representative Womens Health Relationship Specialty Start Date End Date Ale Ledezma [address] [place] [address] Dr Qian [place] PCP - General Internal Medicine 04/13/11
--- OUTSIDE RECORDS SUMMARY | 2025-02-23 12:38 | XMS_ITS | Continuity of Care Document ---
Author Organization [place] - [facility], [facility] Address [address] [place] [address] Care Team Providers Care Angle Roll Operator Name Role Phone ALEXX SALAZAR Primary Care Provider ANGELINA GUERRERO Referring Provider [phone] Assessment Encounter Date Assessment Date Assessment LastModified by Organization Details LastModified Time 02/13/2025 02/13/2025 Bilateral severe cerumen impaction, cleaned [...] her through the portal with these results. [email or web address] Not available 02/13/2025 15:56:20 Plan of Treatment Reminders Order Date Submit Date Provider Last Modified By Organization Details Last Modified Time Details Appointments None recorded. Lab None recorded. Referral None recorded. Procedures None recorded. Surgeries None recorded. Imaging MRI, brain + internal auditory canal, w/wo contrast - MRI, BRAIN + INTERNAL AUDITORY CANAL, W/WO CONTRAST 2024 025 [email or web address] [facility] ([facility]), [address] [place], [address], 16:35:49 Medication Orders None recorded. Patient TargetsNo targets recorded. Patient Instructions Encounter Date Encounter Id Patient Instructions Last Modified By Organization Details Last Modified Time 02/13/2025 [id number] - Follow up afte r the hearing test for further evaluation. - Monitor ear health and report any new symptoms or concerns. [email or web address] Not available 02/13/2025 14:54:26 Please note: Parts of this encounter note have been generated by AI based on audio conversation. Patient consent was required prior to utilizing this technology. Content review was required prior to finalizing the note. [email or web address] Not available 02/13/2025 14:54:26 Reason for Referral None Reported. Results Created Date Observation Date Name Description Value Unit Range Abnormal Flag Note LastModifiedBy Organization Detail LastModifiedTime 02/14/20 audio gram No observ ation record ed. BARCODE Not Available 2024 18:17:44 Result Notes None recorded. Problems Name Problem SNOMED Code Status Onset Date Resolution Date Notes Provider Name and Address Organization Details Recorded Time Impacted cerumen of bilateral ears [id number] 47463 Active 2016 Impacted cerumen, bilateral ; Note: Date Diagnosed : 08/04/2016 10:37 AM (H61.23) KEO PHAM MD [address], [address] , [facility] 5 14:55:19 Sensorine ural hearing loss of bilateral ears 634792385 Active 2016 Sensorine ural hearing loss, bilateral ; Note: Date Diagnosed : 08/04/2016 9:58 AM (H90.3) Not Available [facility] 4 02:48:53 Sensorine ural hearing loss of bilateral ears 946160343 Active 2024 JORDIN PUENTES [address] [place] [address],[address], [address] , [facility] 5 15:19:26 Problem Notes None recorded. Procedures Surgical History Date Name Laterality Status Provider Name and Address Organization Details Recorded Time 02/14/20 25 Comp Audio with Tymps - 11726 & 66794 completed JORDIN PUENTES 100 [facility],[place] [address], [place], [address], [place] - [facility] 02/13/2025 15:18:51 02/14/20 25 Cerumen removal with microscope bilateral completed KEO PHAM MD [address] [place] [address], [place], [address], [place] - [facility] 02/13/2025 14:55:11 hysterectomy completed Reyna Solorio [place] - [facility] 02/13/2025 14:51:23 Eye Surgery completed Reyna Solorio [place] - [facility] 02/13/2025 14:51:31 Imaging Results None recorded. Procedure [...] mg tablet 02/13 completed Medicati on ID: [id number] D uration Value: 30 Brand Name: metformi [...] mg tablet 02/13 completed Medicati on ID: [id number] D uration Value: 30 Brand Name: lisinopr [...] History Nothing Reported. Medical History Condition Response Diabetes Y Allergies/Hayfever Y Hyperlipidemia Y Hearing Loss Y Hypertension Y High Cholesterol Y Gynecological HistoryNo gynecological history recorded. Obstetrics History GPAL:G 0 P 0 0 0 0 Past Encounters Encounter ID Performer Location Encounter Start Date Encounter Closed Date Diagnosis/Indication Diagnosis SNOMED-CT Code Diagnosis ICD10 Code Diagnosis IMO Codes Diagnosis Note [id number] KEO PHAM MD [facility] [address] [address] 02/13/2025 14:30:24 02/13/2025 16:35:49 Impacted cerumen of bilateral ears [id number] 426529 H61.23 841507 Sensorineu ral hearing loss of bilateral ears 521950758 H90.3 16173512 Audiologic al evaluation results: Normal sloping to moderately -severe high frequency sensorineu ral hearing loss with bilaterall y. Word recognitio n was excellent in the right ear and fair in the left ear. Tympanomet ry: Right Ear:Type A Left Ear:Type A [id number] JORDIN PUENTES [facility] [address] [address] 02/13/2025 15:18:40 02/14/2025 09:14:06 Sensorineural hearing loss of bilateral ears 531510185 H90.3 [id number] Audiologic al evaluation results: Normal sloping to [...] by Organization Details LastModified Time None Recorded Payers Encounter Date Sequence Insurance Name Policy Number Policy Alcantara Covered Member ID Alcantara Member ID Guarantor Name 02/13/2025 2 [place] [facility] Charis Sebastian [id number] Charis Sebastian 02/13/2025 1 MEDIC[place] B-[place] [facility] Charis Sebastian [id number] Charis Sebastian Notes Date Note Type Note [...] ears may need cleaning. KEO PHAM MD [address] [place] [address], [address], [facility] 02/13/2025 15:56:44 02/13/2025 text/html Audiological Evaluation HPIReported by PatientHearing LossFor hearing loss perceived, patient reportsnone (no loss of audibility). VITA PERRY, [facility] [address] [address], [place], [address], [place] - [facility] 02/13/2025 15:21:49 OBGyn Episode No OBEpisode recorded.
--- OUTSIDE RECORDS SUMMARY | 2025-02-23 12:38 | XMS_ITS | Continuity of Care Document ---
Author Organization [place] - [facility], [facility] Address [address] [place] [address] Care Team Providers Care Wheat Farmer Name Role Phone MARIE, KARTIK Primary Care Provider ANGELINA GUERRERO Referring Provider Assessment Encounter Date Assessment Date Assessment LastModified by Organization Details LastModified Time 02/13/2025 02/13/2025 Follow up with referring provider. [email or web address] Not available 02/13/2025 15:18:51 Plan of Treatment Reminders Order Date Submit Date Provider Last Modified By Organization Details Last Modified Time Details Appointments None record ed. Lab None record ed. Referral None record ed. Procedures None record ed. Surgeries None record ed. Imaging None record ed. Medication Orders None record ed. Patient TargetsNo targets recorded. Patient InstructionsNo instructions recorded. Reason for Referral None Reported. Results Created [...] Recorded Time Impacted cerumen of bilateral ears [id number] 67849 Active 2016 Impacted cerumen, bilateral ; Note: Date Diagnosed : 08/04/2016 10:37 AM (H61.23) KEO PHAM MD [address] [place] [address], [facility] [place], [address] , [place] - [facility] 14:55:19 Sensorine ural hearing loss of bilateral ears 447308507 Active 2016 Sensorine ural hearing loss, bilateral ; Note: Date Diagnosed : 08/04/2016 9:58 AM (H90.3) Not Available [facility] 4 02:48:53 Sensorine ural hearing loss of bilateral ears 966650375 Active 2024 VITA PERRY, JORDIN [address] [place] [address],[place] [address], [place], [address] , [facility] - [facility] 5 15:19:26 Problem Notes None recorded. Procedures Surgical History Date Name Laterality Status Provider Name and Address Organization Details Recorded Time 02/14/20 25 Comp Audio with Tymps - 31436 & 80917 completed JORDIN PUENTES [address] [place] [address],[place] [address], [place], [address], [facility] - [facility] 02/13/2025 15:18:51 02/14/20 25 Cerumen removal with microscope bilateral completed KEO PHAM MD [address] [place] [address], [place], [address], [place] - [facility] 02/13/2025 14:55:11 hysterectomy completed Reyna Solorio [place] - [facility] 02/13/2025 14:51:23 Eye Surgery completed Reyna Solorio [facility] 02/13/2025 14:51:31 Imaging Results None recorded. Procedure [...] mg tablet 02/13 completed Medicati on ID: [id number] D uration Value: 30 Brand Name: metformi [...] mg tablet 02/13 completed Medicati on ID: [id number] D uration Value: 30 Brand Name: lisinopr [...] ICD10 Code Diagnosis IMO Codes Diagnosis Note [id number] KEO PHAM MD [facility] [address] [address] 02/13/2025 14:30:24 02/13/2025 16:35:49 Impacted cerumen of bilateral ears [id number] 410565 H61.23 593862 Sensorineu ral hearing loss of bilateral ears 485765594 H90.3 88531206 Audiologic al evaluation results: Normal sloping to moderately -severe high frequency sensorineu ral hearing loss with bilaterall y. Word recognitio n was excellent in the right ear and fair in the left ear. Tympanomet ry: Right Ear:Type A Left Ear:Type A [id number] JORDIN PUENTES [facility] [address] [address] 02/13/2025 15:18:40 02/14/2025 09:14:06 Sensorineural hearing loss of bilateral ears 491601813 H90.3 [id number] Audiologic al evaluation results: Normal sloping to [...] Member ID Guarantor Name 02/13/2025 2 [place] [facility] Charis Sebastian [id number] Charis Sebastian 02/13/2025 1 MEDICARE B-[place]: [facility] Charis Sebastian [id number] Charis Sebastian Notes Date Note Type Note [...] ears may need cleaning. KEO PHAM MD [address] [place] [address], [address], [place] - [facility] 02/13/2025 15:56:44 02/13/2025 text/html Audiological Evaluation HPIReported by PatientHearing LossFor hearing loss perceived, patient reportsnone (no loss of audibility). JORDIN PUENTES [address] [place] [address], [address], [facility] - [facility] 02/13/2025 15:21:49 OBGyn Episode No OBEpisode recorded.
[2025-02-23 14:59] LABS: Uric Acid 7.3 mg/dL (2.4-5.7)
[2025-02-23 15:12] VITALS: BP 134/69; PULSE 79; RESP 16; TEMP 36.6; O2SAT 99
== END 2025-02-23 15:14 | disposition home or self-care (01) ==
PROVIDERS: Physician Assistant; Emergency Provider Emergency Medicine; PCP Internal Medicine
DX: M19.072 Primary osteoarthritis, left ankle and foot (principal); M25.572 Pain in left ankle and joints of left foot; R60.0 Localized edema; E11.9 Type 2 diabetes mellitus without complications; Z79.899 Other long term (current) drug therapy; Z79.84 Long term (current) use of oral hypoglycemic drugs; Z51.81 Encounter for therapeutic drug level monitoring
CPT/HCPCS: 36415; 73610; 73630; 80053; 84550; 85025; 85610; 85730; 93971; 99282; 99284

== ENCOUNTER → 2025-02-23 11:46 | Outpatient (BNV) | payer MEDICARE, MEDICAID, SELFPAY | PROVIDERS: PCP Internal Medicine; Visit Provider Radiology Body Imaging | DX: M25.572 Pain in left ankle and joints of left foot (principal); R22.42 Localized swelling, mass and lump, left lower limb | CPT/HCPCS: 73610; 73630; 93971 ==

== ENCOUNTER 2025-03-14 14:08 | Outpatient (AMB) | payer MEDICARE, MEDICAID, SELFPAY ==
--- NOTE | 2025-03-14 14:22 | A.OFFPC_ITS ---
Vital Signs 03/14/25 14:24 Height 5 ft 4 in Weight 128 lb 2 oz BMI 22.0 BP 122/70 Blood Pressure Location Lt brachial Position Sitting Pulse 67 Pulse Source Pulse Oximeter Temp 97.1 F Temp Source Temporal Artery Scan Pulse Oximetry (%) 98 Oxygen Delivery Method Room Air Intake Visit Reasons: dm/hld/BPH/anemia/copd - see comments Intake Note: Patient is here to follow up on DM, HLD, BPH, Anemia, COPD. Munitions Factory Worker Required: No Supervisor Inventory Merchandising: Not Required per policy Accompanied by: Self / Same As Patient Allergies No Known Allergies Allergy (Verified 03/14/25 14:23) Tobacco use date assessed: 03/14/25 Fall risk assessment: No Falls in past year Last assessed Fall Risk: 03/14/25 Dental Screening Dental Screen Date: 07/20/24 [facility] Medical History Decreased hearing of left ear Tachycardia Rheumatoid factor positive Allergic conjunctivitis Adult general medical exam Screening for diabetes mellitus Hyperlipidemia Type 2 diabetes mellitus with hyperglycemia Hypercholesterolemia with hypertriglyceridemia Benign essential HTN Surgical History History of colonoscopy (~08/20/17) History of partial hysterectomy History of eye surgery Family History Father No problems noted. Mother No problems noted. Sister No problems noted. Social History Household Members: Family Housing: House Alcohol intake: never Patient Tobacco Use Status: Never used Tobacco e-Cigarette/Vaping Use: Never Used Second Hand Smoke Exposure: No service: No Current occupational status: retired Cognitive needs: No Hearing needs: No Vision needs: No Questionnaire PHQ-9 Over the last 2 weeks, how often have you been bothered by any of the following problems? 1. Little interest or pleasure in doing things: nearly every day 2. Feeling down, depressed, or hopeless: not at all 3. Trouble falling or staying asleep, or sleeping too much: not at all 4. Feeling tired or having little energy: not at all 5. Poor appetite or overeating: not at all 6. Feeling bad about yourself - or that you are a failure or have let yourself or your family down: not at all 7. Trouble concentrating on things, such as reading the newspaper or watching television: not at all 8. Moving or speaking so slowly that other people could have noticed. Or the opposite - being so fidgety or restless that you have been moving around a lot more than usual: not at all 9. Thoughts that you would be better off or of hurting yourself in some way: not at all Total score: 3 Depression Screening Interpretation: Positive Depression Screening Done: Yes Source: Developed by Drs. Javier Marmolejo, Miya Abernathy, Blayne Price and colleagues, with an educational lindsay from [employer]. Thrive Questionnaire Date Thrive assessed: 05/26/24 I am a: Patient What is your living situation today?: I have a steady place to live Within the past 12 months, did the food you bought not last and you didn't have the money to get more?: Never true Within the past 12 months, did you worry whether your food would run out before you got money to buy more?: Never true Do you have trouble paying for medicines?: No Do you have trouble getting transportation to medical appointments?: No Do you have trouble paying your heating and electricity bill?: No Do you have trouble taking care of your child, family member or friend?: No Do you have trouble with day-to-day activities such as bathing, preparing meals, shopping, managing finances, etc.?: No Are you currently unemployed and looking for a job?: No Are you interested in more education?: I choose not to answer this question Please select the resources that you would like help with: None Currently or been in a relationship where the following occur: No concerns reported THRIVE Score: 0 AUDIT C Alcohol Use Questionnaire (AUDIT-C) 1. How often do you have a drink containing alcohol?: Never Total Score: 0 JEROME-7 AMB Questionnaire JEROME-7 Date JEROME - 7 assessed: 05/26/24 Feeling nervous, anxious, or on edge: 0 = Not at all Not being able to stop or control worryin = Not at all Worrying too much about different things: 0 = Not at all Trouble relaxin = Not at all Being so restless that it is hard to sit still: 0 = Not at all Becoming easily annoyed or irritable: 0 = Not at all Feeling afraid as if something awful might happen: 0 = Not at all Total JEROME-7 score (0-4 normal; 5-9 mild; 10-14 moderate; 15-21 severe): 0 Source: Developed by Drs. Javier Marmolejo, Miya Abernathy, Blayne Price and colleagues, with an educational lindsay from [employer]. Physical exam (Primary Care) Vital Signs: Last Vital Signs Temp 97.1 F 03/14/25 14:24 Pulse 67 03/14/25 14:24 BP 122/70 03/14/25 14:24 Pulse Ox 98 03/14/25 14:24 Oxygen Delivery Method Room Air 03/14/25 14:24 BMI result Body Mass Index 22.0 Tobacco/Smoking Status: Tobacco use Status Tobacco use date assessed 03/14/25 03/14/25 14:32 Patient Tobacco Use Status Never used Tobacco 03/14/25 14:32 e-Cigarette/Vaping Use Never Used 03/14/25 14:32 PHQ-9: PHQ-9 Score PHQ-9: Total score 3 03/14/25 14:32 Depression Screening Interpretation: Positive Thrive Assessment: Date of Thrive Assessment Date Thrive assessed 05/26/24 03/14/25 14:32 Currently or been in a relationship where the following occur: No concerns reported Results AMB Hemoglobin A1c AMB Hemoglobin A1c 7.9 % Last Edit by PATRICIA Silva on 03/14/25 14:36 Results Reviewed Results Reviewed: Laboratory Last Values Hgb A1c (Clinic) 7.9 % (4.0-6.0) H 03/14/25 14:21 Coding Level of Care Code Est Pt Level 4 (67587) Add On Problem Visit Only Diagnoses Type 2 diabetes mellitus with hyperglycemia, without long-term current use of insulin E11.65 Diabetes mellitus superintendent container terminal insulin use: without superintendent container terminal use Assessment & Plan Assessment & Plan (1) Type 2 diabetes mellitus with hyperglycemia: Code(s): E11.65 - Type 2 diabetes mellitus with hyperglycemia Category: Medical Qualifiers: Diabetes mellitus superintendent container terminal insulin use: without superintendent container terminal use Qualified Code(s): E11.65 - Type 2 diabetes mellitus with hyperglycemia Plan: History of Present Illness - The patient is a 69 year old female presenting for a follow-up visit. - She recently visited the ER for left foot pain, which was diagnosed as arthritis following an x-ray, ultrasound, and lab work. - The pain was localized to one area of her left foot, associated with a knot that grew larger, and was severe enough in February that she could barely walk or put pressure on it. - The patient reports her foot is now way better. - The patient's sugars have been slightly elevated, which she attributes to her diet during the holidays. - She has been experiencing an occasional burning sensation, which has been attributed to high blood sugar. - She reports taking her medications for diabetes, including Jardiance, glipizide, and metformin. - The patient reports being up to date on her health screenings. - She had a mammogram last month at [facility] in [place]. - She has not yet received her flu shot for the year. Social History Review of Systems - General: Denies any acute concerns. - Musculoskeletal: Reports resolved left foot pain, previously severe enough to impair ambulation. The pain was localized to one area and associated with a palpable knot. - Neurological: Reports an occasional burning sensation. Physical Exam General: Cooperative and healthy appearing Nutritional Appearance: Well nourished Orientation/consciousness: Patient oriented x3 Limitations: No limitations Head: Normal to inspection General: Appearance normal, both eyes and all related structures Neck: Normal visual inspection Chest: Normal palpation of entire chest wall Respiratory: Normal respiratory effort Neurology: Patient oriented x3 Results - Hemoglobin A1c: 7.9% today. - The patient recently had an x-ray and ultrasound of her foot at the ER, which showed arthritis. - The patient had a mammogram last month. Plan - The patient will be administered an influenza vaccine today. - The patient will continue her current diabetes medications, including Jardiance, glipizide, and metformin. - The patient was advised to be careful with her diet to help lower her blood sugar levels, which have increased during the holidays. - A request will be sent to obtain the report from her recent mammogram. - The patient will follow up as scheduled. Discussion Notes I reviewed the patient's recent emergency room visit for left foot pain, where she was diagnosed with arthritis. We discussed her recent HbA1c of 7.9% and the importance of dietary management to lower her blood sugar, especially following the holidays. I confirmed that she is adherent to her diabetes medications. We also confirmed she is up to date on her screenings, and I will request the report from her recent mammogram. The patient agreed to receive the influenza vaccine during today's visit. Patient Instructions - Continue taking all your medications as prescribed, including Jardiance, glipizide, and metformin. - Be mindful of your diet to help lower your blood sugar levels, as they are currently high. - You will receive your flu shot today. - We will see you back for your next scheduled appointment. Orders: Orders AMB Hemoglobin A1c Today E11.65 - Type 2 diabetes mellitus with hyperglycemia
[2025-03-14 14:24] VITALS: BP 122/70; PULSE 67; TEMP 36.2; O2SAT 98; BMI 22.0
--- OUTSIDE RECORDS SUMMARY | 2025-03-14 22:04 | XMS_ITS | Encounter Summary ---
Author Organization [facility] Address [address] [place] [address] [place] [phone] Phone Care Team Providers Care Machine Molder Squeeze Name Role Phone Jeremy Yip MD Primary Care Provid er Reason for Visit * Reason Comments Medication Refill Encounter Details Date Type Department Care Team (Late st Contact Info) Description 03/14/2025 Refill [facility] [address] [place] [phone] Jessie Burkett MD [address] [place] [address] [email or web address] Medication Refill Social History Tobacco Use Types Packs/Day Years Used Date Smoking Tobacco: Never Passive Smoke Exposure: Past Smokeless Tobacco: Never Alcohol Use Standard Drinks/Week Comments Never 0 [...] on file Sexual Orientation Not on file documented as of this encounter Progress Notes * Gisselle Mejia MA - 03/14/2025 8:02 AM EST Rx Care Gap Status - Instructions for Clinical Staff (prescriber discretion applies): > Mismatch review guide > At least one request does not meet full criteria. Specifics below. > Labs due: Please remind patient. > Orders needed: Click OPA and Accept to open SmartSet. A1c BMP Lipid panel - Needs order * Urine Microalbumin Visit Info Last visit: 03/15/2024 Jessie Burkett MD - Endocrinology [facility] > Requested f/u: Return in about 6 months (around 09/13/2024). Upcoming visit: 06/07/2025 Jessie Burkett MD - Endocrinology [facility] ACTIONS TAKEN BY Gisselle Mejia MA - Labs needed - Teed up orders and/or reminded pt. Diabetes Rx Protocol (on Diabetes Registry) - glipizide Criteria not met; renew for up to 3 months. Visit in the past 14 months: Yes Clinical criteria: - BMP within past year: None (has active order) - A1c within past 6 months: None (has active order) - Lipid panel within past year: No (No prior value) - Urine microalbumin within past year or on RANDA/ARB: None (has active order) Health Maintenance Labs Due / Due Soon Topic Date Due HEMOGLOBIN A1C Never done LIPID PANEL Never done URINE MICROALBUMIN/CREATININE RATIO Never done documented in this encounter Plan of Treatment Upcoming Encounters Date Type Department Care Team (Late st Contact Info) Description 06/07/2025 10:40 AM EST Office Visit [facility] [address] [place] [address] [place] [phone] Jessie Burkett MD [address] [place] [phone] 10/26/2025 10:00 AM EDT Office Visit [facility] [address] [place] [address] [place] [address] Jessie Burkett MD [address] [place] [address] [email or web address] documented as of this encounter Visit Diagnoses Diagnosis Type 2 diabetes mellitus with peripheral neuropathy documented in this encounter Care Teams Machine Molder Squeeze Relationship Specialty Start Date End Date Jeremy Yip MD [address] [place] [phone] PCP - General Internal Medicine 09/02/22 documented as of this encounter Additional Source Comments The information contained in this document represents components of the legal health record. It is not the complete legal health record.[facility]
--- OUTSIDE RECORDS SUMMARY | 2025-03-14 22:04 | XMS_ITS | Clinical Summary ---
Author Organization [facility] Address [address] [place] [phone] Phone Care Team Providers Care Locker Plant Attendant Name Role Phone Jeremy Yip MD Primary Care Provid er Allergies No known active allergies Medications hydroCHLOROthi azide (HYDRODIURIL) 25 MG tablet 08/20/19 23 Active metoprolol succinate (TOPROL-XL) 50 MG 24 hr tablet Take 1 tablet by mouth 2 (two) times a day. 08/03/19 23 Active simvastatin (ZOCOR) 10 MG tablet 08/20/19 23 Active aspirin 81 MG EC tablet Take 81 mg by mouth 3 (three) times a week on Wednesday, Wednesday, Wednesday. Active ferrous sulfate 325 mg (65 mg [place] iron) tablet Take 325 mg by mouth daily with breakfast. Active FREESTYLE LITE METER meter kit by Other route as needed. Use as instructed Active JARDIANCE 25 mg tablet Take 25 mg by mouth daily. 07/15/19 24 Active brimonidine (ALPHAGAN) 0.2 % ophthalmic solution Place 1 drop into each eye 2 (two) times a day. 08/18/19 24 Active cyanocobalamin , vitamin B-12, 250 MCG tabletIndicati ons:Low vitamin B12 level Take 1 tablet (250 mcg total) by mouth daily. 30 tablet 11 09/03/19 24 Active FREESTYLE LITE Strp stripsIndicati ons:Type 2 diabetes mellitus with peripheral neuropathy USE TO TEST BLOOD SUGAR ONCE EVERY MORNING 100 strip 3 04/07/19 25 Active FREESTYLE 28 gauge lancetsIndicat ions:Type 2 diabetes mellitus with peripheral neuropathy Use 1 lancet twice daily. 200 each 3 06/14/19 25 Active metFORMIN (GLUCOPHAGE) 1000 MG tabletIndicati ons:Type 2 diabetes mellitus with peripheral neuropathy Take 1 tablet by mouth twice daily with meals. 180 tablet 1 10/11/19 25 Active glipiZIDE (GLUCOTROL XL) 5 MG 24 hr tabletIndicati ons:Type 2 diabetes mellitus with peripheral neuropathy TAKE 1 TO 2 TABLETS BY MOUTH 2 (TWO) TIMES DAILY WITH MEALS 360 tablet 03/14/20 25 Active glipiZIDE (GLUCOTROL XL) 5 MG 24 hr tabletIndicati ons:Type 2 diabetes mellitus with peripheral neuropathy TAKE 1 TO 2 TABLETS BY MOUTH 2 (TWO) TIMES DAILY WITH MEALS 360 tablet 1 09/26/19 25 025 Discontinued Active Problems Problem Noted Date Diagnosed Date [...] small nodules w/o suspicious appearance; u/s stable 2020 - [facility] Assessment & Plan (03/15/2024 1:14 PM EST): Has had multiple small (subcm) nodules w/o suspicious appearance; u/s stable 2020 - [facility]. Has been euthyroid. Will continue [...] Encounters Date Type Department Care Team Description 03/14/2025 Refill [facility] [address] [place] [address] [place] [phone] Jessie Burkett MD Medication Refill from Last [...] AM EST Office Visit [facility] [address] [place] [address] Jessie Burkett MD [address] [place] [address] 10/26/2025 10:00 AM EDT Office Visit [facility] [address] [place] [address] Jessie Burkett MD [address] [place] [address] [email or web address] Health Maintenance Due Date Last Done Comments [...] Blood us Jessie Burkett MD LAB BLOOD BKR ORDERABL ES Final Result [facility] [address] [place] [address] from Last 3 Months or Most Recently Relevant to Health Maintenance Insurance MEDICARE PART A & B [facility] & B [facility] FULL [facility] MEDICARE PART A & B HEALTH SAFETY NET FULL Member Subscriber Plan / Payer (Ef fective 2023-Present) Name:Charis Sebastian Relation to Subscriber:Self Name:Charis Sebastian Payer ID:Not on file Group ID:Not on file Type:Medicaid Address: [address] MEDICARE PART A & B [employer] SAFETY NET FULL Member Subscriber Plan / Payer (Ef fective 2023-Present) Name:Charis Sebastian Relation to Subscriber:Self Name:Charis Sebastian Payer ID:Not on file Group ID:Not on file Type:Medicaid Address: [address] MEDICARE PART A & B [facility] FULL [facility] MEDICARE PART A & B [facility] FULL Care Teams Locker Plant Attendant Relationship Specialty Start Date End Date Jeremy Yip MD [address] [place] [phone] PCP - General Internal Medicine 09/02/22 Additional Source Comments The information contained in this document represents components of the legal health record. It is not the complete legal health record.[facility]
--- OUTSIDE RECORDS SUMMARY | 2025-03-14 22:04 | XMS_ITS | Clinical Summary ---
Author Organization [facility] Address [address] [place] [address] Care Team Providers Care Laboratory Monitor Name Role Phone Ale Ledezma Primary Care Provider [phone] Social History Tobacco Use Types Packs/Day Years [...] age to complete this topic Care Teams Laboratory Monitor Relationship Specialty Start Date End Date Ale Ledezma [address] [place] [address] Dr Qian MA PCP - General Internal Medicine 04/13/11
--- OUTSIDE RECORDS SUMMARY | 2025-03-14 22:04 | XMS_ITS | Continuity of Care Document ---
Author Organization [place] - [facility], E[facility] Address [address] [place] [address] Care Team Providers Care Pan Washer Hand Name Role Phone MARIEALEXX Primary Care Provider ANGELINA GUERRERO Referring Provider [phone] Assessment Encounter Date Assessment Date Assessment LastModified by Organization Details LastModified Time 02/13/2025 02/13/2025 Follow up with referring provider. [email or web address] Not available 02/13/2025 15:18:51 Plan of Treatment [...] record ed. 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 6 mL of Elucir em was admini stered intrav enousl y. COMPAR JORGE: Brain MRI 022. FINDIN GS: IAC: There is no mass or abnorm al enhanc ement in the technical internship al audito ry canals or cerebe llopon ashley angles . Course and calibe r of the 7th and 8th crania l nerves is normal bilate rally. Fluid signal is preser isaac in the inner ear struct ures bilate rally. Brains tem demons trates normal signal . BRAIN and EXTRA- AXIAL SPACES : The ventri cles and sulci are global ly promin ent reflec ting volume loss and there are scatte red nonspe cific T2 hyperi ntensi ties in the white matter which most likely reflec t chroni c small vessel diseas e. EXTRAC RANIAL SOFT TISSUE S: Visual ized portio ns of the extrac ranial soft tissue s are unrema rkable . BONES: Visual ized marrow signal is preser isaac. IMPRES NE: No retroc ochlea r abnorm ality to explai n the patien t?s sympto ms. WSN: [id number] Orderi ng Physic raz: Bethel Ryan P Electr onical ly Signed By: Adeola [email or web address] [facility] ([facility]) [address], [place], [address], 03/08/2025 14:45:10 Result Notes None recorded. Problems Name Problem SNOMED Code Status Onset Date Resolution Date Notes Provider Name and Address Organization Details Recorded Time Impacted cerumen of bilateral ears [id number] 20438 Active 2016 Impacted cerumen, bilateral ; Note: Date Diagnosed : 08/04/2016 10:37 AM (H61.23) KEO RYAN MD [address] [facility],[place] [address], [place], [address] , [place] - [facility] 5 14:55:19 Sensorine ural hearing loss of bilateral ears 664957028 Active 2016 Sensorine ural hearing loss, bilateral ; Note: Date Diagnosed : 08/04/2016 9:58 AM (H90.3) Not Available [facility] 4 02:48:53 Sensorine ural hearing loss of bilateral ears 886763634 Active 2024 JORDIN PUENTES [address] [facility],[place] [address], [facility] [place], [address] , [place] - [facility] 5 15:19:26 Problem Notes None recorded. Procedures Surgical History Date Name Laterality Status Provider Name and Address Organization Details Recorded Time 02/14/20 25 Comp Audio with Tymps - 79113 & 45024 completed JORDIN PUENTES [address] [facility],[place] [address], [place], [address], [place] - [facility] 02/13/2025 15:18:51 02/14/20 25 Cerumen removal with microscope bilateral completed KEO RYAN MD [address] [facility],[place] [address], [place], [address], [place] - [facility] 02/13/2025 14:55:11 hysterectomy completed Reyna Solorio [place] - [facility] 02/13/2025 14:51:23 Eye Surgery completed Reyna Solorio [place] - [facility] 02/13/2025 14:51:31 Imaging Results None recorded. Procedure [...] mg tablet 02/13 completed Medicati on ID: [id number] D uration Value: 30 Brand Name: metformi [...] mg tablet 02/13 completed Medicati on ID: [id number] D uration Value: 30 Brand Name: lisinopr il Send Method: E-Prescr ibed Sub s Allowed: subs OK Speci al Instruct ion: TAKE 1 TABLET BY MOUTH DAILY Me dication GenericN rosina: lisinopr il Not Available Not Available Not [...] History Nothing Reported. Medical History Condition Response Hearing Loss Y High Cholesterol Y Allergies/Hayfever Y Diabetes Y Hyperlipidemia Y Hypertension Y Gynecological HistoryNo gynecological history recorded. Obstetrics History GPAL:G 0 P 0 0 0 0 Past Encounters Encounter ID Performer Location Encounter Start Date Encounter Closed Date Diagnosis/Indication Diagnosis SNOMED-CT Code Diagnosis ICD10 Code Diagnosis IMO Codes Diagnosis Note [id number] KEO RYAN MD [facility] of [address] [address] 02/13/2025 14:30:24 02/13/2025 16:35:49 Impacted cerumen of bilateral ears [id number] 293542 H61.23 [id number] Sensorineu ral hearing loss of bilateral ears 851463719 H90.3 [id number] Audiologic al evaluation results: Normal sloping to moderately -severe high frequency sensorineu ral hearing loss with bilaterall y. Word recognitio n was excellent in the right ear and fair in the left ear. Tympanomet ry: Right Ear:Type A Left Ear:Type A [id number] JORDIN PUENTES [facility] of [address] [address] 02/13/2025 15:18:40 02/14/2025 09:14:06 Sensorineural hearing loss of bilateral ears 398026284 H90.3 [id number] Audiologic al evaluation results: Normal sloping to [...] Member ID Guarantor Name 02/13/2025 2 [place] Charis Sebastian [id number] Charis Sebastian 02/13/2025 1 MEDICARE B-[place]: [employer] Charis Sebastian [id number] Charis Sebastian Notes Date Note Type Note [...] that her ears may need cleaning. KEO RYAN MD [address] [place] [address], [address], [place] - [facility] 02/13/2025 15:56:44 02/13/2025 text/html Audiological Evaluation HPIReported by PatientHearing LossFor hearing loss perceived, patient reportsnone (no loss of audibility). JORDIN PUENTES [address] [place] [address], [address], [place] - [facility] 02/13/2025 15:21:49 OBGyn Episode No OBEpisode recorded.
--- OUTSIDE RECORDS SUMMARY | 2025-03-14 22:05 | XMS_ITS | Data Portability ---
Author Organization [place] - [facility], Allergy Address [address] [address] Care Team Providers Care Inspector Weights And Measures Name Role Phone ALEXX SALAZAR Primary Care [...] her through the portal with these results. [email or web address] Not available 02/13/2025 15:56:20 Plan of Treatment Reminders Order Date Submit Date Provider Last Modified By Organization Details Last Modified Time Details Appointments None recorded. Lab None recorded. Referral None recorded. Procedures None recorded. Surgeries None recorded. Imaging MRI, brain + internal auditory canal, w/wo contrast - MRI, BRAIN + INTERNAL AUDITORY CANAL, W/WO CONTRAST 2024 025 [facility] ([facility]), [address] [facility], [place], [address], 5 04:22:33 Medication Orders None recorded. Patient TargetsNo targets recorded. Patient Instructions Encounter Date Encounter Id Patient Instructions Last Modified By Organization Details Last Modified Time 02/13/2025 [id number] - Follow up afte r the hearing test for further evaluation. - Monitor ear health and report any new symptoms or concerns. [email or web address] Not available 02/13/2025 14:54:26 Please note: Parts of this encounter note have been generated by AI based on audio conversation. Patient consent was required prior to utilizing this technology. Content review was required prior to finalizing the note. [email or web address] Not available 02/13/2025 14:54:26 Reason for Referral None Reported. Results Created Date Observation Date Name Description Value Unit Range Abnormal Flag Note LastModifiedBy Organization Detail LastModifiedTime 02/14/20 audio gram No observ ation record ed. BARCODE Not Available 2024 18:17:44 03/05/2003/02/2025 MRI, brain + brain stem, w/wo contr ast [facility] Access ion Number : [id number] Patien t Name: Jewell Sebastian Medica l Record Number : [id number] Date of : 1955 Date of Exam: 2024 Referr ing Physic raz: Bethel Ryan re Ear Nose [address] [place] [address] Exam: MR Brain (C-/C+ ) CPT 77875 [facility] W+W/O Contra st INDICA TION / CLINIC AL QUESTI ON: Reason For Exam: H90.3 - Sensor ineura l hearin g loss, bilate ral, , MRI, BRAIN + COIL CLEANER AL AUDITO RY CANAL, W/WO CONTRA ST - TECHNI QUE: MRI of the brain with attent ion to the nutrition intern al audito ry canals was perfor med [...] or abnorm al enhanc ement in the nutrition intern al audito ry canals or cerebe llopon [...] n the patien t?s sympto ms. WSN: [id number] Orderi ng Physic raz: Bethel Ryan P Electr onical ly Signed By: Adeola [email or web address] [facility] ([facility]) [address] [place], [address], 03/08/2025 14:45:10 Result Notes Documentation Provider Name and Address Organization Details Recorded Time Mri, Brain + Brain Stem, W/wo Contrast : [facility] Accession Number: [id number] Patient Name: Charis Sebastian Date of : 1955 Date of Exam: 03-02-2025 Referring Physician: Keo Ryan [facility] [address] [facility] [address] [place] [address] Exam: MR Brain (C-/C+) CPT 06248 Room Description: [facility] 3T MRI Brain W+W/O Contrast INDICATION / CLINICAL QUESTION: Reason For Exam: H90.3 - Sensorineural hearing loss, bilateral, , MRI, BRAIN + INTERNAL AUDITORY CANAL, W/WO CONTRAST - TECHNIQUE: MRI of the brain with attention to the internal auditory canals was performed with and without contrast utilizing sagittal T1, axial T2, axial FLAIR, axial 3D T2 CUBE, axial and coronal T1, and post-contrast axial and coronal T1-weighted sequences. 6 mL of Elucirem was administered intravenously. COMPARISON: Brain MRI 02/09/2022. FINDINGS: IAC: There is no mass or abnormal enhancement in the internal auditory canals or cerebellopontine angles. Course and caliber of the 7th and 8th cranial nerves is normal bilaterally. Fluid signal is preserved in the inner ear structures bilaterally. Brainstem demonstrates normal signal. BRAIN and EXTRA-AXIAL SPACES: The ventricles and sulci are globally prominent reflecting volume loss and there are scattered nonspecific T2 hyperintensities in the white matter which most likely reflect chronic small vessel disease. EXTRACRANIAL SOFT TISSUES: Visualized portions of the extracranial soft tissues are unremarkable. BONES: Visualized marrow signal is preserved. IMPRESSION: No retrocochlear abnormality to explain the patient?s symptoms. WSN: [id number] Ordering Physician: Keo Ryan Electronically Signed By: Adeola ny [place] - [facility] 03/08/2025 14:45:10 Problems Name Problem SNOMED Code Status Onset Date Resolution Date Notes Provider Name and Address Organization Details Recorded Time Impacted cerumen of bilateral ears [id number] 95256 Active 2016 Impacted cerumen, bilateral ; Note: Date Diagnosed : 08/04/2016 10:37 AM (H61.23) KEO RYAN MD [address] [place] [address], [place], [address] , [facility] 5 14:55:19 Sensorine ural hearing loss of bilateral ears 826513145 Active 2016 Sensorine ural hearing loss, bilateral ; Note: Date Diagnosed : 08/04/2016 9:58 AM (H90.3) Not Available [facility] 4 02:48:53 Sensorine ural hearing loss of bilateral ears 576867538 Active 2024 JORDIN PUENTES [address] [place] [address], [place], [address] , [facility] 5 15:19:26 Problem Notes None recorded. Procedures Surgical History Date Name Laterality Status Provider Name and Address Organization Details Recorded Time 02/14/20 Comp Audio with Tymps - 01404 & 48386 completed JORDIN PUENTES [address] [facility] [address], [place], [address], [facility] - [facility] 02/13/2025 15:18:51 02/14/20 Cerumen removal with microscope bilateral completed KEO RYAN MD [address] [facility], [address], [facility] - [facility] 02/13/2025 14:55:11 hysterectomy completed Reyna Solorio [place] - [facility] 02/13/2025 14:51:23 Eye Surgery completed Reyna Solorio [place] [facility] 02/13/2025 14:51:31 Imaging Results None recorded. [...] mg tablet 02/13 completed Medicati on ID: [id number] D uration Value: 30 Brand Name: metformi [...] mg tablet 02/13 completed Medicati on ID: [id number] D uration Value: 30 Brand Name: lisinopr [...] ICD10 Code Diagnosis IMO Codes Diagnosis Note [id number] KEO RYAN MD [facility] of [address] [address] 02/13/2025 14:30:24 02/13/2025 16:35:49 Impacted cerumen of bilateral ears [id number] 220190 H61.23 884242 Sensorineu ral hearing loss of bilateral ears 310829040 H90.3 [id number] Audiologic al evaluation results: Normal sloping to moderately -severe high frequency sensorineu ral hearing loss with bilaterall y. Word recognitio n was excellent in the right ear and fair in the left ear. Tympanomet ry: Right Ear:Type A Left Ear:Type A [id number] JORDIN PUENTES [facility] of [address] [address] 02/13/2025 15:18:40 02/14/2025 09:14:06 Sensorineural hearing loss of bilateral ears 655816006 H90.3 [id number] Audiologic al evaluation results: Normal sloping to [...] [place] Member ID Guarantor Name 02/13/2025 2 [place] [facility] Charis Sebastian [id number] Charis Sebastian 02/13/2025 1 [place]ICARE B-[place]: [facility] Charis Sebastian [id number] Charis Sebastian Notes Date Note Type Note [...] ears may need cleaning. KEO RYAN MD [address] [facility], [address], [facility] - [facility] 02/13/2025 15:56:44 02/13/2025 text/html Audiological Evaluation HPIReported by PatientHearing LossFor hearing loss perceived, patient reportsnone (no loss of audibility). JORDIN PUENTES [address] [facility],[place] [address], [place], [address], [facility] 02/13/2025 15:21:49 OBGyn Episode No OBEpisode recorded.
--- OUTSIDE RECORDS SUMMARY | 2025-03-14 22:05 | XMS_ITS | Continuity of Care Document ---
Author Organization [place] - [facility], ENTS [facility] Address [address] [place] [address] Care Team Providers Care Sled Maker Name Role Phone ALEXX SALAZAR Primary Care Provider ANGELINA GUERRERO Referring Provider [phone] Assessment Encounter Date Assessment Date Assessment LastModified [...] her through the portal with these results. [email or web address] Not available 02/13/2025 15:56:20 Plan of Treatment Reminders Order Date Submit Date Provider Last Modified By Organization Details Last Modified Time Details Appointments None recorded. Lab None recorded. Referral None recorded. Procedures None recorded. Surgeries None recorded. Imaging MRI, brain + internal auditory canal, w/wo contrast - MRI, BRAIN + INTERNAL AUDITORY CANAL, W/WO CONTRAST 2024 025 [facility] ([facility]), [address] [place], [address], 5 04:22:33 Medication Orders None recorded. Patient TargetsNo targets recorded. Patient Instructions Encounter Date Encounter Id Patient Instructions Last Modified By Organization Details Last Modified Time 02/13/2025 [id number] - Follow up afte r the hearing test for further evaluation. - Monitor ear health and report any new symptoms or concerns. [email or web address] Not available 02/13/2025 14:54:26 Please note: Parts of this encounter note have been generated by AI based on audio conversation. Patient consent was required prior to utilizing this technology. Content review was required prior to finalizing the note. [email or web address] Not available 02/13/2025 14:54:26 Reason for Referral None Reported. Results Created Date Observation Date Name Description Value Unit Range Abnormal Flag Note LastModifiedBy Organization Detail LastModifiedTime 02/14/20 audio gram No observ ation record ed. BARCODE Not Available 2024 18:17:44 03/05/20 25 03/02/2025 MRI, brain + brain stem, w/wo contr ast [facility] Access ion Number : [id number] Patimargaret t Name: Jewell Sebastian Medica l Record Number : [id number] Date of : 1955 Date of Exam: 2024 Referr ing Physic raz: Bethel Ryan re Ear Nose [address] [place] [address] Exam: MR Brain (C-/C+ ) CPT 23742 Room Descri ption: [facility] 3T MRI Brain W+W/O Contra st INDICA TION / CLINIC AL QUESTI ON: Reason For Exam: H90.3 - Sensor ineura l hearin g loss, bilate ral, , MRI, BRAIN + HAT BODY SORTER AL AUDITO RY CANAL, W/WO CONTRA ST - TECHNI QUE: MRI of the brain with attent ion to the internet and e business project manager al audito ry canals was perfor med [...] or abnorm al enhanc ement in the internet and e business project manager al audito ry canals or cerebe llopon [...] n the patien t?s sympto ms. WSN: [id number] Orderi ng Physic raz: Bethel Ryan re P Electr onical ly Signed By: Adeola gvain MD [email or web address] [facility] ([facility]) [address] [place], [address], 03/08/2025 14:45:10 Result Notes None recorded. Problems Name Problem SNOMED Code Status Onset Date Resolution Date Notes Provider Name and Address Organization Details Recorded Time Impacted cerumen of bilateral ears 28834817525 64951 Active 2016 Impacted cerumen, bilateral ; Note: Date Diagnosed : 08/04/2016 10:37 AM (H61.23) KEO RYAN MD [address] [address], [place], [address] , [facility] - [facility] 5 14:55:19 Sensorine ural hearing loss of bilateral ears 568000225 Active 2016 Sensorine ural hearing loss, bilateral ; Note: Date Diagnosed : 08/04/2016 9:58 AM (H90.3) Not Available [facility] 4 02:48:53 Sensorine ural hearing loss of bilateral ears 419630110 Active 2024 JORDIN PUENTES [address] [place] [address], [place], [address] , [facility] - [facility] 15:19:26 Problem Notes None recorded. Procedures Surgical History Date Name Laterality Status Provider Name and Address Organization Details Recorded Time 02/14/20 25 Comp Audio with Tymps - 38047 & 15559 completed VITA PERRY, AUD [address] [facility],[place] [address], [place], [address], [facility] - [facility] 02/13/2025 15:18:51 02/14/20 Cerumen removal with microscope bilateral completed KEO RYAN MD [address] [facility],[place] [address], [place], [address], [place] - [facility] 02/13/2025 14:55:11 hysterectomy completed Reyna Solorio [place] - [facility] 02/13/2025 14:51:23 Eye Surgery completed Reyna Solorio [facility] 02/13/2025 [...] mg tablet 02/13 completed Medicati on ID: [id number] D uration Value: 30 Brand Name: metformi [...] mg tablet 02/13 completed Medicati on ID: [id number] D uration Value: 30 Brand Name: lisinopr [...] ICD10 Code Diagnosis IMO Codes Diagnosis Note [id number] KEO RYAN MD [facility] of [address] [address] 02/13/2025 14:30:24 02/13/2025 16:35:49 Impacted cerumen of bilateral ears 3576354472 248159 H61.23 713450 Sensorineu ral hearing loss of bilateral ears 006211243 H90.3 [id number] Audiologic al evaluation results: Normal sloping to moderately -severe high frequency sensorineu ral hearing loss with bilaterall y. Word recognitio n was excellent in the right ear and fair in the left ear. Tympanomet ry: Right Ear:Type A Left Ear:Type A [id number] JORDIN PUENTES [facility] of [address] [address] 02/13/2025 15:18:40 02/14/2025 09:14:06 Sensorineural hearing loss of bilateral ears 361725124 H90.3 [id number] Audiologic al evaluation results: Normal sloping to [...] Name 02/13/2025 2 [place] Charis Sebastian [id number] Charis Sebastian 02/13/2025 1 MEDICARE B-[place]: [employer] SERVICES Charis Sebastian [id number] Charis Sebastian Notes Date Note Type Note [...] may need cleaning. KEO RYAN MD [address], [address], [facility] 02/13/2025 15:56:44 02/13/2025 text/html Audiological Evaluation HPIReported by PatientHearing LossFor hearing loss perceived, patient reportsnone (no loss of audibility). JORDIN PUENTES [address] [address], [place], [address], [facility] 02/13/2025 15:21:49 OBGyn Episode No OBEpisode recorded.
== END 2025-03-14 15:18 | disposition home or self-care (01) ==
LOC: HO.HMCH 14:09
PROVIDERS: PCP Internal Medicine; Visit Provider Internal Medicine
DX: E11.65 Type 2 diabetes mellitus with hyperglycemia (principal); Z23 Encounter for immunization

== ENCOUNTER → 2025-03-14 14:08 | Outpatient (BNVA) | payer MEDICAID, SELFPAY | PROVIDERS: PCP Internal Medicine; Visit Provider Internal Medicine | DX: E11.65 Type 2 diabetes mellitus with hyperglycemia (principal); Z23 Encounter for immunization; Z13.31 Encounter for screening for depression | CPT/HCPCS: 83036; 90471; 90656; 96127; 99212 ==